=== PATIENT | male | born 1965 | race Caucasian/White ===

== ENCOUNTER 2022-08-02 17:26 | Emergency (ER) | payer OTHER ==
--- OUTSIDE RECORDS SUMMARY | 2022-08-02 17:29 | XMS REPORT | Continuity of Care Document ---
:1965 Author Organization [facility] t Address [address] [place] [address] Care Team Providers Name Role Phone Provider, [facility] Attending Clinician Unavailable Med Aguiar MD Attending Clinician MED AGUIAR Attending Clinician Unavailable Doctor Unassigned, [place] Attending Clinician Unavailable Problems Condition Condition Condition Status Onset Resolution Last Treating Co mments Source Name Details Category Date Date Treatment Clinician Date No known No known Disease Unive rs active active ity of problems problems [facility] Allergies, Adverse Reactions, Alerts Allergy Allergy Status Severity Reaction(s) Onset Inactive Treating Comm ents Source Name Type Date Date Clinician NO KNOWN Drug Active Univers ALLERGIE Class ity of S [facility] Social History Social Habit Start Date Stop Date Quantity Comments Source History of tobacco Cigarette Smoker University of use [facility] Exposure to Not sure [facility] SARS-CoV-2 (event) [facility] Cigarettes smoked 2020-12-04 2020-12-04 Univers ity of current (pack per 00:00:00 00:00:00 ) - Reported Branch Tobacco use and 2020-12-04 2020-12-04 Never used Universit y of exposure 00:00:00 00:00:00 [facility] Alcohol intake 2020-12-04 2020-12-04 Lifetime University of 00:00:00 00:00:00 non-drinker [facility] (finding) [place] Sex Ass[birth year] Universit y of 00:00:00 00:00:00 [facility] Smoking Status Start Date Stop Date Source Unknown if ever smoked [facility] Current every day smoker 2020-12-04 00:00:00 Uni versity of [facility] Medications Ordered Filled Start Stop Current Ordering Indication Dosage Frequency Signature Comments Components Source Medication Medication Date Date Medication? Clinician (SIG) Name Name sulfamethox 2020- No [id number] 1{tbl} Take 1 [facility] azole-trime 12-04 tablet by it y 00:00: 04:59 mouth 2 [place] (BACTRIM 00 :00 (two) Medical DS) 800-160 times Branch mg per daily for tablet 7 days. Vital Signs Vital Name Observation Time Observation Value Comments Source Systolic blood 2020-12-04 22:21:00 168 mm[Hg] Univer sity [facility] Diastolic blood 2020-12-04 22:21:00 107 [facility]Hg[facility] Heart rate 2020-12-04 22:14:00 87 /min [facility] Body temperature 2020-12-04 22:14:00 36.72 [facility] Res[facility] rate 2020-12-04 22:14:00 22 /min [facility] Body height 2020-12-04 22:14:00 182.9 cm [facility] Body weight 2020-12-04 22:14:00 145.746 kg [facility] BMI 2020-12-04 22:14:00 43.58 kg/m2 [facility] Oxygen saturation in 2020-12-04 22:14:00 99 /min [facility] Arterial blood by [facility] Pulse oximetry [place] Procedures Procedure Date / Time Performed Performing Clinician Sour e ASSIGNMENT OF BENEFITS 2020-12-04 22:07:06 Doctor Unassigned, No [facility] Branch Encounters Start End Encounter Admission Attending Care Care Encounter Source Date/Time Date/Time Type Type Clinicians Facility Department ID 2020-12-04 2020-12-04 Urgent Provider, [facility] [id number] Univers 17:09:14 18:03:41 Med [facility] [id number] madeleine gupta [place] [id number] [place] as Sofiya [phone] [place] [address] Branch [address] 2020-12-04 2020-12-04 Outpatient R STEFANIA [facility] [id number] Univers 16:40:00 16:40:00 MED ity of [facility] 2020-12-04 2020-12-04 Orders Doctor MARK [id number] [facility] 00:00:00 00:00:00 Only Unassigned, NISSA [id number] ity of [place] [facility] [id number] [place] [phone] [place] [address] Branch Results This patient has no known results.
[2022-08-02] MEDS ORDERED: TDAP (DIPHTH,PERTUSS(ACELL),TET VAC) 0.5 ML VIAL IMVAC ONE (19:07)
--- NOTE | 2022-08-02 19:19 | ER ---
Nurse's Notes [facility] [place] Name: Jorge Estrada Age: 56 yrs Sex: Male : 1965 Arrival Date: 08/02/2022 Time: 17:30 Bed DIS1 Private MD: Diagnosis: Laceration without foreign body, right lower leg Presentation: 08/02 17:34 Ebola Screen: Patient denies travel to an Ebola-affected area in the 21 days before 1 illness onset. Complicating Factors: There are no complicating factors for this patient. Initial Sepsis Screen: Does the patient meet any 2 criteria? No. Patient's initial sepsis screen is negative. Does the patient have a suspected source of infection? Yes: Skin breakdown/wound. Risk Assessment: Do you want to hurt yourself or someone else? Patient reports no desire to harm self or others. Onset of symptoms was August 02, 2022. 17:34 Method Of Arrival: Ambulatory ll1 17:34 Acuity: TALISHA 3 ll1 17:37 Chief complaint: Patient states: Accidentally cut R inner ankle when he dropped a knife ll1 on it 3 days ago. Started bleeding again today after showering. States BP is always that high. Coronavirus screen: Vaccine status: Patient reports being unvaccinated. Client denies travel out of the [place] in the last 14 days. At this time, the client does not indicate any symptoms associated with coronavirus-19. Triage Assessment: 17:40 General: Appears in no apparent distress. Behavior is calm, cooperative, appropriate ll1 for age. Pain: Complains of pain in R ankle Quality of pain is described as aching. Derm: Wound noted R inner ankle Reports laceration R inner ankle. Musculoskeletal: Circulation, motion, and sensation intact. Capillary refill < 3 seconds. Injury Description: Laceration. Historical: - Allergies: 17:33 No Known Drug Allergies; ll1 - Immunization history:: Client reports having NOT received the Covid vaccine. Last tetanus immunization: < 5 years ago. - Social history:: Smoking status: Patient reports the use of cigarette tobacco products, smokes one-half pack cigarettes per day. Screenin:25 [facility] ED Fall Risk Assessment (Adult) History of falling in the last 3 months, jb4 including since admission No falls in past 3 months (0 pts) Confusion or Disorientation No (0 pts) Intoxicated or Sedated No (0 pts) Impaired Gait No (0 pts) Mobility Assist Device Used No (0 pt) Altered Elimination No (0 pt) Score/Fall Risk Level 0 - 2 = Low Risk. Abuse screen: Denies threats or abuse. Nutritional screening: No deficits noted. Tuberculosis screening: No symptoms or risk factors identified. Assessment: 19:25 Reassessment: Patient appears in no apparent distress at this time. Patient and/or jb4 family updated on plan of care and expected duration. Pain level reassessed. Patient is alert, oriented x 3, equal unlabored respirations, skin warm/dry/pink. wound cleaned and bandaged. Vital Signs: 17:37 BP 206 / 133; Pulse 96; Resp 18; Temp 98.2; Pulse Ox 100% ; Weight 130.63 kg; Height 6 ll1 ft. 0 in. (182.88 cm); Pain 0/10; 17:37 Body Mass Index 39.06 (130.63 kg, 182.88 cm) ll1 ED Course: 17:30 Patient arrived in ED. rg4 17:34 Triage completed. ll1 17:34 Arm band placed on. ll1 18:38 Hardy Moreno NP is PHCP. pm1 18:38 Garland Reyna MD is Attending Physician. pm1 19:25 Patient has correct armband on for positive identification. Placed in gown. Bed in low jb4 position. Call light in reach. Side rails up X 1. 19:25 No provider procedures requiring assistance completed. Patient did not have IV access jb4 during this emergency room visit. Administered Medications: 19:20 Drug: Tetanus-Diphtheria Toxoid Adult 0.5 ml {Buyer Liaison: [employer] ([employer]). Exp: jb4 01/13/2023. Lot #: [id number]. } Route: IM; Site: left deltoid; Medication: 19:25 Vaccine Information Statement (VIS) provided today. Questions and/or concerns jb4 addressed. VIS edition date: February 04, 2021. Outcome: 19:18 Discharge ordered by . pm1 19:25 Discharged to home ambulatory. jb4 19:25 Condition: stable 19:25 Discharge instructions given to patient, Instructed on discharge instructions, follow up and referral plans. medication usage, wound care, Demonstrated understanding of instructions, follow-up care, medications, wound care, Prescriptions given X 1. 19:26 Patient left the ED. jb4 Signatures: Hardy Moreno NP ENROBING MACHINE FEEDER pm1 Jessi Ortiz rg4 Geovany Sky RN RN jb4 Meredith Roberts RN RN ll1 Corrections: (The following items were deleted from the chart) 17:40 17:37 Pulse 96bpm; Resp 18bpm; Pulse Ox 100%; Temp 98.2F; 130.63 kg; Height 6 ft. 0 ll1 in.; BMI: 39.0; Pain 0/10; ll1 17:42 17:37 Chief complaint: Patient states: Accidentally cut R inner ankle when he dropped a ll1 knife on it 3 days ago. Started bleeding again today after showering. ll1 17:43 17:34 Acuity: TALISHA 4 ll1 ll1
--- NOTE | 2022-08-02 19:19 | EDPHYS ---
Physician Documentation [facility] Name: Jorge Estrada Age: 56 yrs Sex: Male : 1965 Arrival Date: 08/02/2022 Time: 17:30 Bed DIS1 Private MD: ED Physician Garland Reyna HPI: 08/02 19:00 This 56 yrs old Male presents to ER via Ambulatory with complaints of Laceration To Leg.pm1 19:00 The patient has a laceration occurred at home, and there are no complicating factors. pm1 The laceration(s) is(are) located on the right heel medial aspect. Onset: The symptoms/episode began/occurred 3 day(s) ago. Associated signs and symptoms: The patient has no apparent associated signs or symptoms, Pertinent negatives: suspected foreign body, fever, swelling. The patient has not experienced similar symptoms in the past. The patient has not recently seen a physician. Historical: - Allergies: 17:33 No Known Drug Allergies; ll1 - Immunization history:: Client reports having NOT received the Covid vaccine. Last tetanus immunization: < 5 years ago. - Social history:: Smoking status: Patient reports the use of cigarette tobacco products, smokes one-half pack cigarettes per day. ROS: 19:00 Constitutional: Negative for fever, chills, and weight loss, Cardiovascular: Negative pm1 for chest pain, palpitations, and edema, Respiratory: Negative for shortness of breath, cough, wheezing, and pleuritic chest pain, MS/Extremity: Negative for injury and deformity. 19:00 Neuro: Negative for headache, weakness, numbness, tingling, and seizure. 19:00 Skin: Positive for laceration(s), of the right heel, Negative for cellulitis, discoloration, swelling, discharge. 19:00 All other systems are negative. Exam: 19:00 Constitutional: This is a well developed, well nourished patient who is awake, alert, pm1 and in no acute distress. Head/Face: Normocephalic, atraumatic. 19:00 MS/ Extremity: Pulses equal, no cyanosis. Neurovascular intact. Full, normal range of motion. 19:00 Cardiovascular: Exam negative for acute changes, Rate: normal, Rhythm: regular, Pulses: no pulse deficits are appreciated. 19:00 Respiratory: Exam negative for acute changes, respiratory distress, shortness of breath. 19:00 Skin: Appearance: normal except for affected area, injury, laceration(s), the wound is approximately 1.5 cm(s), of the right heel, that can be described as clean, no foreign body, irregular, without bleeding. Vital Signs: 17:37 BP 206 / 133; Pulse 96; Resp 18; Temp 98.2; Pulse Ox 100% ; Weight 130.63 kg; Height 6 ll1 ft. 0 in. (182.88 cm); Pain 0/10; 17:37 Body Mass Index 39.06 (130.63 kg, 182.88 cm) ll1 MDM: 19:00 Patient medically screened. pm1 19:17 Data reviewed: vital signs. pm1 19:17 Care significantly affected by the following chronic conditions: Diabetes. pm1 19:17 Counseling: I had a detailed discussion with the patient and/or guardian regarding: the pm1 historical points, exam findings, and any diagnostic results supporting the discharge/admit diagnosis, the need for outpatient follow up, to return to the emergency department if symptoms worsen or persist or if there are any questions or concerns that arise at home. 19:17 Differential diagnosis: superficial laceration, abrasion, cellulitis. pm1 08/02 19:00 Order name: Wound Care; Complete Time: 19:20 pm1 Administered Medications: 19:20 Drug: Tetanus-Diphtheria Toxoid Adult 0.5 ml {Industry Analyst: [employer] ([email or web address]). Exp: jb4 01/13/2023. Lot #: [id number]. } Route: IM; Site: left deltoid; Disposition Summary: 08/02/22 19:18 Discharge Ordered Location: Home pm1 Problem: new pm1 Symptoms: have improved pm1 Condition: Stable pm1 Diagnosis - Laceration without foreign body, right lower leg pm1 Followup: pm1 - With: Emergency Department - When: As needed - Reason: Worsening of condition Followup: pm1 - With: Private Physician - When: 2 - 3 days - Reason: Recheck today's complaints, Continuance of care, Re-evaluation by your physician Discharge Instructions: - Discharge Summary Sheet pm1 - Laceration Care, Adult pm1 Forms: - Medication Reconciliation Form pm1 - Thank You Letter pm1 - Antibiotic Education pm1 - Prescription Opioid Use pm1 Prescriptions: - Cephalexin 500 mg Oral Capsule - take 1 capsule by ORAL route every 8 hours for 10 days; 30 capsule; Refills: 0, pm1 Product Selection Permitted Signatures: Hardy Moreno NP FIBERGLASS FINISHER pm1 Geovany Sky, RN RN jb4 Meredith Roberts RN RN ll1
[2022-08-02 19:47] VITALS: BP 206/133; TEMP 98.2; O2SAT 100
== END 2022-08-02 19:26 | disposition home or self-care (01) ==
LOC: ER 17:26
DX: S81.811A Laceration without foreign body, right lower leg, initial encounter (principal); Z23 Encounter for immunization; F17.210 Nicotine dependence, cigarettes, uncomplicated

== ENCOUNTER 2024-06-06 08:11 | Day surgery (SDC) | payer OTHER ==
[2024-06-04 16:00] LABS: Absolute Eosinophils 0.4 K/uL (0-0.5); Absolute Lymphocytes (CBC) 1.8 K/uL (0.7-4.9); Absolute Monocytes 1.1 K/uL (0.1-1.3); Absolute Neutrophil 11.2 K/uL (1.8-8.0); Basophils % 0.3 % (0-1.3); Eosinophils % 2.7 % (0-4.4); Hematocrit 39.5 % (39.6-49.0); Hemoglobin 13.2 g/dL (13.6-17.9); Lymphocytes % 12.3 % (15.3-44.8); MCH 29.4 pg (27.0-35.0); MCHC 33.4 g/dL (32.0-36.0); MCV 88.1 fL (80-100); MPV 8.4 fL (7.6-11.3); Monocytes % 7.4 % (3.3-12.3); Neutrophils % 77.3 % (41.7-73.7); Nucleated Red Blood Cells % 0.1 % (0-0); Platelets 296 thou/uL (152-406); RBC Red Blood Cell Count 4.49 M/uL (4.33-5.43); Red Cell Distribution Width 14.8 % (12.1-15.2)
[2024-06-04 16:14] LABS: Anion Gap 8.9 mEq/L (5.0-15.0); Potassium 3.9 mEq/L (3.5-5.1)
[2024-06-06] MEDS: NA CHLORIDE 0.9% 1,000 ML ONE (08:30)
[2024-06-06] MEDS ORDERED: ONDANSETRON 4 MG/2 ML VIAL ONE (08:56)
[2024-06-06] MEDS ORDERED: FENTANYL CITR 100 MCG/2 ML ONE (08:56)
[2024-06-06] MEDS ORDERED: propofoL 200 MG/20 ML VIAL IV ONE (08:56)
[2024-06-06] MEDS ORDERED: ROCURONIUM 50 MG/5 ML VIAL IV ONE (08:56)
[2024-06-06] MEDS ORDERED: LIDOCAINE 2% MPF 5 ML VIAL ONE (08:56)
[2024-06-06] MEDS ORDERED: MIDAZOLAM HCL 2 MG/2 ML INJ ONE (08:56)
[2024-06-06] MEDS ORDERED: COLLAGENASE 30 GM OINTMENT TOP ONE (09:00)
[2024-06-06] MEDS ORDERED: HYDROMORPHONE HCL 1 MG/ML INJ ONE (09:05)
[2024-06-06] MEDS: CEFAZOLIN SODIUM 2 GM/VIAL ONE (10:25)
[2024-06-06] MEDS ORDERED: dexAMETHasone 4 MG/ML VIAL ONE (10:25)
[2024-06-06] MEDS ORDERED: GLYCOPYRROLATE 0.2 MG/ML SYR ONE (10:26)
[2024-06-06] MEDS ORDERED: KETAMINE HCL IN 0.9 % NACL 50 MG/5 ML SYRINGE IV ONE (10:26)
[2024-06-06] MEDS ORDERED: EPHEDRINE SULF 50 MG/ML VIAL ONE (10:31)
[2024-06-06] MEDS ORDERED: NEOSTIGMINE 1 MG/ML -10 ML VIAL ONE (10:46)
--- NOTE | 2024-06-06 11:01 | P.OP ---
Preoperative diagnosis: Bilateral Calf Chronic Non-Healing Wounds Postoperative diagnosis: Bilateral Calf Chronic Non-Healing Wounds Primary procedure: Debridement of Bilateral Calf Chronic Non-Healing Wounds Anesthesia: GETA Estimated blood loss: <1cc Specimen: Cultures, Debridement Tissue Findings: Venous Stasis Ulcers of Bilateral Lower Legs Complications: None Transferred to: Recovery Room Condition: Good
[2024-06-06] MEDS: HYDROCODONE/APAP 10/325 TAB ONE (12:45)
[2024-06-06 15:07] VITALS: BP 150/90; O2SAT 95
[2024-06-06 15:09] VITALS: TEMP 98
--- NOTE | 2024-06-06 22:03 | OP ---
Date of Procedure: 06/06/2024 Surgeon: Jai Tapia MD, Preoperative Diagnosis: Bilateral calf chronic nonhealing wounds. Postoperative Diagnosis: Bilateral calf chronic nonhealing wounds. Procedure Performed: Debridement of bilateral calf chronic nonhealing wounds. Anesthesia: General endotracheal. Estimated Blood Loss: 1 cc. Specimens: Culture sent for both aerobic and anaerobic speciation, debridement tissue. Findings: Venous stasis ulcers, bilateral lower wounds on the posterior aspect of bilateral calves, approximately 12 cm x 7 cm on the right calf. Additional satellite of 3 cm x 2 cm on the right later al calf. Two lesions of the left lower calf; one 4 cm x 4 cm and inferior posterior calf, which was 4 cm x 4.5 cm. Complications: None. Disposition: The patient was transferred to recovery room in good condition. Procedure In Detail: After informed consent was obtained, the patient was brought to the operating r oom, prepped in the usual sterile fashion. After adequate anesthesia was achieved, I used a curette to take down all nonviable tissue in these posterior calf wounds as described on bilateral calf areas . After the curette was completed, I used a combination of sharp dissection with pickups, and sharp dissection using Metzenbaum scissors circumferentially around to remove all nonviable tissue. After this was performed, some of the tissue was sent for both aerobic and anaerobic speciation. The area was copiously irrigated and pulse lavaged at this point thoroughly to all wounds as described above. Then, hemostasis was easily achieved with minimal electrocautery. The wound was then packed with Va she-soaked gauze and both lower extremities were wrapped with both Kerlix and Roman bandage to just bel ow the knee beginning at the feet. The patient tolerated the procedure without incident or complicat ion and transferred to PACU in good condition. All counts were correct at the end of the case. TK/MODL Voice ID: [id number] Report ID: [id number]
== END 2024-06-06 13:15 | disposition home or self-care (01) ==
LOC: OR 08:11
PROVIDERS: ATTEND Surgery
PROC: 0JDN3ZZ Extraction of Right Lower Leg Subcutaneous Tissue and Fascia, Percutaneous Approach (ICD-10-PCS; 2024-06-06)
PROC: 0JDP3ZZ Extraction of Left Lower Leg Subcutaneous Tissue and Fascia, Percutaneous Approach (ICD-10-PCS; principal; 2024-06-06 09:30)
DX: L97.222 Non-pressure chronic ulcer of left calf with fat layer exposed (principal); L97.212 Non-pressure chronic ulcer of right calf with fat layer exposed; I96 Gangrene, not elsewhere classified
CPT/HCPCS: 11042; 11045 ×5; 87070; 85025; 80048; 36415; 87205; 82947 ×2; 88304; 87075; J2704; J1100; J2710; J2003; J2250; J3010; J1171; J2405; J7030; 87077; 87186; J3590

== ENCOUNTER 2024-06-06 18:59 | Emergency (ER) | payer OTHER ==
[2024-06-06 20:24] LABS: Specific Gravity 1.019 (1.005-1.030); Sqamous Epithelial None Seen /HPF (None Seen); Transitional Epithelial <5 /HPF (None Seen); Urine Bacteria None Seen /HPF (<20); Urine Bilirubin NEGATIVE (Negative); Urine Blood Trace (Negative); Urine Clarity Clear (Clear); Urine Color Light-Yellow (Yellow); Urine Culture Reflex Order NOT NEEDED; Urine Glucose 1+ (Negative); Urine Ketones NEGATIVE (Negative); Urine Micro Reflex YN NO BILL MICROSCOPIC; Urine Mucus Slight /HPF (None Seen); Urine Nitrite NEGATIVE (Negative); Urine Protein 1+ (Negative); Urine RBC <5 /HPF (None Seen); Urine Urobilinogen Normal (Normal); Urine WBC <5 /HPF (<5)
[2024-06-06] MEDS ORDERED: ONDANSETRON 4 MG (ODT) TAB ONE (20:24)
[2024-06-06] MEDS ORDERED: HYDROCODONE/APAP 10/325 TAB ONE (20:25)
--- NOTE | 2024-06-06 20:46 | ER ---
Nurse's Notes [facility] Name: Jorge Estrada Age: 58 yrs Sex: Male : 1965 Arrival Date: 06/06/2024 Time: 18:59 Bed 19 Private MD: Madan Cano Diagnosis: Acute urinary retention, acute bladder outlet obstruction secondary to anesthesia Presentation: 06/06 19:17 Chief complaint: Patient states: he had surgery today here on diabetic ulcers to BLE me1 but hasnt been able to void since. Pain is 8/10 to suprapubic abdomen. Coronavirus screen: Vaccine status: Patient reports being unvaccinated. Ebola Screen: No symptoms or risks identified at this time. Initial Sepsis Screen: Does the patient meet any 2 criteria? No. Patient's initial sepsis screen is negative. Does the patient have a suspected source of infection? No. Patient's initial sepsis screen is negative. Risk Assessment: Do you want to hurt yourself or someone else? Patient reports no desire to harm self or others. Onset of symptoms was June 06, 2024 at 17:00. 19:17 Method Of Arrival: Wheelchair me1 19:17 Acuity: TALISHA 4 me1 Historical: - Allergies: 19:18 No Known Allergies; me1 - PMHx: 19:18 Diabetes mellitus; Hypertensive disorder; anxiety; me1 - PSHx: 19:18 hernia repair; me1 - Immunization history:: Adult Immunizations up to date. - Infectious Disease History:: Denies. - Social history:: Smoking status: Patient reports the use of cigarette tobacco products, smokes one-half pack cigarettes per day. - Family history:: not pertinent. Screenin:08 [facility] ED Fall Risk Assessment (Adult) History of falling in the last 3 months, bp including since admission No falls in past 3 months (0 pts) Confusion or Disorientation No (0 pts) Intoxicated or Sedated No (0 pts) Impaired Gait No (0 pts) Mobility Assist Device Used Yes (1 pt) Altered Elimination Yes (1 pt) Score/Fall Risk Level 0 - 2 = Low Risk Oriented to surroundings, Maintained a safe environment, Hourly rounding (assess needs \T\ fall precautionary measures) done. Abuse screen: Denies threats or abuse. Nutritional screening: No deficits noted. Tuberculosis screening: No symptoms or risk factors identified. Assessment: 20:08 General: Appears in no apparent distress. Behavior is calm, cooperative, appropriate bp for age. Pain: Denies pain. Neuro: No deficits noted. Neuro: Level of Consciousness is awake, alert, obeys commands, Oriented to person, place, time. Cardiovascular: Patient's skin is warm and dry. Respiratory: Airway is patent Trachea midline Respiratory effort is even, Breath sounds are clear. GI: Abdomen is round obese, Bowel sounds present X 4 quads. Abd is soft and non tender. : Reports inability to void. EENT: No signs and/or symptoms were reported regarding the EENT system. Derm: No signs and/or symptoms reported regarding the dermatologic system. Musculoskeletal: Circulation, motion, and sensation intact. Range of motion: intact in all extremities. 20:55 Reassessment: Patient and/or family updated on plan of care and expected duration. Pain bp level reassessed. Patient is alert, oriented x 3, equal unlabored respirations, skin warm/dry/pink. Patient states feeling better. Patient states symptoms have improved. Vital Signs: 19:17 Pulse 98; Resp 20; Temp 98.2; Pulse Ox 99% ; Weight 134.72 kg; Height 6 ft. 0 in. ; me1 Pain 8/10; 19:41 BP 184 / 103; Pulse 99; Resp 18; Temp 98.2; Pulse Ox 99% on R/A; bp 20:21 BP 181 / 92; Pulse 97; Resp 18; Pulse Ox 99% on R/A; bp 21:00 BP 165 / 89; Pulse 93; Resp 17; Temp 99(O); Pain 3/10; bp 19:17 Body Mass Index 40.28 (134.72 kg, 182.88 cm) me1 19:17 Pain Scale: Adult me1 21:00 Pain Scale: Adult bp ED Course: 19:01 Patient arrived in ED. gm2 19:02 Madan Cano MD is Private Physician. gm2 19:07 Yissel Dougherty MD is Attending Physician. sp3 19:17 Noe Calzada, RN is Primary Nurse. bp 19:18 Triage completed. me1 19:18 Arm band placed on Patient placed in an exam room. me1 20:07 Attending Physician role handed off by Yissel Dougherty MD sp4 20:07 Scott Whitman MD is Attending Physician. sp4 20:08 Patient has correct armband on for positive identification. Placed in gown. Bed in low bp position. Side rails up X 1. Door closed. Noise minimized. Warm blanket given. Pillow given. Verbal reassurance given. 20:08 No provider procedures requiring assistance completed. bp 20:43 Kishan Vasquez MD is Referral Physician. sp4 21:10 Patient did not have IV access during this emergency room visit. bp 21:11 Provided Education on: POST ER CARE. bp Administered Medications: 20:15 Drug: [place] PO 10 mg-325 mg 1 tabs PO once Route: PO; bp 20:34 Follow up: Response: No adverse reaction; Pain is decreased bp 20:15 Drug: Ondansetron PO 4 mg PO once Route: PO; bp 20:34 Follow up: Response: No adverse reaction; Pain is decreased bp Medication: 20:08 VIS not applicable for this client. bp Outcome: 20:46 Discharge ordered by MD. sp4 21:11 Discharged to home via wheelchair, bp 21:11 Condition: stable 21:11 Instructed on discharge instructions, follow up and referral plans. Demonstrated understanding of instructions, follow-up care, 21:12 Patient left the ED. bp Signatures: Noe Calzada, RN RN bp Yissel Dougherty MD MD sp3 Scott Whitman MD MD sp4 Rebecca Funez RN RN me1 Antonia Dominique 2
--- NOTE | 2024-06-06 20:47 | EDPHYS ---
Physician Documentation [facility] Name: Jorge Estrada Age: 58 yrs Sex: Male : 1965 Arrival Date: 06/06/2024 Time: 18:59 Bed 19 Private MD: Madan Cano ED Physician Scott Whitman HPI: 06/06 20:07 This 58 yrs old Male presents to ER via Wheelchair with complaints of Urinary sp4 Retention. 06/07 19:12 Patient presents with acute urinary retention starting this morning after his bilateral sp4 lower extremity debridement in operating room . . Historical: - Allergies: 06/06 19:18 No Known Allergies; me1 - PMHx: 19:18 Diabetes mellitus; Hypertensive disorder; anxiety; me1 - PSHx: 19:18 hernia repair; me1 - Immunization history:: Adult Immunizations up to date. - Infectious Disease History:: Denies. - Social history:: Smoking status: Patient reports the use of cigarette tobacco products, smokes one-half pack cigarettes per day. - Family history:: not pertinent. ROS: 06/07 19:12 Constitutional: Negative for fever, chills, and weight loss, positive for bladder pain sp4 and acute urinary retention All other systems are negative, Exam: 19:12 Constitutional: This is a well developed, well nourished patient who is awake, alert, sp4 and in no acute distress. Head/Face: Normocephalic, atraumatic. Eyes: Pupils equal round and reactive to light, extra-ocular motions intact. Lids and lashes normal. Conjunctiva and sclera are not injected. Cornea within normal limits. Periorbital areas with no swelling, redness, or edema. ENT: Nares patent. No nasal discharge, no septal abnormalities noted. Tympanic membranes are normal and external auditory canals are clear. Oropharynx with no redness, swelling, or masses, exudates, or evidence of obstruction, uvula midline. Mucous membranes moist. Neck: Trachea midline, no thyromegaly or masses palpated, and no cervical lymphadenopathy. Supple, full range of motion without nuchal rigidity, or vertebral point tenderness. Chest/axilla: Normal chest wall appearance and motion. Nontender with no deformity. No lesions are appreciated. Cardiovascular: Regular rate and rhythm with a normal S1 and S2. No gallops, murmurs, or rubs. Normal PMI, no JVD. No pulse deficits. Respiratory: Lungs have equal breath sounds bilaterally, clear to auscultation and percussion. No rales, rhonchi or wheezes noted. No increased work of breathing, no retractions or nasal flaring. Abdomen/GI: Soft, with normal bowel sounds. No distension or tympany. No guarding or rebound. No evidence of tenderness throughout. distended urinary bladder Back: No spinal tenderness. No costovertebral tenderness. Male : Normal genitalia with no discharge or lesions. Tender and distended urinary bladder Skin: Warm, dry with normal turgor. Normal color with no rashes, no lesions, and no evidence of cellulitis. MS/ Extremity: Pulses equal, no cyanosis. Neurovascular intact. Full, normal range of motion. Neuro: Awake and alert, GCS 15, oriented to person, place, time, and situation. Cranial nerves II-XII grossly intact. Motor strength 5/5 in all extremities. Sensory grossly intact. Psych: Awake, alert, with orientation to person, place and time. Behavior, mood, and affect are within normal limits Vital Signs: 06/06 19:17 Pulse 98; Resp 20; Temp 98.2; Pulse Ox 99% ; Weight 134.72 kg; Height 6 ft. 0 in. ; me1 Pain 8/10; 19:41 BP 184 / 103; Pulse 99; Resp 18; Temp 98.2; Pulse Ox 99% on R/A; bp 20:21 BP 181 / 92; Pulse 97; Resp 18; Pulse Ox 99% on R/A; bp 21:00 BP 165 / 89; Pulse 93; Resp 17; Temp 99(O); Pain 3/10; bp 19:17 Body Mass Index 40.28 (134.72 kg, 182.88 cm) me1 19:17 Pain Scale: Adult me1 21:00 Pain Scale: Adult bp Procedures: 06/07 19:12 Performed Gregory Cath by RN. sp4 MDM: 06/06 19:28 Medical Screening Exam initiated sp3 06/07 19:12 Differential diagnosis: nonspecific abdominal pain, urinary retention, Gregory catheter sp4 problem, prostatitis, urethritis. Data reviewed: vital signs, nurses notes. ED course: Gregory catheter alleviated over 1 L of urine patient feels much better. Stable for discharge home. Will advise follow-up with urology in 1 to 2 weeks for voiding trial. . 06/06 19:28 Order name: UAM; Complete Time: 20:38 sp3 06/06 19:28 Order name: Gregory; Complete Time: 19:40 sp3 06/06 19:28 Order name: Gregory Leg Bag; Complete Time: 19:40 sp3 Administered Medications: 06/06 20:15 Drug: Charlotte PO 10 mg-325 mg 1 tabs PO once Route: PO; bp 20:34 Follow up: Response: No adverse reaction; Pain is decreased bp 20:15 Drug: Ondansetron PO 4 mg PO once Route: PO; bp 20:34 Follow up: Response: No adverse reaction; Pain is decreased bp Disposition Summary: 06/06/24 20:46 Discharge Ordered Notes: Location: Home sp4 Problem: new sp4 Symptoms: have improved sp4 Condition: Stable sp4 Diagnosis - Acute urinary retention, acute bladder outlet obstruction secondary to anesthesia sp4 Followup: sp4 - With: Kishan Vasquez MD - When: 7 - 10 days - Reason: Recheck today's complaints Discharge Instructions: - Discharge Summary Sheet sp4 - Indwelling Urinary Catheter Care, Adult, [id number] sp4 Forms: - Patient Portal Instructions sp4 Signatures: Dispatcher [employer] Noe Laureano, RN RN bp Yissel Dougherty MD MD sp3 Scott Whitman MD MD sp4 Rebecca Funez RN RN me1
[2024-06-06 23:11] VITALS: O2SAT 99
[2024-06-06 23:15] VITALS: BP 165/89; TEMP 99
--- OUTSIDE RECORDS SUMMARY | 2024-06-09 08:32 | XMS REPORT | Continuity of Care Document ---
Author Name Unknown Address [address] [facility] [address] [place] [address] [facility] thconnect Address [address] [facility] [address] [place] [address] Care Team Providers Care Sales And Marketing Intern Name Role Phone JORDAN SULLIVAN Attending Clinician Unavailable REIROCHELLE GONZÁLES Attending Clinician Unavailable PL, TECH 1 Attending Clinician Unavailable MD NIKOLAY Attending Clinician Unavailab CHACHO Darden Attending Clinician Unavailab CHILO Powell Attending Clinician Unavailable DAVID SNEED Attending Clinician UnavailFRANCI Egan Attending Clinician Unavailable LAB90 Attending Clinician Unavailable ROE ROJO Attending Clinician Unavailable TEE BLAKE Attending Clinician Unavailab JAKOB Humphrey Attending Clinician Unavailable MACIEJ MORENO Attending Clinician Unavailable JONO ELDER Attending Clinician Unavailable Provider, [facility] Attending Clinician Un available Med Aguiar MD Attending Clinician MED AGUIAR Attending Clinician Unavailable Doctor Unassigned, [place] Attending Clinician U navailable Payers Payer Name Policy Type Policy Number Effective Date Expirati on Date Source AETELIA STALLINGS [employer] [employer]: H[employer] LEAD 94 ON STAND 9 [id number] 2022 00:00:00 AETNA [id number] 2022 00:00:00 Problems Condition Name Condition Details Condition Category Status Onset Date Resolution Date Last Treatment Date Treating Clinician Comments Source ASHA (obstructi ve sleep apnea) ASHA (obstructi ve sleep apnea) Disease Active 2022-07 0-18 00:00: 00 Lupe Rosado - Jacob medrano Low testostero ne in male Low testostero ne in male Disease Active 2022-07 00:00: 00 Lupe Priceold - Externa l Class 2 severe obesity due to excess calories with serious comorbidit y and body mass index (BMI) of 36.0 to 36.9 in adult Class 2 severe obesity due to excess calories with serious comorbidit y and body mass index (BMI) of 36.0 to 36.9 in adult Disease Active 2022-0718 00:00: 00 Lupe Priceold - Externa l Asymptomat ic varicose veins of both lower extremitie s Asymptomat ic varicose veins of both lower extremitie s Disease Active 10-13 00:00: 00 Lupe Seradhaold - Externa l Skin ulcer with fat layer exposed (multi HCC) Skin ulcer with fat layer exposed (multi HCC) Disease Active 10-13 00:00: 00 Lupe Priceold - Externa l Mild major depression Mild major depression Disease Active 09-21 00:00: 00 Lupe Priceold - Externa l Drug abuse Drug abuse Disease Active 09-05 00:00: 00 Lupe Priceold - Externa l Current every day smoker Current every day smoker Disease Active 09-05 00:00: 00 Lupe Priceold - Externa l Primary hypertensi on Primary hypertensi on Disease Active 09-05 00:00: 00 Lupe Priceold - Externa l 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, 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, without long-term current use of insulin Disease Active 09-05 00:00: 00 Lupe Priceold - Externa l NICO (generaliz ed anxiety disorder) NICO (generaliz ed anxiety disorder) Disease Active 09-05 00:00: 00 Lupe Priceold - Externa l PVD (periphera l vascular disease) PVD (periphera l vascular disease) Disease Active 09-05 00:00: 00 Lupe Priceold - Externa l Prediabete s Prediabete s Disease Active 09-05 00:00: 00 Lupe Rosado - Externa l No known active problems No known active problems Disease [facility] Allergies, Adverse Reactions, Alerts Allergy Name Allergy Type Status Severity Reaction(s) Onset Date Inactive Date Treating Clinician Comments Source Lisinopr il Propensi ty to adverse reaction s to drug Active Other 10-31 00:00: 00 Cough Lupe Rosado - Externa l NO KNOWN ALLERGIE S Drug Class Active [facility] Social History Social Habit Start Date Stop Date Quantity Comments Source Gender identity Juana Rosado - External Sexual orientation K wiliam Ashlee - External History of tobacco use Cigarette Smoker Lupe valdez - External Exposure to SARS-CoV-2 (event) Not sure [facility] Alcohol intake 2023-05-07 00:00:00 2023-05-07 00:00:00 Lifetime non-drinker (finding) Lupe Rosado - External Cigarettes smoked current (pack per day) - Reported 2023-04-18 00:00:00 2023-04-18 00:00:00 Lupe Rosado - External Cigarette pack-years 2023-04-18 00:00:00 2023-04-18 00:00:00 Lupe Rosado - External Education - What is the highest level of school you have completed or the highest degree you have received? 2023-04-18 00:00:00 2023-04-18 00:00:00 High school graduate Lupe Rosado - External History of Social function 2023-04-18 00:00:00 2023-04-18 00:00:00 Lupe Rosado - External Tobacco use and exposure 2020-12-04 00:00:00 2020-12-04 00:00:00 Never used [facility] Sex Assigned At 1965 00:00:00 1965 00:00:00 Lupe Rosado - External Smoking Status Start Date Stop Date Source Unknown if ever smoked [facility] Smokes tobacco daily 2023-04-18 00:00:00 Lupe Rosado - External Medications Ordered Medication Name Filled Medication Name Start Date Stop Date Current Medication? Ordering Clinician Indication Dosage Frequency Signature (SIG) Comments Components Source Losartan Potassium (COZAAR) 100 MG oral Tablet 2022-07 00:00: 00 Yes [id number] 100mg Take 1 tablet (100 mg total) by mouth daily. Lupe medrano [place] [facility] Syringes does not apply Misc 2022-07 00:00: 00 Yes [id number] 1 inch 18G needle with 5 cc luer lock syringe for drawing up testostero ne. Lupe medrano BD Plastipak Syringe 21G X 1" 3 ML does not apply Misc 2022-07 00:00: 00 Yes See Admin Instructio ns. Lupe medrano BD Hypodermic Needle 18G X 1" does not apply Misc 2022-07 00:00: 00 Yes USE DIRECTED TO DRAW UP WITH FOR TESTOSTERO NE Lupe Donohueosteron e Cypionate (DEPO-TESTO STERONE) 200 MG/ML intramuscul ar Solution 2022-07 00:00: 00 08-18 05:59 :00 No [id number] 200mg Inject 200 mg into the muscle every 14 days. Lupe medrano Alprazolam 1 MG oral Tablet 2022-07 00:00: 00 Yes [id number] 1mg QD Take 1 tablet (1 mg total) by mouth nightly as needed for anxiety. Lupe medrano Carvedilol (Coreg) 12.5 MG oral Tablet 2022-07 00:00: 00 Yes [id number] 12.5mg Take 1 tablet (12.5 mg total) by mouth in the morning and 1 tablet (12.5 mg total) in the evening. Take with meals. Lupe medrano Testosteron e Cypionate (DEPO-TESTO STERONE) 200 mg/mL - Every 14 Days 2022-07 0-11 16:15: 00 08-29 17:14 :00 No [id number] 200mg Lupe medrano Tadalafil (Cialis) 5 MG oral Tablet 2022-07 0-09 00:00: 00 10-06 04:59 :00 No [id number] 5mg QD Take 1 tablet (5 mg total) by mouth daily as needed for erectile dysfunctio n. Lupe medrano Santyl 250 UNIT/GM apply externally Ointment 927 00:00: 00 Yes Lupe medrano [employer] ([facility]) apply externally Solution 823 00:00: 00 Yes USE DIRECTED ONCE DAILY FOR 14 DAYS Lupe medrano Alprazolam 1 MG oral Tablet 808 00:00: 00 04-18 00:00 :00 No [id number] 1mg QD Take 1 tablet (1 mg total) by mouth nightly as needed for anxiety Lupe medrano Alprazolam 1 MG oral Tablet 01-16 00:00: 00 Yes [id number] 1mg QD Take 1 tablet (1 mg total) by mouth nightly as needed for anxiety Lupe medrano Amlodipine Besylate (Norvasc) 5 MG oral Tablet 01-16 00:00: 00 Yes [id number] 5mg Take 1 tablet (5 mg total) by mouth daily Lupe medrano Losartan Potassium (COZAAR) 100 MG oral Tablet 01-16 00:00: 00 Yes [id number] 100mg Take 1 tablet (100 mg total) by mouth daily Lupe medrano Metformin HCl 500 MG oral Tablet 01-16 00:00: 00 Yes [id number] 500mg Take 1 tablet (500 mg total) by mouth in the morning and 1 tablet (500 mg total) in the evening. Take with meals. Lupe medrano Carvedilol (Coreg) 6.25 MG oral Tablet 01-16 00:00: 00 04-18 00:00 :00 No [id number] 6.25mg Take 1 tablet (6.25 mg total) by mouth in the morning and 1 tablet (6.25 mg total) in the evening. Take with meals. Lupe medrano Doxycycline Hyclate 100 MG oral Capsule 6 00:00: 00 01-16 00:00 :00 No [id number] 100mg Take 1 capsule (100 mg total) by mouth 2 times daily for 7 days Lupe medrano Amlodipine Besylate (Norvasc) 5 MG oral Tablet 11-28 00:00: 00 Yes [id number] 5mg Take 1 tablet (5 mg total) by mouth daily Lupe medrano Carvedilol (Coreg) 6.25 MG oral Tablet 11-28 00:00: 00 Yes [id number] 6.25mg Take 1 tablet (6.25 mg total) by mouth in the morning and 1 tablet (6.25 mg total) in the evening. Take with meals. Lupe medrano Metformin HCl 500 MG oral Tablet 11-28 00:00: 00 Yes [id number] 500mg Take 1 tablet (500 mg total) by mouth in the morning and 1 tablet (500 mg total) in the evening. Take with meals. Lupe medrano Alprazolam 1 MG oral Tablet 11-28 00:00: 00 Yes [id number] 1mg QD Take 1 tablet (1 mg total) by mouth nightly as needed for anxiety Lupe medrano Losartan Potassium (COZAAR) 100 MG oral Tablet 11-28 00:00: 00 01-16 00:00 :00 No [id number] 100mg Take 1 tablet (100 mg total) by mouth daily Lupe medrano Doxycycline Hyclate 100 MG oral Capsule 11-14 00:00: 00 11-28 00:00 :00 No [id number] 100mg Take 1 capsule (100 mg total) by mouth 2 times daily for 7 days Lupe medrano Mupirocin (BACTROBAN) 2 % apply externally Ointment 10-19 00:00: 00 Yes [id number] Apply 1 applicatio n. topically 3 times daily Lupe medrano Metformin HCl 500 MG oral Tablet 10-19 00:00: 00 11-28 00:00 :00 No [id number] 1000mg Take 2 tablets (1,000 mg total) by mouth in the morning and 2 tablets (1,000 mg total) in the evening. Take with meals. Lupe medrano Alprazolam 2 MG oral Tablet 10-13 12:05: 07 10-13 00:00 :00 No 2mg QD Take 1 tablet (2 mg total) by mouth nightly as needed Lupe medrano Carvedilol (Coreg) 6.25 MG oral Tablet 10-13 00:00: 00 11-28 00:00 :00 No [id number] 6.25mg Take 1 tablet (6.25 mg total) by mouth in the morning and 1 tablet (6.25 mg total) in the evening. Take with meals. Lupe medrano Alprazolam 1 MG oral Tablet 10-13 00:00: 00 11-28 00:00 :00 No [id number] 1mg QD Take 1 tablet (1 mg total) by mouth nightly as needed for anxiety Lupe medrano Lisinopril 40 MG oral Tablet 09-14 00:00: 00 Yes [id number] 40mg Take 1 tablet (40 mg total) by mouth daily Lupe medrano Amlodipine Besylate (Norvasc) 5 MG oral Tablet 09-14 00:00: 00 11-28 00:00 :00 No [id number] 5mg Take 1 tablet (5 mg total) by mouth daily Lupe medrano Mupirocin (BACTROBAN) 2 % apply externally Ointment 09-12 00:00: 00 Yes [id number] Apply 1 applicatio n. topically 3 times daily Lupe medrano Alprazolam 2 MG oral Tablet 09-05 08:14: 52 Yes 2mg QD Take 2 mg by mouth nightly as needed Lupe medrano Lisinopril 20 MG oral Tablet 09-05 00:00: 00 Yes [id number] 20mg Take 1 tablet (20 mg total) by mouth daily Lupe medrano Metformin HCl 500 MG oral Tablet 09-05 00:00: 00 Yes [id number] 500mg Take 1 tablet (500 mg total) by mouth in the morning and 1 tablet (500 mg total) in the evening. Take with meals. Lupe medrano Propranolol HCl 10 MG oral Tablet 09-05 00:00: 00 Yes [id number] 20mg Take 2 tablets (20 mg total) by mouth 3 times daily Lupe medrano Doxycycline Hyclate 100 MG oral Tablet 09-05 00:00: 00 Yes [id number] 100mg Take 1 tablet (100 mg total) by mouth 2 times daily Lupe medrano Mupirocin (BACTROBAN) 2 % apply externally Ointment 09-05 00:00: 00 Yes [id number] Apply 1 applicatio n. topically 3 times daily Lupe medrano Escitalopra m Oxalate (Lexapro) 10 MG oral Tablet 09-05 00:00: 00 09-05 00:00 :00 No [id number] 10mg Take 1 tablet (10 mg total) by mouth daily Lupe medrano sulfamethox azole-trime thoprim (BACTRIM DS) 800-160 mg per tablet 12-04 00:00: 00 12-12 04:59 :00 No [id number] 1{tbl} Take 1 tablet by mouth 2 (two) times daily for 7 days. [facility] Vital Signs Vital Name Observation Time Observation Value Comments S ource Systolic blood pressure 2023-04-18 16:12:00 150 mm[Hg] Lupe Perez ld - External Diastolic blood pressure 2023-04-18 16:12:00 95 mm[Hg] Lupe guallpa - External Heart rate 2023-04-18 15:54:00 91 /min Annelise Rosado - External Body temperature 2023-04-18 15:54:00 37.5 Daly Lupe Rosado - External Respiratory rate 2023-04-18 15:54:00 15 /min Lupe Rosado - External Body height 2023-04-18 15:54:00 182.9 cm Juana Rosado - External Body weight 2023-04-18 15:54:00 121.564 kg Juana ey Seybold - External BMI 2023-04-18 15:54:00 36.35 kg/m2 Juana ey Seybold - External Systolic blood pressure 2023-04-09 18:39:00 160 mm[Hg] Lupe Seybo ld - External Diastolic blood pressure 2023-04-09 18:39:00 110 mm[Hg] Lupe Seybo ld - External Heart rate 2023-04-09 18:39:00 62 /min Kelse y Seybold - External Body temperature 2023-04-09 18:39:00 36.5 Daly Lupe Seybold - External Respiratory rate 2023-04-09 18:39:00 20 /min Lupe Seybold - External Body height 2023-04-09 18:39:00 182.9 cm Juana ey Seybold - External Body weight 2023-04-09 18:39:00 119.296 kg Juana ey Seybold - External BMI 2023-04-09 18:39:00 35.67 kg/m2 Juana ey Seybold - External Oxygen saturation in Arterial blood by Pulse oximetry 2023-04-09 18:39:00 100 /min Lupe Seybo ld - External Systolic blood pressure 2023-03-23 15:04:00 162 mm[Hg] Lupe Seybo ld - External Diastolic blood pressure 2023-03-23 15:04:00 100 mm[Hg] Lupe Seybo ld - External Heart rate 2023-03-23 15:04:00 80 /min Yonisse y Seybold - External Body temperature 2023-03-23 15:04:00 37 Daly Lupe Seybold - External Respiratory rate 2023-03-23 15:04:00 18 /min Lupe Seybold - External Body height 2023-03-23 15:04:00 182.9 cm Juana ey Seybold - External Body weight 2023-03-23 15:04:00 119.75 kg Juana ey Seybold - External BMI 2023-03-23 15:04:00 35.80 kg/m2 Juana ey Seybold - External Systolic blood pressure 2023-01-16 18:38:00 122 mm[Hg] Lupe Seybo ld - External Diastolic blood pressure 2023-01-16 18:38:00 80 mm[Hg] Lupe Seybo ld - External Heart rate 2023-01-16 18:38:00 82 /min Kelse y Seybold - External Body temperature 2023-01-16 18:38:00 36.39 Daly Lupe Seybold - External Respiratory rate 2023-01-16 18:38:00 20 /min Lupe Seybold - External Body height 2023-01-16 18:38:00 182.9 cm Juana ey Seybold - External Body weight 2023-01-16 18:38:00 119.205 kg Juana ey Seybold - External BMI 2023-01-16 18:38:00 35.64 kg/m2 Juana ey Seybold - External Oxygen saturation in Arterial blood by Pulse oximetry 2023-01-16 18:38:00 99 /min Lupe Seybo ld - External Systolic blood pressure 2022-11-28 20:40:00 174 mm[Hg] Lupe Seybo ld - External Diastolic blood pressure 2022-11-28 20:40:00 100 mm[Hg] Lupe Seybo ld - External Heart rate 2022-11-28 20:36:00 98 /min Yonisse y Seybold - External Body temperature 2022-11-28 20:36:00 37.56 Daly Lupe Seybold - External Respiratory rate 2022-11-28 20:36:00 20 /min Lupe Seybold - External Body height 2022-11-28 20:36:00 182.9 cm Juana ey Seybold - External Body weight 2022-11-28 20:36:00 118.207 kg Juana ey Seybold - External BMI 2022-11-28 20:36:00 35.34 kg/m2 Juana ey Seybold - External Oxygen saturation in Arterial blood by Pulse oximetry 2022-11-28 20:36:00 99 /min Lupe Seybo ld - External Systolic blood pressure 2022-10-13 18:11:00 182 mm[Hg] Lupe Seybo ld - External Diastolic blood pressure 2022-10-13 18:11:00 121 mm[Hg] Lupe Seybo ld - External Heart rate 2022-10-13 16:44:00 85 /min Kelse y Seybold - External Body temperature 2022-10-13 16:44:00 36.67 Daly Lupe Seybold - External Respiratory rate 2022-10-13 16:44:00 15 /min Lupe Seybold - External Body height 2022-10-13 16:44:00 182.9 cm Juana ey Seybold - External Body weight 2022-10-13 16:44:00 119.296 kg Juana ey Seybold - External BMI 2022-10-13 16:44:00 35.67 kg/m2 Juana ey Seybold - External Systolic blood pressure 2022-09-05 14:11:00 180 mm[Hg] Lupe Seybo ld - External Diastolic blood pressure 2022-09-05 14:11:00 124 mm[Hg] Lupe Seybo ld - External Heart rate 2022-09-05 14:11:00 97 /min Annelise y Seybold - External Body temperature 2022-09-05 14:11:00 36.39 Daly Lupe Seybold - External Respiratory rate 2022-09-05 14:11:00 16 /min Lupe Seybold - External Body height 2022-09-05 14:11:00 182.9 cm Juana ey Seybold - External Body weight 2022-09-05 14:11:00 122.925 kg Juana ey Seybold - External BMI 2022-09-05 14:11:00 36.75 kg/m2 Juana ey Seybold - External Systolic blood pressure 2020-12-04 22:21:00 168 mm[Hg] [facility] Diastolic blood pressure 2020-12-04 22:21:00 107 mm[Hg] [facility] Heart rate 2020-12-04 22:14:00 87 /min [facility] Body temperature 2020-12-04 22:14:00 36.72 Daly [facility] Respiratory rate 2020-12-04 22:14:00 22 /min [facility] Body height 2020-12-04 22:14:00 182.9 cm [facility] Body weight 2020-12-04 22:14:00 145.746 kg [facility] BMI 2020-12-04 22:14:00 43.58 kg/m2 [facility] Oxygen saturation in Arterial blood by Pulse oximetry 2020-12-04 22:14:00 99 /min [facility] Procedures Procedure Date / Time Performed Performing Clinicia n Source LUMBAR SPINE 2 VIEWS [facility] - [facility] 2023-03-23 16:02:05 Franci Dan - External CERVICAL SPINE - 2 VIEW 2023-03-23 16:01:26 Franci Dan - External ASSIGNMENT OF BENEFITS 2020-12-04 22:07:06 Docto r Unassigned, [place] [facility] Encounters Start Date/Time End Date/Time Encounter Type Admission Type Attending Clinicians Care Facility Care Department Encounter ID Source 2024-02-28 00:00:00 2024-02-28 00:00:00 Outpatient JORDAN SULLIVAN [id number] Lupe tran 2023-09-21 00:00:00 2023-09-21 00:00:00 Outpatient JORDAN SULLIVAN [id number] Lupe [facility] 2023-07-19 09:00:00 2023-07-19 09:00:00 Outpatient JORDAN SULLIVAN [id number] Lupe Rosado 2023-07-09 08:45:00 2023-07-09 08:45:00 Outpatient ROCHELLE MINAYA [id number] Lupe Rosado 2023-06-15 00:00:00 2023-06-15 00:00:00 Outpatient ROCHELLE MINAYA [id number] Lupe Setran 2023-06-15 00:00:00 2023-06-15 00:00:00 Outpatient ROCHELLE MINAYA [id number] Lupe Rosado 2023-06-15 00:00:00 2023-06-15 00:00:00 Outpatient ROCHELLE MINAYA [id number] Lupe Rosado 2023-06-15 00:00:00 2023-06-15 00:00:00 Outpatient ROCHELLE MINAYA [id number] [facility] 2023-05-31 10:00:00 2023-05-31 10:00:[address], TECH LUPE HOUSER [id number] Lu[facility] 2023-05-31 00:00:00 2023-05-31 00:00:00 Outpatient MD LUPE VELEZ [id number] Lu[facility] 2023-05-29 00:00:00 2023-05-29 00:00:00 Outpatient JORDAN SULLIVAN [id number] Lu[facility] 2023-05-28 19:42:46 2023-05-28 19:42:46 Outpatient CRIS CHACHO [facility] [id number] [facility] 2023-05-28 00:00:00 2023-05-28 00:00:00 Outpatient ANNABELLA, CHILO HOUSER [id number] Lupe [facility] 2023-05-15 00:00:00 2023-05-15 00:00:00 Outpatient MD LUPE VELEZ [id number] Lu[facility] 2023-05-08 00:00:00 2023-05-08 00:00:00 Outpatient LUPE HOUSER [id number] Lupe [facility] 2023-05-07 16:40:00 2023-05-07 16:40:00 Outpatient ANNABELLA, CHILOYOVANI HOUSER [id number] Lupe [facility] 2023-05-05 00:00:00 2023-05-05 00:00:00 Outpatient JORDAN SULLIVAN [id number] Lu[facility] 2023-05-03 00:00:00 2023-05-03 00:00:00 Out[facility] MD [id number] [facility] 00:00:00 2023-04-27 00:00:00 Outpatient JORDAN SULLIVAN [id number] Lupe tran 2023-04-25 11:30:00 2023-04-25 11:30:00 Outpatient DAVID SNEED [id number] Lu[facility] 2023-04-19 00:00:00 2023-04-19 00:00:00 Outpatient REI, ROCHELLE LUPE HOUSER [id number] [facility] 2023-04-18 10:30:00 2023-04-18 10:30:00 Outpatient PREZAS, JORDAN LUPE HOUSER [id number] [facility] 2023-04-18 00:00:00 2023-04-18 00:00:00 Outpatient REI, ROCHELLE LUPE HOUSER [id number] [facility] 2023-04-12 00:00:00 2023-04-12 00:00:00 Outpatient PREZAS, JORDAN LUPE HOUSER [id number] [facility] 2023-04-12 00:00:00 2023-04-12 00:00:00 Outpatient PREZAS, JORDAN LUPE HOUSER [id number] [facility] 2023-04-11 13:15:00 2023-04-11 13:15:00 Outpatient NARENDAVID LUPE HOUSER [id number] [facility] 2023-04-11 00:00:00 2023-04-11 00:00:00 Outpatient REI, ROCHELLERita HOUSER [id number] [facility] 2023-04-10 13:15:00 2023-04-10 13:15:00 Outpatient ATKINS, FRANCI HOUSER [id number] [facility] 2023-04-10 08:35:00 2023-04-10 08:35:00 Outpatient LAB90 LUPE HOUSER [id number] [facility] 2023-04-09 13:30:00 2023-04-09 13:30:00 Outpatient REI, ROCHELLERita HOUSER [id number] Lupe Seybold 2023-03-30 15:15:00 2023-03-30 15:15:00 Outpatient ATPRASHANT, FRANCI HOUSER [id number] [facility] 2023-03-23 10:45:00 2023-03-23 10:45:00 Outpatient LUPE HOUSER [id number] [facility] 2023-03-23 10:40:00 2023-03-23 10:40:00 Outpatient LUPE LUPE [id number] [facility] 2023-03-23 10:00:00 2023-03-23 10:00:00 Outpatient FRANCI DAN LUPE HOUSER [id number] [facility] 2023-03-20 00:00:00 2023-03-20 00:00:00 Outpatient PREZAS, JORDAN LUPE HOUSER [id number] [facility] 2023-03-20 00:00:00 2023-03-20 00:00:00 Outpatient PREZAS, JORDAN LUPE LUPE [id number] [facility] 2023-03-20 00:00:00 2023-03-20 00:00:00 Outpatient PREZAS, JORDAN LUPE LUPE [id number] [facility] 2023-03-13 00:00:00 2023-03-13 00:00:00 Outpatient PREZAS, JORDAN LUPE HOUSER [id number] [facility] 2023-03-12 08:40:00 2023-03-12 08:40:00 Outpatient LAB90 LUPE HOUSER [id number] [facility] 2023-03-12 00:00:00 2023-03-12 00:00:00 Outpatient PREZAS, JORDAN LUPE HOUSER [id number] [facility] 2023-03-09 09:55:00 2023-03-09 09:55:00 Outpatient LAB90 LUPE HOUSER [id number] [facility] 2023-03-07 10:30:00 2023-03-07 10:30:00 Outpatient LAB90 LUPE HOUSER [id number] [facility] 2023-02-12 00:00:00 2023-02-12 00:00:00 Outpatient PREZAS, JORDAN LUPE HOUSER [id number] Lupe Seybold 2023-02-08 08:45:00 2023-02-08 08:45:00 Outpatient LUPE HOUSER [id number] Lupe Seybold 2023-02-06 00:00:00 2023-02-06 00:00:00 Outpatient PREZAS, JORDAN LUPE HOUSER [id number] Lupe Seybold 2023-02-06 00:00:00 2023-02-06 00:00:00 Outpatient PREZAS, JORDAN HOUSER LUPE [id number] [facility] 2023-02-06 00:00:00 2023-02-06 00:00:00 Outpatient PREZAS, JORDAN HOUSER LUPE [id number] [facility] 2023-01-31 09:50:00 2023-01-31 09:50:00 Outpatient LAB90 LUPE LUPE [id number] [facility] 2023-01-31 00:00:00 2023-01-31 00:00:00 Outpatient PREZAS, JORDAN LUPE LUPE [id number] [facility] 2023-01-31 00:00:00 2023-01-31 00:00:00 Outpatient PREZAS, JORDAN LUPE HOUSER [id number] [facility] 2023-01-25 00:00:00 2023-01-25 00:00:00 Outpatient PREZAS, JORDAN HOUSER LUPE [id number] Lu[facility] 2023-01-18 00:00:00 2023-01-18 00:00:00 Outpatient PREZAS, JORDAN LUPE [facility] [id number] [facility] 2023-01-16 14:25:00 2023-01-16 14:25:00 Outpatient LAB90 LUPE LUPE [id number] [facility] 2023-01-16 10:00:00 2023-01-16 10:00:00 Outpatient PREZAS, JORDAN LUPE HOUSER [id number] [facility] 2023-01-16 00:00:00 2023-01-16 00:00:00 Outpatient PREZAS, JORDAN LUPE HOUSER [id number] [facility] 2023-01-08 00:00:00 2023-01-08 00:00:00 Outpatient PREZAS, JORDAN LUPE HOUSER [id number] [facility] 2022-12-28 11:30:00 2022-12-28 11:30:00 Outpatient DARRELROE Davis [id number] Lu[facility] 2022-12-28 00:00:00 2022-12-28 00:00:00 Outpatient PREZAS, JORDAN HOUSER LUPE [id number] Lu[facility] 2022-12-28 00:00:00 2022-12-28 00:00:00 Outpatient PREZAS, OJRDAN HOUSER LUPE [id number] [facility] 2022-12-28 00:00:00 2022-12-28 00:00:00 Outpatient PREZAS, JORDAN HOUSER LUPE [id number] Lu[facility] 2022-12-28 00:00:00 2022-12-28 00:00:00 Outpatient PREZAS, JORDAN HOUSER LUPE [id number] [facility] 2022-12-28 00:00:00 2022-12-28 00:00:00 Outpatient PREZAS, JORDAN LUPE HOUSER [id number] [facility] 2022-12-26 15:30:00 2022-12-26 15:30:00 Outpatient PREZAS, JORDAN GARDNERBELGICA HOUSER [id number] [facility] 2022-11-29 14:15:00 2022-11-29 14:15:00 Outpatient ALIOTA, TEE LUPE HOUSER [id number] [facility] 2022-11-28 15:30:00 2022-11-28 15:30:00 Outpatient PREZAS, JORDAN [facility] [id number] [facility]:00 2022-11-28 00:00:00 Outpatient LUPE HOUSER [id number] [facility] 2022-11-28 00:00:00 2022-11-28 00:00:00 Outpatient PREZAS, JORDAN LUPE HOUSER [id number] [facility] 2022-11-15 14:30:00 2022-11-15 14:30:00 Outpatient PREZAS, JORDAN LUPE HOUSER [id number] [facility] 2022-11-14 00:00:00 2022-11-14 00:00:00 Outpatient PREZAS, JORDAN LUPE HOUSER [id number] [facility] 2022-11-14 00:00:00 2022-11-14 00:00:00 Outpatient PREZAS, JORDAN LUPE HOUSER [id number] [facility] 2022-10-31 00:00:00 2022-10-31 00:00:00 Outpatient PREZAS, JORDAN LUPE HOUSER [id number] [facility] 2022-10-31 00:00:00 2022-10-31 00:00:00 Outpatient PREZAS, JORDAN LUPE HOUSER [id number] [facility] 2022-10-30 00:00:00 2022-10-30 00:00:00 Outpatient TING, JAKOB LUPE HOUSER [id number] [facility] 2022-10-25 08:00:00 2022-10-25 08:00:00 Outpatient HUNDL, MACIEJ HOUSER [id number] [facility] 2022-10-19 00:00:00 2022-10-19 00:00:00 Outpatient PREZAS, JORDAN LUPE HOUSER [id number] [facility] 2022-10-19 00:00:00 2022-10-19 00:00:00 Outpatient HUNDL, MACIEJ HOUSER [id number] [facility] 2022-10-18 00:00:00 2022-10-18 00:00:00 Outpatient HUNDL, MACIEJ HOUSER [id number] [facility] 2022-10-18 00:00:00 2022-10-18 00:00:00 Outpatient HUNDL, MACIEJ HOUSER [id number] Lupe [facility] 2022-10-13 12:20:00 2022-10-13 12:20:00 Outpatient LABDilip HOUSER [id number] Lupe [facility] 2022-10-13 11:45:00 2022-10-13 11:45:00 Outpatient PREZAS, JORDAN LUPE HOUSER [id number] Lupe Sey[facility] 2022-10-12 08:00:00 2022-10-12 08:00:00 Outpatient PREZAS, JORDAN HOUSER [id number] Lupe Sey[facility] 2022-10-05 00:00:00 2022-10-05 00:00:00 Outpatient MACIEJ MORENO LUPE [id number] Lupe Rosado 2022-09-21 09:00:00 2022-09-21 09:00:00 Outpatient AMCIEJ MORENO LUPE [id number] [facility] Rosado 2022-09-14 09:00:00 2022-09-14 09:00:00 Outpatient DAVID SNEED LUPE HOUSER [id number] [facility] 2022-09-14 00:00:00 2022-09-14 00:00:00 Outpatient JORDAN SULLIVAN LUPE HOUSER [id number] [facility] 2022-09-12 09:00:00 2022-09-12 09:00:00 Outpatient DAVID SNEED LUPE HOUSER [id number] Lupe Rosado 2022-09-12 00:00:00 2022-09-12 00:00:00 Outpatient MACIEJ MORENO LUPE HOUSER [id number] Lupe Rosado 2022-09-05 09:00:00 2022-09-05 09:00:00 Outpatient LAB90 LUPEBELGICA HOUSER [id number] Lupe Rosado 2022-09-05 08:00:00 2022-09-05 08:00:00 Outpatient MACIEJ MORENO LUPE HOUSER [id number] Lupe Rosado 2022-08-28 00:00:00 2022-08-28 00:00:00 Outpatient JORDAN SULLIVAN LUPE HOUSER [id number] [facility]pe Rosado 2022 11:15:00 2022 11:15:00 Outpatient JONO ELDER LUPE HOUSER [id number] [facility] 2020-12-04 17:09:14 2020-12-04 18:03:41 Urgent Care Provider, [facility] Care Med Aguiar [facility] [id number] [facility] 2020-12-04 16:40:00 2020-12-04 16:40:00 Outpatient MED VILLALPANDO [facility] [id number] [facility] 2020-12-04 00:00:00 2020-12-04 00:00:00 Orders Only Doctor Unassigned, [place] [facility] [id number] [facility]
== END 2024-06-06 21:12 | disposition home or self-care (01) ==
LOC: ER 18:59
DX: N32.0 Bladder-neck obstruction (principal); Z98.890 Other specified postprocedural states; F17.210 Nicotine dependence, cigarettes, uncomplicated
CPT/HCPCS: 81001; 99283; Q0162

== ENCOUNTER 2024-06-12 18:17 | Emergency (ER) | payer OTHER ==
--- OUTSIDE RECORDS SUMMARY | 2024-06-12 18:21 | XMS REPORT | Continuity of Care Document ---
Author Name Unknown Address [address] [facility] [address] [place] [address] [facility] thconnect Address [address] [facility] 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, without long-term current use of insulin 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, without long-term current use of [...] active problems No known active problems Disease [facility] Allergies, Adverse Reactions, Alerts Allergy Name Allergy Type Status Severity Reaction(s) Onset Date Inactive Date Treating Clinician Comments Source Lisinopr il Propensi ty to adverse reaction s to drug Active Other 10-31 00:00: 00 Cough Lupe Rosado - Externa l NO KNOWN ALLERGIE S Drug Class Active [facility] Social History Social Habit Start Date Stop Date Quantity Comments Source Gender identity Juana Rosado - External Sexual orientation K wiliam Ashlee - External History of tobacco use Cigarette Smoker Lupe valdez - External Exposure to SARS-CoV-2 (event) Not sure [facility] Alcohol intake 2023-05-07 00:00:00 2023-05-07 00:00:00 [...] exposure 2020-12-04 00:00:00 2020-12-04 00:00:00 Never used [facility] Sex Assigned At 1965 00:00:00 1965 00:00:00 Lupe Rosado - External Smoking Status Start Date Stop Date Source Unknown if ever smoked [facility] Smokes tobacco daily 2023-04-18 00:00:00 Lupe Rosado - External Medications Ordered Medication Name Filled Medication Name Start Date Stop Date Current Medication? Ordering Clinician Indication Dosage Frequency Signature (SIG) Comments Components Source Losartan Potassium (COZAAR) 100 MG oral Tablet 2022-07 00:00: 00 Yes [id number] 100mg Take 1 tablet (100 mg total) by mouth daily. Lupe medrano [place] [facility] does not apply Misc 2022-07 00:00: 00 Yes [id number] 1 inch 18G needle with 5 cc [...] 2022-07 00:00: 00 08-18 05:59 :00 No [id number] 200mg Inject 200 mg into the muscle every 14 days. Lupe medrano Alprazolam 1 MG oral Tablet 2022-07 00:00: 00 Yes [id number] 1mg QD Take 1 tablet (1 mg total) by mouth nightly as needed for anxiety. Lupe medrano Carvedilol (Coreg) 12.5 MG oral Tablet 2022-07 00:00: 00 Yes [id number] 12.5mg Take 1 tablet (12.5 mg total) by mouth in the morning and 1 tablet (12.5 mg total) in the evening. Take with meals. Lupe medrano Testosteron e Cypionate (DEPO-TESTO STERONE) 200 mg/mL - Every 14 Days 2022-07 0-11 16:15: 00 08-29 17:14 :00 No [id number] 200mg Lupe medarno Tadalafil (Cialis) 5 MG oral Tablet 2022-07 0-09 00:00: 00 10-06 04:59 :00 No [id number] 5mg QD Take 1 tablet (5 mg [...] 808 00:00: 00 04-18 00:00 :00 No [id number] 1mg QD Take 1 tablet (1 mg total) by mouth nightly as needed for anxiety Lupe medrano Alprazolam 1 MG oral Tablet 01-16 00:00: 00 Yes [id number] 1mg QD Take 1 tablet (1 mg total) by mouth nightly as needed for anxiety Lupe medrano Amlodipine Besylate (Norvasc) 5 MG oral Tablet 01-16 00:00: 00 Yes [id number] 5mg Take 1 tablet (5 mg total) by mouth daily Lupe medrano Losartan Potassium (COZAAR) 100 MG oral Tablet 01-16 00:00: 00 Yes [id number] 100mg Take 1 tablet (100 mg total) by mouth daily Lupe medrano Metformin HCl 500 MG oral Tablet 01-16 00:00: 00 Yes [id number] 500mg Take 1 tablet (500 mg total) by mouth in the morning and 1 tablet (500 mg total) in the evening. Take with meals. Lupe medrano Carvedilol (Coreg) 6.25 MG oral Tablet 01-16 00:00: 00 04-18 00:00 :00 No [id number] 6.25mg Take 1 tablet (6.25 mg total) by mouth in the morning and 1 tablet (6.25 mg total) in the evening. Take with meals. Lupe medrano Doxycycline Hyclate 100 MG oral Capsule 6 00:00: 00 01-16 00:00 :00 No [id number] 100mg Take 1 capsule (100 mg total) by mouth 2 times daily for 7 days Lupe medrano Amlodipine Besylate (Norvasc) 5 MG oral Tablet 11-28 00:00: 00 Yes [id number] 5mg Take 1 tablet (5 mg total) by mouth daily Lupe medrano Carvedilol (Coreg) 6.25 MG oral Tablet 11-28 00:00: 00 Yes [id number] 6.25mg Take 1 tablet (6.25 mg total) by mouth in the morning and 1 tablet (6.25 mg total) in the evening. Take with meals. Lupe medrano Metformin HCl 500 MG oral Tablet 11-28 00:00: 00 Yes [id number] 500mg Take 1 tablet (500 mg total) by mouth in the morning and 1 tablet (500 mg total) in the evening. Take with meals. Lupe medrano Alprazolam 1 MG oral Tablet 11-28 00:00: 00 Yes [id number] 1mg QD Take 1 tablet (1 mg total) by mouth nightly as needed for anxiety Lupe medrano Losartan Potassium (COZAAR) 100 MG oral Tablet 11-28 00:00: 00 01-16 00:00 :00 No [id number] 100mg Take 1 tablet (100 mg total) by mouth daily Lupe medrano Doxycycline Hyclate 100 MG oral Capsule 11-14 00:00: 00 11-28 00:00 :00 No [id number] 100mg Take 1 capsule (100 mg total) by mouth 2 times daily for 7 days Lupe medrano Mupirocin (BACTROBAN) 2 % apply externally Ointment 10-19 00:00: 00 Yes [id number] Apply 1 applicatio n. topically 3 times daily Lupe medrano Metformin HCl 500 MG oral Tablet 10-19 00:00: 00 11-28 00:00 :00 No [id number] 1000mg Take 2 tablets (1,000 mg total) [...] 10-13 00:00: 00 11-28 00:00 :00 No [id number] 6.25mg Take 1 tablet (6.25 mg total) by mouth in the morning and 1 tablet (6.25 mg total) in the evening. Take with meals. Lupe medrano Alprazolam 1 MG oral Tablet 10-13 00:00: 00 11-28 00:00 :00 No [id number] 1mg QD Take 1 tablet (1 mg total) by mouth nightly as needed for anxiety Lupe medrano Lisinopril 40 MG oral Tablet 09-14 00:00: 00 Yes [id number] 40mg Take 1 tablet (40 mg total) by mouth daily Lupe medrano Amlodipine Besylate (Norvasc) 5 MG oral Tablet 09-14 00:00: 00 11-28 00:00 :00 No [id number] 5mg Take 1 tablet (5 mg total) by mouth daily Lupe medrano Mupirocin (BACTROBAN) 2 % apply externally Ointment 09-12 00:00: 00 Yes [id number] Apply 1 applicatio n. topically 3 times daily Lupe medrano Alprazolam 2 MG oral Tablet 09-05 08:14: 52 Yes 2mg QD Take 2 mg by mouth nightly as needed Lupe medrano Lisinopril 20 MG oral Tablet 09-05 00:00: 00 Yes [id number] 20mg Take 1 tablet (20 mg total) by mouth daily Lupe medrano Metformin HCl 500 MG oral Tablet 09-05 00:00: 00 Yes [id number] 500mg Take 1 tablet (500 mg total) by mouth in the morning and 1 tablet (500 mg total) in the evening. Take with meals. Lupe medrano Propranolol HCl 10 MG oral Tablet 09-05 00:00: 00 Yes [id number] 20mg Take 2 tablets (20 mg total) by mouth 3 times daily Lupe medrano Doxycycline Hyclate 100 MG oral Tablet 09-05 00:00: 00 Yes [id number] 100mg Take 1 tablet (100 mg total) by mouth 2 times daily Lupe medrano Mupirocin (BACTROBAN) 2 % apply externally Ointment 09-05 00:00: 00 Yes [id number] Apply 1 applicatio n. topically 3 times daily Lupe medrano Escitalopra m Oxalate (Lexapro) 10 MG oral Tablet 09-05 00:00: 00 09-05 00:00 :00 No [id number] 10mg Take 1 tablet (10 mg total) by mouth daily Lupe medrano sulfamethox azole-trime thoprim (BACTRIM DS) 800-160 mg per tablet 12-04 00:00: 00 12-12 04:59 :00 No [id number] 1{tbl} Take 1 tablet by mouth 2 (two) times daily for 7 days. [facility] Vital Signs Vital Name Observation Time Observation [...] Systolic blood pressure 2020-12-04 22:21:00 168 mm[Hg] [facility] Diastolic blood pressure 2020-12-04 22:21:00 107 mm[Hg] [facility] Heart rate 2020-12-04 22:14:00 87 /min [facility] Body temperature 2020-12-04 22:14:00 36.72 Daly [facility] Respiratory rate 2020-12-04 22:14:00 22 /min [facility] Body height 2020-12-04 22:14:00 182.9 cm [facility] Body weight 2020-12-04 22:14:00 145.746 kg [facility] BMI 2020-12-04 22:14:00 43.58 kg/m2 [facility] Oxygen saturation in Arterial blood by Pulse oximetry 2020-12-04 22:14:00 99 /min [facility] Procedures Procedure Date / Time Performed Performing Clinicia n Source LUMBAR SPINE 2 VIEWS [facility] - [facility]O 2023-03-23 16:02:05 Franci Dan - External CERVICAL SPINE - 2 VIEW 2023-03-23 16:01:26 Franci Dan - External ASSIGNMENT OF BENEFITS 2020-12-04 22:07:06 Docto r Unassigned, [employer] [facility] Encounters Start Date/Time End Date/Time Encounter Type Admission Type Attending Clinicians Care Facility Care Department Encounter ID Source 2024-02-28 00:00:00 2024-02-28 00:00:00 Outpatient JORDAN SULLIVAN [id number] [facility] 2023-09-21 00:00:00 2023-09-21 00:00:00 Outpatient JORDAN SULLIVAN [id number] [facility]pe [facility] 2023-07-19 09:00:00 2023-07-19 09:00:00 Outpatient JORDAN SULLIVAN [id number] Lupe Rosado 2023-07-09 08:45:00 2023-07-09 08:45:00 Outpatient ROCHELLE MINAYA [id number] Lupe Rosado 2023-06-15 00:00:00 2023-06-15 00:00:00 Outpatient ROCHELLE MINAYA [id number] Lupe Setran 2023-06-15 00:00:00 2023-06-15 00:00:00 Outpatient ROCHELLE MINAYA [id number] Lupe Rosado 2023-06-15 00:00:00 2023-06-15 00:00:00 Outpatient ROCHELLE MINAYA [id number] Lupe Rosado 2023-06-15 00:00:00 2023-06-15 00:00:00 Outpatient ROCHELLE MINAYA [id number] [facility] 2023-05-31 10:00:00 2023-05-31 10:00:[address], TECH LUPE HOUSER [id number] [facility] 2023-05-31 00:00:00 2023-05-31 00:00:00 Outpatient MD LUPE VELEZ [id number] [facility] 2023-05-29 00:00:00 2023-05-29 00:00:00 Outpatient JORDAN SULLIVAN [id number] [facility] 2023-05-28 19:42:46 2023-05-28 19:42:46 Outpatient CRIS [facility] [id number] [facility] 2023-05-28 00:00:00 2023-05-28 00:00:00 Outpatient ANNABELLA, CHILO HOUSER [id number] [facility] 2023-05-15 00:00:00 2023-05-15 00:00:00 Outpatient MD LUPE VELEZ [id number] [facility] 2023-05-08 00:00:00 2023-05-08 00:00:00 Outpatient LUPE HOUSER [id number] [facility] 2023-05-07 16:40:00 2023-05-07 16:40:00 Outpatient ANNABELLA, CHILOYOVANI HOUSER [id number] [facility] 2023-05-05 00:00:00 2023-05-05 00:00:00 Outpatient JORDAN SULLIVAN [id number] [facility] 2023-05-03 00:00:00 2023-05-03 00:00:00 Outpatient MD [facility]LEZ [id number] [facility]23-04-27 00:00:00 2023-04-27 00:00:00 Outpatient JORDAN SULLIVAN [id number] [facility] 2023-04-25 11:30:00 2023-04-25 11:30:00 Outpatient DAVID SNEED [id number] [facility] 2023-04-19 00:00:00 2023-04-19 00:00:00 Outpatient REI, ROCHELLE LUPE HOUSER [id number] [facility] 2023-04-18 10:30:00 2023-04-18 10:30:00 Outpatient PREZAS, JORDAN LUPE HOUSER [id number] [facility] 2023-04-18 00:00:00 2023-04-18 00:00:00 Outpatient REI, ROCHELLE LUPE HOUSER [id number] [facility] 2023-04-12 00:00:00 2023-04-12 00:00:00 Outpatient PREZAS, JORDAN LUPE HOUSER [id number] [facility] 2023-04-12 00:00:00 2023-04-12 00:00:00 Outpatient PREZAS, JORDAN LUPE HOUSER [id number] [facility] 2023-04-11 13:15:00 2023-04-11 13:15:00 Outpatient NARENDAVID LUPE HOUSER [id number] [facility] 2023-04-11 00:00:00 2023-04-11 00:00:00 Outpatient REI, ROCHELLERita HOUSER [id number] [facility] 2023-04-10 13:15:00 2023-04-10 13:15:00 Outpatient ATKINS, FRANCI HOUSER [id number] [facility] 2023-04-10 08:35:00 2023-04-10 08:35:00 Outpatient LAB90 LUPE HOUSER [id number] [facility] 2023-04-09 13:30:00 2023-04-09 13:30:00 Outpatient REI, ROCHELLERita HOUSER [id number] Lupe Seybold 2023-03-30 15:15:00 2023-03-30 15:15:00 Outpatient ATPRASHANT, FRANCI HOUSER [id number] [facility] 2023-03-23 10:45:00 2023-03-23 10:45:00 Outpatient LUPE HOUSER [id number] [facility] 2023-03-23 10:40:00 2023-03-23 10:40:00 Outpatient LUPE LUPE [id number] [facility] 2023-03-23 10:00:00 2023-03-23 10:00:00 Outpatient FRANCI DAN LUPE HOUSER [id number] [facility] 2023-03-20 00:00:00 2023-03-20 00:00:00 Outpatient PREZAS, JORDAN LUPE HOUSER [id number] [facility] 2023-03-20 00:00:00 2023-03-20 00:00:00 Outpatient PREZAS, JORDAN LUPE LUPE [id number] [facility] 2023-03-20 00:00:00 2023-03-20 00:00:00 Outpatient PREZAS, JORDAN LUPE LUPE [id number] [facility] 2023-03-13 00:00:00 2023-03-13 00:00:00 Outpatient PREZAS, JORDAN LUPE HOUSER [id number] [facility] 2023-03-12 08:40:00 2023-03-12 08:40:00 Outpatient LAB90 LUPE HOUSER [id number] [facility] 2023-03-12 00:00:00 2023-03-12 00:00:00 Outpatient PREZAS, JORDAN LUPE HOUSER [id number] [facility] 2023-03-09 09:55:00 2023-03-09 09:55:00 Outpatient LAB90 LUPE HOUSER [id number] [facility] 2023-03-07 10:30:00 2023-03-07 10:30:00 Outpatient LAB90 LUPE HOUSER [id number] [facility] 2023-02-12 00:00:00 2023-02-12 00:00:00 Outpatient PREZAS, JORDAN LUPE HOUSER [id number] Lupe Seybold 2023-02-08 08:45:00 2023-02-08 08:45:00 Outpatient LUPE HOUSER [id number] Lupe Seybold 2023-02-06 00:00:00 2023-02-06 00:00:00 Outpatient PREZAS, JORDAN LUPE HOUSER [id number] Lupe Seybold 2023-02-06 00:00:00 2023-02-06 00:00:00 Outpatient PREZAS, JORDAN HOUSER LUPE [id number] [facility] 2023-02-06 00:00:00 2023-02-06 00:00:00 Outpatient PREZAS, JORDAN HOUSER LUPE [id number] [facility] 2023-01-31 09:50:00 2023-01-31 09:50:00 Outpatient LAB90 LUPE LUPE [id number] [facility] 2023-01-31 00:00:00 2023-01-31 00:00:00 Outpatient PREZAS, JORDAN LUPE LUPE [id number] [facility] 2023-01-31 00:00:00 2023-01-31 00:00:00 Outpatient PREZAS, JORDAN LUPE HOUSER [id number] [facility] 2023-01-25 00:00:00 2023-01-25 00:00:00 Outpatient PREZAS, JORDAN HOUSER LUPE [id number] [facility] 2023-01-18 00:00:00 2023-01-18 00:00:00 Outpatient PREZAS, JORDAN LUPE LUPE [id number] [facility] 2023-01-16 14:25:00 2023-01-16 14:25:00 Outpatient LAB90 LUPE LUPE [id number] [facility] 2023-01-16 10:00:00 2023-01-16 10:00:00 Outpatient PREZAS, JORDAN LUPE HOUSER [id number] [facility] 2023-01-16 00:00:00 2023-01-16 00:00:00 Outpatient PREZAS, JORDAN LUPE HOUSER [id number] [facility] 2023-01-08 00:00:00 2023-01-08 00:00:00 Outpatient PREZAS, JORDAN LUPE HOUSER [id number] [facility] 2022-12-28 11:30:00 2022-12-28 11:30:00 Outpatient DARRELROE Davis [id number] [facility] 2022-12-28 00:00:00 2022-12-28 00:00:00 Outpatient PREZAS, JORDAN HOUSER LUPE [id number] [facility] 2022-12-28 00:00:00 2022-12-28 00:00:00 Outpatient PREZAS, JORDAN HOUSER LUPE [id number] [facility] 2022-12-28 00:00:00 2022-12-28 00:00:00 Outpatient PREZAS, JORDAN HOUSER LUPE [id number] [facility] 2022-12-28 00:00:00 2022-12-28 00:00:00 Outpatient PREZAS, JORDAN HOUSER LUPE [id number] [facility] 2022-12-28 00:00:00 2022-12-28 00:00:00 Outpatient PREZAS, JORDAN LUPE HOUSER [id number] [facility] 2022-12-26 15:30:00 2022-12-26 15:30:00 Outpatient PREZAS, JORDAN GARDNERBELGICA HOUSER [id number] [facility] 2022-11-29 14:15:00 2022-11-29 14:15:00 Outpatient ALIOTA, TEE LUPE HOUSER [id number] [facility] 2022-11-28 15:30:00 2022-11-28 15:30:00 Outpatient PREZAS, JORDAN [facility]OUS[facility] [id number] [facility] 00:00:00 2022-11-28 00:00:00 Outpatient LUPE HOUSER [id number] [facility] 2022-11-28 00:00:00 2022-11-28 00:00:00 Outpatient PREZAS, JORDAN LUPE HOUSER [id number] [facility] 2022-11-15 14:30:00 2022-11-15 14:30:00 Outpatient PREZAS, JORDAN LUPE HOUSER [id number] [facility] 2022-11-14 00:00:00 2022-11-14 00:00:00 Outpatient PREZAS, JORDAN LUPE HOUSER [id number] [facility] 2022-11-14 00:00:00 2022-11-14 00:00:00 Outpatient PREZAS, JORDAN LUPE HOUSER [id number] [facility] 2022-10-31 00:00:00 2022-10-31 00:00:00 Outpatient PREZAS, JORDAN LUPE HOUSER [id number] Lupe [facility] 2022-10-31 00:00:00 2022-10-31 00:00:00 Outpatient PREZAS, JORDAN LUPE HOUSER [id number] [facility] 2022-10-30 00:00:00 2022-10-30 00:00:00 Outpatient TING, JAKOB LUPE HOUSER [id number] [facility] 2022-10-25 08:00:00 2022-10-25 08:00:00 Outpatient HUNDL, MACIEJ HOUSER [id number] [facility] 2022-10-19 00:00:00 2022-10-19 00:00:00 Outpatient PREZAS, JORDAN LUPE HOUSER [id number] [facility] 2022-10-19 00:00:00 2022-10-19 00:00:00 Outpatient HUNDL, MACIEJ HOUSER [id number] [facility] 2022-10-18 00:00:00 2022-10-18 00:00:00 Outpatient HUNDL, MACIEJ HOUSER [id number] [facility] 2022-10-18 00:00:00 2022-10-18 00:00:00 Outpatient HUNDL, MACIEJ HOUSER [id number] Lupe Seybold 2022-10-13 12:20:00 2022-10-13 12:20:00 Outpatient LABDilip HOUSER [id number] Lupe [facility] 2022-10-13 11:45:00 2022-10-13 11:45:00 Outpatient PREZAS, JORDAN LUPE HOUSER [id number] Lupe Seybold 2022-10-12 08:00:00 2022-10-12 08:00:00 Outpatient PREZAS, JORDAN HOUSER [id number] [facility] Sey[facility] 2022-10-05 00:00:00 2022-10-05 00:00:00 Outpatient MACIEJ MORENO LUPE [id number] [facility] Rosado 2022-09-21 09:00:00 2022-09-21 09:00:00 Outpatient MACEIJ MORENO LUPE [id number] [facility] 2022-09-14 09:00:00 2022-09-14 09:00:00 Outpatient DAVID SNEED LUPE HOUSER [id number] [facility] 2022-09-14 00:00:00 2022-09-14 00:00:00 Outpatient JORDAN SULLIVAN LUPE HOUSER [id number] [facility] 2022-09-12 09:00:00 2022-09-12 09:00:00 Outpatient DAVID SNEED LUPE HOUSER [id number] [facility] 2022-09-12 00:00:00 2022-09-12 00:00:00 Outpatient MACIEJ MORENO [facility] [id number] [facility] 2022-09-05 09:00:00 2022-09-05 09:00:00 Outpatient LAB90 [facility] [id number] Lupe Rosado 2022-09-05 08:00:00 2022-09-05 08:00:00 Outpatient MACIEJ MORENO [facility] [id number] [facility] Rosado 2022-08-28 00:00:00 2022-08-28 00:00:00 Outpatient JORDAN SULLIVAN [facility] [id number] [facility] Rosado 2022 11:15:00 2022 11:15:00 Outpatient JONO ELDER [facility] [id number] [facility] 2020-12-04 17:09:14 2020-12-04 18:03:41 Urgent Care Provider, [facility] Med Aguiar [facility] [id number] [facility] 2020-12-04 16:40:00 2020-12-04 16:40:00 Outpatient MED VILLALPANDO [facility] [id number] [facility] 2020-12-04 00:00:00 2020-12-04 00:00:00 Orders Only Doctor Unassigned, [place] [facility] [id number] [facility]
--- NOTE | 2024-06-12 18:40 | EDPHYS ---
Physician Documentation [facility] Name: Jorge Estrada Age: 58 yrs Sex: Male : 1965 Arrival Date: 06/12/2024 Time: 18:17 Bed 13 Private MD: ED Physician Casey Kennedy HPI: 06/12 18:40 This 58 yrs old Male presents to ER via Unassigned with complaints of ec2 CATHETER REMOVAL. 18:40 Patient arrives today for evaluation of his Gregory catheter. States that his Gregory ec2 catheter has been bothering him and he would like this removed. Patient recently had a place recently and was told it was anesthesia related. Patient reports he is otherwise not having any other issues.. Historical: - Allergies: 18:52 No Known Drug Allergies; ph - PMHx: 18:52 Anxiety; diabetes mellitus; Hypertensive disorder; ph - PSHx: 18:52 hernia repair; ph - Immunization history:: Adult Immunizations unknown. - Infectious Disease History:: Denies. - Social history:: Smoking status: unknown. ROS: 18:40 Constitutional: as per hpi ec2 Exam: 18:40 Constitutional: GEN: NAD Head: atraumatic Eyes: EOMI Ears: External ears are ec2 normal. CV: regular rate LUNGS: no respiratory distress ABD: non-distended SKIN: no evidence of rashes MSK: no evidence of trauma Vital Signs: 18:51 BP 138 / 78; Pulse 72; Resp 18; Temp 97.9; Pulse Ox 99% ; ph MDM: 18:21 Medical Screening Exam initiated ec2 18:40 Data reviewed: vital signs, nurses notes. ED course: Patient arrives today with ec2 indwelling Gregory catheter. Examination is unrevealing. I discussed possibly removing the Gregory catheter, I discussed that this possible that we may need to replace it tonight or in the morning with recurrent urinary retention and after further deliberation, patient indicated that he would not want undergo or replacement and would rather leave it in. I will discharge him and have follow-up with Dr. Vasquez, urology. Patient agreeable. Administered Medications: No medications were administered Disposition Summary: 06/12/24 18:39 Discharge Ordered Notes: Location: Home ec2 Condition: Stable ec2 Diagnosis - Urinary Retention ec2 Followup: ec2 - With: Kishan Vasquez MD - When: - Reason: Recheck today's complaints Discharge Instructions: - Discharge Summary Sheet ec2 - Acute Urinary Retention, Male, [id number] ec2 Forms: - Medication Reconciliation Form ec2 - Antibiotic Education ec2 - Prescription Opioid Use ec2 - Patient Portal Instructions ec2 - Leadership Thank You Letter ec2 Signatures: Bria Stroud RN RN Casey Kennedy MD MD ec2
--- NOTE | 2024-06-12 19:05 | ER ---
Nurse's Notes [facility] Name: Jorge Estrada Age: 58 yrs Sex: Male : 1965 Arrival Date: 06/12/2024 Time: 18:17 Bed 13 Private MD: Diagnosis: Urinary Retention Presentation: 06/12 18:51 Chief complaint: Patient states: Gregory is uncomfortable and wants it removed. ph Coronavirus screen: Vaccine status: Patient reports receiving the 2nd dose of the covid vaccine. Ebola Screen: No symptoms or risks identified at this time. Initial Sepsis Screen: Does the patient meet any 2 criteria? No. Patient's initial sepsis screen is negative. Does the patient have a suspected source of infection? No. Patient's initial sepsis screen is negative. Risk Assessment: Do you want to hurt yourself or someone else? Patient reports no desire to harm self or others. Onset of symptoms was June 12, 2024. 18:51 Method Of Arrival: Ambulatory ph 18:51 Acuity: TALISHA 4 ph Triage Assessment: 18:52 General: Appears in no apparent distress. Behavior is calm, cooperative. Pain: ph Complains of pain in pelvis. : Gregory in place to gravity drainage no stat lock. Historical: - Allergies: 18:52 No Known Drug Allergies; ph - PMHx: 18:52 Anxiety; diabetes mellitus; Hypertensive disorder; ph - PSHx: 18:52 hernia repair; ph - Immunization history:: Adult Immunizations unknown. - Infectious Disease History:: Denies. - Social history:: Smoking status: unknown. Screenin:52 [facility] ED Fall Risk Assessment (Adult) History of falling in the last 3 months, ph including since admission No falls in past 3 months (0 pts) Confusion or Disorientation No (0 pts) Intoxicated or Sedated No (0 pts) Impaired Gait No (0 pts) Mobility Assist Device Used No (0 pt) Altered Elimination No (0 pt) Score/Fall Risk Level 0 - 2 = Low Risk Oriented to surroundings, Maintained a safe environment. Abuse screen: Denies threats or abuse. Denies injuries from another. Nutritional screening: No deficits noted. Tuberculosis screening: No symptoms or risk factors identified. Assessment: 18:53 General: SEE TRIAGE ASSESSMENT. ph Vital Signs: 18:51 BP 138 / 78; Pulse 72; Resp 18; Temp 97.9; Pulse Ox 99% ; ph ED Course: 18:21 Patient arrived in ED. sj2 18:21 Casey Kennedy MD is Attending Physician. ec2 18:39 Kishan Vasquez MD is Referral Physician. ec2 18:52 Triage completed. ph 18:52 Arm band placed on Patient placed in an exam room. ph 18:53 Patient has correct armband on for positive identification. Call light in reach. Side ph rails up X 1. Door closed. Noise minimized. 18:53 No provider procedures requiring assistance completed. Patient did not have IV access ph during this emergency room visit. Administered Medications: No medications were administered Medication: 18:53 VIS not applicable for this client. ph Outcome: 18:39 Discharge ordered by . ec2 19:04 Discharged to home ambulatory, ph 19:04 Condition: good 19:04 Discharge instructions given to patient, Instructed on discharge instructions, follow up and referral plans. Demonstrated understanding of instructions, follow-up care, 19:05 Patient left the ED. ph Signatures: Bria Stroud RN RN ph Casey Kennedy MD MD ec2 [facility] 2
[2024-06-12 19:09] VITALS: BP 138/78; TEMP 97.9; O2SAT 99
== END 2024-06-12 19:05 | disposition home or self-care (01) ==
LOC: ER 18:17
DX: R33.9 Retention of urine, unspecified (principal); F41.9 Anxiety disorder, unspecified; E11.9 Type 2 diabetes mellitus without complications; I10 Essential (primary) hypertension; Z46.6 Encounter for fitting and adjustment of urinary device
CPT/HCPCS: 99282

== ENCOUNTER 2024-06-14 18:26 | Emergency (ER) | payer OTHER ==
--- OUTSIDE RECORDS SUMMARY | 2024-06-14 18:31 | XMS REPORT | Continuity of Care Document ---
Author Name Unknown Address [address] [facility] [address] [place] [address] [facility] thconnect Address [address] [facility] 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 ON STAND 9 [id number] 2022 00:00:00 [employer] [id number] 2022 00:00:00 Problems Condition Name Condition Details [...] in adult Disease Active 2022-0718 00:00: 00 Lpue Priceold - Externa l Asymptomat ic varicose [...] Externa l Type 2 diabetes mellitus with breaker up y disorder, without long-term current use of insulin Type 2 diabetes mellitus with breaker up y disorder, without long-term current use of [...] active problems No known active problems Disease [facility] Allergies, Adverse Reactions, Alerts Allergy Name Allergy Type Status Severity Reaction(s) Onset Date Inactive Date Treating Clinician Comments Source Lisinopr il Propensi ty to adverse reaction s to drug Active Other 10-31 00:00: 00 Cough Lupe Rosado - Externa l NO KNOWN ALLERGIE S Drug Class Active [facility] Social History Social Habit Start Date Stop Date Quantity Comments Source Gender identity Juana Rosado - External Sexual orientation K wiliam Ashlee - External History of tobacco use Cigarette Smoker Lupe valdez - External Exposure to SARS-CoV-2 (event) Not sure [facility] Alcohol intake 2023-05-07 00:00:00 2023-05-07 00:00:00 [...] exposure 2020-12-04 00:00:00 2020-12-04 00:00:[address] [facility] Sex Assigned At 1965 00:00:00 1965 00:00:00 Lupe Rosado - External Smoking Status Start Date Stop Date Source Unknown if ever smoked [facility] Smokes tobacco daily 2023-04-18 00:00:00 Lupe Rosado - External Medications Ordered Medication Name Filled Medication Name Start Date Stop Date Current Medication? Ordering Clinician Indication Dosage Frequency Signature (SIG) Comments Components Source Losartan Potassium (COZAAR) 100 MG oral Tablet 2022-07 00:00: 00 Yes [id number] 100mg Take 1 tablet (100 mg total) by mouth daily. Lupe medrano [place] [facility] Syringes does not apply Misc 2022-07 00:00: 00 Yes [id number] 1 inch 18G needle with 5 cc [...] 2022-07 00:00: 00 08-18 05:59 :00 No [id number] 200mg Inject 200 mg into the muscle every 14 days. Lupe medrano Alprazolam 1 MG oral Tablet 2022-07 00:00: 00 Yes [id number] 1mg QD Take 1 tablet (1 mg total) by mouth nightly as needed for anxiety. Lupe medrano Carvedilol (Coreg) 12.5 MG oral Tablet 2022-07 00:00: 00 Yes [id number] 12.5mg Take 1 tablet (12.5 mg total) by mouth in the morning and 1 tablet (12.5 mg total) in the evening. Take with meals. Lupe medrano Testosteron e Cypionate (DEPO-TESTO STERONE) 200 mg/mL - Every 14 Days 2022-07 0-11 16:15: 00 08-29 17:14 :00 No [id number] 200mg Lupe medrano Tadalafil (Cialis) 5 MG oral Tablet 2022-07 0-09 00:00: 00 10-06 04:59 :00 No [id number] 5mg QD Take 1 tablet (5 mg [...] 808 00:00: 00 04-18 00:00 :00 No [id number] 1mg QD Take 1 tablet (1 mg total) by mouth nightly as needed for anxiety Lupe medrano Alprazolam 1 MG oral Tablet 01-16 00:00: 00 Yes [id number] 1mg QD Take 1 tablet (1 mg total) by mouth nightly as needed for anxiety Lupe medrano Amlodipine Besylate (Norvasc) 5 MG oral Tablet 01-16 00:00: 00 Yes [id number] 5mg Take 1 tablet (5 mg total) by mouth daily Lupe medrano Losartan Potassium (COZAAR) 100 MG oral Tablet 01-16 00:00: 00 Yes [id number] 100mg Take 1 tablet (100 mg total) by mouth daily Lupe medrano Metformin HCl 500 MG oral Tablet 01-16 00:00: 00 Yes [id number] 500mg Take 1 tablet (500 mg total) by mouth in the morning and 1 tablet (500 mg total) in the evening. Take with meals. Lupe medrano Carvedilol (Coreg) 6.25 MG oral Tablet 01-16 00:00: 00 04-18 00:00 :00 No [id number] 6.25mg Take 1 tablet (6.25 mg total) by mouth in the morning and 1 tablet (6.25 mg total) in the evening. Take with meals. Lupe medrano Doxycycline Hyclate 100 MG oral Capsule 6 00:00: 00 01-16 00:00 :00 No [id number] 100mg Take 1 capsule (100 mg total) by mouth 2 times daily for 7 days Lupe medrano Amlodipine Besylate (Norvasc) 5 MG oral Tablet 11-28 00:00: 00 Yes [id number] 5mg Take 1 tablet (5 mg total) by mouth daily Lupe medrano Carvedilol (Coreg) 6.25 MG oral Tablet 11-28 00:00: 00 Yes [id number] 6.25mg Take 1 tablet (6.25 mg total) by mouth in the morning and 1 tablet (6.25 mg total) in the evening. Take with meals. Lupe medrano Metformin HCl 500 MG oral Tablet 11-28 00:00: 00 Yes [id number] 500mg Take 1 tablet (500 mg total) by mouth in the morning and 1 tablet (500 mg total) in the evening. Take with meals. Lupe medrano Alprazolam 1 MG oral Tablet 11-28 00:00: 00 Yes [id number] 1mg QD Take 1 tablet (1 mg total) by mouth nightly as needed for anxiety Lupe medrano Losartan Potassium (COZAAR) 100 MG oral Tablet 11-28 00:00: 00 01-16 00:00 :00 No [id number] 100mg Take 1 tablet (100 mg total) by mouth daily Lupe medrano Doxycycline Hyclate 100 MG oral Capsule 11-14 00:00: 00 11-28 00:00 :00 No [id number] 100mg Take 1 capsule (100 mg total) by mouth 2 times daily for 7 days Lupe medrano Mupirocin (BACTROBAN) 2 % apply externally Ointment 10-19 00:00: 00 Yes [id number] Apply 1 applicatio n. topically 3 times daily Lupe medrano Metformin HCl 500 MG oral Tablet 10-19 00:00: 00 11-28 00:00 :00 No [id number] 1000mg Take 2 tablets (1,000 mg total) [...] 10-13 00:00: 00 11-28 00:00 :00 No [id number] 6.25mg Take 1 tablet (6.25 mg total) by mouth in the morning and 1 tablet (6.25 mg total) in the evening. Take with meals. Lupe medrano Alprazolam 1 MG oral Tablet 10-13 00:00: 00 11-28 00:00 :00 No [id number] 1mg QD Take 1 tablet (1 mg total) by mouth nightly as needed for anxiety Lupe medrano Lisinopril 40 MG oral Tablet 09-14 00:00: 00 Yes [id number] 40mg Take 1 tablet (40 mg total) by mouth daily Lupe medrano Amlodipine Besylate (Norvasc) 5 MG oral Tablet 09-14 00:00: 00 11-28 00:00 :00 No [id number] 5mg Take 1 tablet (5 mg total) by mouth daily Lupe medrano Mupirocin (BACTROBAN) 2 % apply externally Ointment 09-12 00:00: 00 Yes [id number] Apply 1 applicatio n. topically 3 times daily Lupe medrano Alprazolam 2 MG oral Tablet 09-05 08:14: 52 Yes 2mg QD Take 2 mg by mouth nightly as needed Lupe medrano Lisinopril 20 MG oral Tablet 09-05 00:00: 00 Yes [id number] 20mg Take 1 tablet (20 mg total) by mouth daily Lupe medrano Metformin HCl 500 MG oral Tablet 09-05 00:00: 00 Yes [id number] 500mg Take 1 tablet (500 mg total) by mouth in the morning and 1 tablet (500 mg total) in the evening. Take with meals. Lupe medrano Propranolol HCl 10 MG oral Tablet 09-05 00:00: 00 Yes [id number] 20mg Take 2 tablets (20 mg total) by mouth 3 times daily Lupe medrano Doxycycline Hyclate 100 MG oral Tablet 09-05 00:00: 00 Yes [id number] 100mg Take 1 tablet (100 mg total) by mouth 2 times daily Lupe medrano Mupirocin (BACTROBAN) 2 % apply externally Ointment 09-05 00:00: 00 Yes [id number] Apply 1 applicatio n. topically 3 times daily Lupe medrano Escitalopra m Oxalate (Lexapro) 10 MG oral Tablet 09-05 00:00: 00 09-05 00:00 :00 No [id number] 10mg Take 1 tablet (10 mg total) by mouth daily Lupe medrano sulfamethox azole-trime thoprim (BACTRIM DS) 800-160 mg per tablet 12-04 00:00: 00 12-12 04:59 :00 No [id number] 1{tbl} Take 1 tablet by mouth 2 (two) times daily for 7 days. [facility] Vital Signs Vital Name Observation Time Observation [...] - External Body temperature 2023-03-23 15:04:00 37 Adly Lupe Seybold - External Respiratory rate 2023-03-23 [...] External Body temperature 2022-11-28 20:36:00 37.56 Daly Ulpe Seybold - External Respiratory rate 2022-11-28 20:36:00 [...] External Respiratory rate 2022-10-13 16:44:00 15 /min Luep Seybold - External Body height 2022-10-13 16:44:00 [...] Systolic blood pressure 2020-12-04 22:21:00 168 mm[Hg] [facility] Diastolic blood pressure 2020-12-04 22:21:00 107 mm[Hg] [facility] Heart rate 2020-12-04 22:14:00 87 /min [facility] Body temperature 2020-12-04 22:14:[address] [facility] Respiratory rate 2020-12-04 22:14:00 22 /min [facility] Body height 2020-12-04 22:14:00 182.9 cm [facility] Body weight 2020-12-04 22:14:00 145.746 kg [facility] BMI 2020-12-04 22:14:00 43.58 kg/m2 [facility] Oxygen saturation in Arterial blood by Pulse oximetry 2020-12-04 22:14:00 99 /min [facility] Procedures Procedure Date / Time Performed Performing Clinicia n Source LUMBAR SPINE 2 VIEWS UPRIGHT - CHIRO 2023-03-23 16:02:05 Franci Dan - External CERVICAL SPINE - 2 VIEW 2023-03-23 16:01:26 Franci Dan - External ASSIGNMENT OF BENEFITS 2020-12-04 22:07:06 Docto r Unassigned, [place] [facility] Encounters Start Date/Time End Date/Time Encounter Type Admission Type Attending Clinicians Care Facility Care Department Encounter ID Source 2024-02-28 00:00:00 2024-02-28 00:00:00 Outpatient JORDAN SULLIVAN [id number] Lupe tran 2023-09-21 00:00:00 2023-09-21 00:00:00 Outpatient JORDAN SULLIVAN [id number] Lupe [facility] 2023-07-19 09:00:00 2023-07-19 09:00:00 Outpatient JORDAN SULLIVAN [id number] Lupe Rosado 2023-07-09 08:45:00 2023-07-09 08:45:00 Outpatient ROCHELLE MINAYA [id number] Lupe Rosado 2023-06-15 00:00:00 2023-06-15 00:00:00 Outpatient ROCHELLE MINAYA [id number] Lupe Setran 2023-06-15 00:00:00 2023-06-15 00:00:00 Outpatient ROCHELLE MINAYA [id number] Lupe Rosado 2023-06-15 00:00:00 2023-06-15 00:00:00 Outpatient ROCHELLE MINAYA [id number] Lupe Rosado 2023-06-15 00:00:00 2023-06-15 00:00:00 Outpatient ROCHELLE MINAYA [id number] [facility] 2023-05-31 10:00:00 2023-05-31 10:00:[address], TECH LUPE HOUSER [id number] [facility] 2023-05-31 00:00:00 2023-05-31 00:00:00 Outpatient MD LUPE VELEZ [id number] [facility] 2023-05-29 00:00:00 2023-05-29 00:00:00 Outpatient JORDAN SULLIVAN [id number] [facility] 2023-05-28 19:42:46 2023-05-28 19:42:46 Outpatient CRIS CHACHO [facility] [id number] [facility] 2023-05-28 00:00:00 2023-05-28 00:00:00 Outpatient ANNABELLA, CHILO HOUSER [id number] [facility] 2023-05-15 00:00:00 2023-05-15 00:00:00 Outpatient MD LUPE VELEZ [id number] [facility] 2023-05-08 00:00:00 2023-05-08 00:00:00 Outpatient LUPE HOUSER [id number] [facility] 2023-05-07 16:40:00 2023-05-07 16:40:00 Outpatient ANNABELLA, CHILOYOVANI HOUSER [id number] [facility] 2023-05-05 00:00:00 2023-05-05 00:00:00 Outpatient JORDAN SULLIVAN [id number] [facility] 2023-05-03 00:00:00 2023-05-03 00:00:00 Outpatient MD [facility] [id number] [facility] 00:00:00 2023-04-27 00:00:00 Outpatient JORDAN SULLIVAN [id number] Lupe tran 2023-04-25 11:30:00 2023-04-25 11:30:00 Outpatient DAVID SNEED [id number] [facility] 2023-04-19 00:00:00 2023-04-19 00:00:00 Outpatient REI, ROCHELLE LUPE HOUSER [id number] [facility] 2023-04-18 10:30:00 2023-04-18 10:30:00 Outpatient PREZAS, JORDAN LUPE HOUSER [id number] [facility] 2023-04-18 00:00:00 2023-04-18 00:00:00 Outpatient REI, ROCHELLE LUPE HOUSER [id number] [facility] 2023-04-12 00:00:00 2023-04-12 00:00:00 Outpatient PREZAS, JORDAN LUPE HOUSER [id number] [facility] 2023-04-12 00:00:00 2023-04-12 00:00:00 Outpatient PREZAS, JORDAN LUPE HOUSER [id number] [facility] 2023-04-11 13:15:00 2023-04-11 13:15:00 Outpatient NARENDAVID LUPE HOUSER [id number] [facility] 2023-04-11 00:00:00 2023-04-11 00:00:00 Outpatient REI, ROCHELLERita HOUSER [id number] [facility] 2023-04-10 13:15:00 2023-04-10 13:15:00 Outpatient ATKINS, FRANCI HOUSER [id number] [facility] 2023-04-10 08:35:00 2023-04-10 08:35:00 Outpatient LAB90 LUPE HOUSER [id number] [facility] 2023-04-09 13:30:00 2023-04-09 13:30:00 Outpatient REI, ROCHELLERita HOUSER [id number] Lupe Seybold 2023-03-30 15:15:00 2023-03-30 15:15:00 Outpatient ATPRASHANT, FRANCI HOUSER [id number] [facility] 2023-03-23 10:45:00 2023-03-23 10:45:00 Outpatient LUPE HOUSER [id number] [facility] 2023-03-23 10:40:00 2023-03-23 10:40:00 Outpatient LUPE LUPE [id number] [facility] 2023-03-23 10:00:00 2023-03-23 10:00:00 Outpatient FRANCI DAN LUPE HOUSER [id number] [facility] 2023-03-20 00:00:00 2023-03-20 00:00:00 Outpatient PREZAS, JORDAN LUPE HOUSER [id number] [facility] 2023-03-20 00:00:00 2023-03-20 00:00:00 Outpatient PREZAS, JORDAN LUPE LUPE [id number] [facility] 2023-03-20 00:00:00 2023-03-20 00:00:00 Outpatient PREZAS, JORDAN LUPE LUPE [id number] [facility] 2023-03-13 00:00:00 2023-03-13 00:00:00 Outpatient PREZAS, JORDAN LUPE HOUSER [id number] [facility] 2023-03-12 08:40:00 2023-03-12 08:40:00 Outpatient LAB90 LUPE HOUSER [id number] [facility] 2023-03-12 00:00:00 2023-03-12 00:00:00 Outpatient PREZAS, JORDAN LUPE HOUSER [id number] [facility] 2023-03-09 09:55:00 2023-03-09 09:55:00 Outpatient LAB90 LUPE HOUSER [id number] [facility] 2023-03-07 10:30:00 2023-03-07 10:30:00 Outpatient LAB90 LUPE HOUSER [id number] [facility] 2023-02-12 00:00:00 2023-02-12 00:00:00 Outpatient PREZAS, JORDAN LUPE HOUSER [id number] Lupe Seybold 2023-02-08 08:45:00 2023-02-08 08:45:00 Outpatient LUPE HOUSER [id number] Lupe Seybold 2023-02-06 00:00:00 2023-02-06 00:00:00 Outpatient PREZAS, JORDAN LUPE HOUSER [id number] Lupe Seybold 2023-02-06 00:00:00 2023-02-06 00:00:00 Outpatient PREZAS, JORDAN HOUSER LUPE [id number] [facility] 2023-02-06 00:00:00 2023-02-06 00:00:00 Outpatient PREZAS, JORDAN HOUSER LUPE [id number] [facility] 2023-01-31 09:50:00 2023-01-31 09:50:00 Outpatient LAB90 LUPE LUPE [id number] [facility] 2023-01-31 00:00:00 2023-01-31 00:00:00 Outpatient PREZAS, JORDAN LUPE LUPE [id number] [facility] 2023-01-31 00:00:00 2023-01-31 00:00:00 Outpatient PREZAS, JORDAN LUPE HOUSER [id number] [facility] 2023-01-25 00:00:00 2023-01-25 00:00:00 Outpatient PREZAS, JORDAN HOUSER LUPE [id number] [facility] 2023-01-18 00:00:00 2023-01-18 00:00:00 Outpatient PREZAS, JORDAN LUPE LUPE [id number] [facility] 2023-01-16 14:25:00 2023-01-16 14:25:00 Outpatient LAB90 LUPE LUPE [id number] [facility] 2023-01-16 10:00:00 2023-01-16 10:00:00 Outpatient PREZAS, JORDAN LUPE HOUSER [id number] [facility] 2023-01-16 00:00:00 2023-01-16 00:00:00 Outpatient PREZAS, JORDAN LUPE HOUSER [id number] [facility] 2023-01-08 00:00:00 2023-01-08 00:00:00 Outpatient PREZAS, JORDAN LUPE HOUSER [id number] [facility] 2022-12-28 11:30:00 2022-12-28 11:30:00 Outpatient DARRELROE Davis [id number] [facility] 2022-12-28 00:00:00 2022-12-28 00:00:00 Outpatient PREZAS, JORDAN HOUSER LUPE [id number] [facility] 2022-12-28 00:00:00 2022-12-28 00:00:00 Outpatient PREZAS, JORDAN HOUSER LUPE [id number] [facility] 2022-12-28 00:00:00 2022-12-28 00:00:00 Outpatient PREZAS, JORDAN HOUSER LUPE [id number] [facility] 2022-12-28 00:00:00 2022-12-28 00:00:00 Outpatient PREZAS, JORDAN HOUSER LUPE [id number] [facility] 2022-12-28 00:00:00 2022-12-28 00:00:00 Outpatient PREZAS, JORDAN LUPE HOUSER [id number] [facility] 2022-12-26 15:30:00 2022-12-26 15:30:00 Outpatient PREZAS, JORDAN GARDNERBELGICA HOUSER [id number] [facility] 2022-11-29 14:15:00 2022-11-29 14:15:00 Outpatient ALIOTA, TEE LUPE HOUSER [id number] [facility] 2022-11-28 15:30:00 2022-11-28 15:30:00 Outpatient PREZAS, JORDAN [id number] [facility]:00:00 2022-11-28 00:00:00 Outpatient LUPE HOUSER [id number] [facility] 2022-11-28 00:00:00 2022-11-28 00:00:00 Outpatient PREZAS, JORDAN LUPE HOUSER [id number] [facility] 2022-11-15 14:30:00 2022-11-15 14:30:00 Outpatient PREZAS, JORDAN LUPE HOUSER [id number] [facility] 2022-11-14 00:00:00 2022-11-14 00:00:00 Outpatient PREZAS, JORDAN LUPE HOUSER [id number] [facility] 2022-11-14 00:00:00 2022-11-14 00:00:00 Outpatient PREZAS, JORDAN LUPE HOUSER [id number] [facility] 2022-10-31 00:00:00 2022-10-31 00:00:00 Outpatient PREZAS, JORDAN LUPE HOUSER [id number] [facility] 2022-10-31 00:00:00 2022-10-31 00:00:00 Outpatient PREZAS, JORDAN LUPE HOUSER [id number] [facility] 2022-10-30 00:00:00 2022-10-30 00:00:00 Outpatient TING, JAKOB LUPE HOUSER [id number] [facility] 2022-10-25 08:00:00 2022-10-25 08:00:00 Outpatient HUNDL, MACIEJ HOUSER [id number] [facility] 2022-10-19 00:00:00 2022-10-19 00:00:00 Outpatient PREZAS, JORDAN LUPE HOUSER [id number] [facility] 2022-10-19 00:00:00 2022-10-19 00:00:00 Outpatient HUNDL, MACIEJ HOUSER [id number] [facility] 2022-10-18 00:00:00 2022-10-18 00:00:00 Outpatient HUNDL, MACIEJ HOUSER [id number] [facility] 2022-10-18 00:00:00 2022-10-18 00:00:00 Outpatient HUNDL, MACIEJ HOUSER [id number] Lupe Seybold 2022-10-13 12:20:00 2022-10-13 12:20:00 Outpatient LABDilip HOUSER [id number] Lupe Seybold 2022-10-13 11:45:00 2022-10-13 11:45:00 Outpatient PREZAS, JORDAN LUPE HOUSER [id number] Lupe Seybold 2022-10-12 08:00:00 2022-10-12 08:00:00 Outpatient PREZAS, JORDAN HOUSER [id number] Lupe Seybold 2022-10-05 00:00:00 2022-10-05 00:00:00 Outpatient MACIEJ MORENO LUPE [id number] Lupe Rosado 2022-09-21 09:00:00 2022-09-21 09:00:00 Outpatient MACIEJ MORENO LUPE [id number] Lupe Rosado 2022-09-14 09:00:00 2022-09-14 09:00:00 Outpatient DAVID SNEED LUPE HOUSER [id number] [facility] Rosado 2022-09-14 00:00:00 2022-09-14 00:00:00 Outpatient JORDAN SULLIVAN LUPE HOUSER [id number] Lupe Rosado 2022-09-12 09:00:00 2022-09-12 09:00:00 Outpatient DAVID SNEED LUPE HOUSER [id number] Lupe Rosado 2022-09-12 00:00:00 2022-09-12 00:00:00 Outpatient MACIEJ MORENO LUPE HOUSER [id number] Lupe Rosado 2022-09-05 09:00:00 2022-09-05 09:00:00 Outpatient LAB90 LUPEBELGICA HOUSER [id number] Lupe Rosado 2022-09-05 08:00:00 2022-09-05 08:00:00 Outpatient MACIEJ MORENO LUPE HOUSER [id number] Lupe Rosado 2022-08-28 00:00:00 2022-08-28 00:00:00 Outpatient JORDAN SULLIVAN LUPE HOUSER [id number] [facility]pe Rosado 2022 11:15:00 2022 11:15:00 Outpatient JONO ELDER LUPE HOUSER [id number] [facility] 2020-12-04 17:09:14 2020-12-04 18:03:41 Urgent Care Provider, [facility] Med Ag[facility] [id number] [facility] 2020-12-04 16:40:00 2020-12-04 16:40:00 Outpatient MED VILLALPANDO [facility] [id number] [facility] 2020-12-04 00:00:00 2020-12-04 00:00:00 Orders Only Doctor Unassigned, [place] [facility] [id number] [facility]
--- NOTE | 2024-06-14 19:31 | ER ---
Nurse's Notes [facility] Name: Jorge Estrada Age: 58 yrs Sex: Male : 1965 Arrival Date: 06/14/2024 Time: 18:26 Bed DIS1 Private MD: Diagnosis: Encounter for removal of lindsay Presentation: 06/14 18:30 Chief complaint: Patient states: Would like catheter removed. Placed last week during ll1 surgery. Coronavirus screen: Client denies travel out of the [place] in the last 14 days. At this time, the client does not indicate any symptoms associated with coronavirus-19. Ebola Screen: Patient denies travel to an Ebola-affected area in the 21 days before illness onset. Initial Sepsis Screen: Does the patient meet any 2 criteria? No. Patient's initial sepsis screen is negative. Does the patient have a suspected source of infection? No. Patient's initial sepsis screen is negative. Risk Assessment: Do you want to hurt yourself or someone else? Patient reports no desire to harm self or others. Onset of symptoms was June 12, 2024. 18:30 Method Of Arrival: Ambulatory ll1 18:30 Acuity: TALISHA 4 ll1 Triage Assessment: 18:31 General: Appears in no apparent distress. Behavior is calm, cooperative, appropriate ll1 for age, Reports wanting catheter removed. Pain: Denies pain. Neuro: No deficits noted. : Reports wanting catheter removed. Historical: - Allergies: 18:30 No Known Drug Allergies; ll1 - PMHx: 18:30 Anxiety; diabetes mellitus; Hypertensive disorder; ll1 - PSHx: 18:30 hernia repair; ll1 18:36 debridement of leg ulcers; ll1 - Immunization history:: Adult Immunizations up to date. - Social history:: Smoking status: Patient reports the use of cigarette tobacco products, denies chronic smoking, but will smoke occasionally, smokes .2 packs per day. Assessment: 18:44 Reassessment: No changes from previously documented assessment. lindsay removed, ll1 tolerated well. 19:20 General: called from lobby. no response. lg3 19:30 General: called from lobby. no response. provider notified. lg3 20:15 General: DC ordered by provider. PT not in ED for discharge instructions. lg3 Vital Signs: 18:34 BP 196 / 106; Pulse 89; Resp 17; Temp 97; Pulse Ox 99% ; Weight 134.26 kg; Height 6 ft. ll1 0 in. ; Pain 7/10; 18:34 Body Mass Index 40.14 (134.26 kg, 182.88 cm) ll1 18:34 Pain Scale: Adult ll1 ED Course: 18:29 Patient arrived in ED. im 18:30 Arm band placed on. ll1 18:31 Triage completed. ll1 18:36 [facility]cconnell [facility]-C [facility] kb 18:36 Daniel Howard MD is Attending Physician. kb Administered Medications: No medications were administered Medication: 20:15 VIS not applicable for this client. lg3 Outcome: 19:30 Discharge ordered by . kb 20:15 Discharged to Unknown pt departed ED prior to receiving DC paperwork lg3 20:15 Condition: stable lg3 21:12 Patient left the ED. lg3 Signatures: Karo Mcconnell FNP-C FNP-Nelly Armstrong RN RN lg3 Meredith Roberts RN RN ll1 Jazmyne Mccauley Hodan Parra, MEAGAN RN br2 Corrections: (The following items were deleted from the chart) 18:36 18:30 Chief complaint: Patient states: Would like catheter removed. ll1 ll1 18:37 18:34 Pulse 89bpm; Resp 17bpm; Pulse Ox 99%; Temp 97F; 134.26 kg; Height 6 ft. 0 in.; ll1 BMI: 40.1; Pain 7/10, Adult; ll1 19:32 19:15 Hodan Parra, MEAGAN is Primary Nurse. br2 lg3 21:10 21:05 General: DC ordered by provider. PT not in ED for discharge instructions. lg3 lg3
--- NOTE | 2024-06-14 19:31 | EDPHYS ---
Physician Documentation [facility] Name: Jorge Estrada Age: 58 yrs Sex: Male : 1965 Arrival Date: 06/14/2024 Time: 18:26 Bed DIS1 Private MD: ED Physician Daniel Howard HPI: 06/14 23:50 This 58 yrs old Male presents to ER via Ambulatory with complaints of Problem With kb Urinary Catheter - removal. 23:50 Patient is a 58-year-old male who presents to have Lindsay removed. States he had a kb surgery last week where they placed a Lindsay and he was told to come in on to have it removed. States he came on and they convinced him to leave it in place and follow-up with urology. States he called the urologist and was not able to make an appointment for anytime soon so he is here today to have the Lindsay removed. Reports he is having a lot of discomfort because of it being in place. Denies abdominal pain, fever, flank pain.. Historical: - Allergies: 18:30 No Known Drug Allergies; ll1 - PMHx: 18:30 Anxiety; diabetes mellitus; Hypertensive disorder; ll1 - PSHx: 18:30 hernia repair; ll1 18:36 debridement of leg ulcers; ll1 - Immunization history:: Adult Immunizations up to date. - Social history:: Smoking status: Patient reports the use of cigarette tobacco products, denies chronic smoking, but will smoke occasionally, smokes .2 packs per day. ROS: 23:49 Constitutional: As per HPI kb Exam: 23:49 Constitutional: This is a well developed, well nourished patient who is awake, alert, kb and in no acute distress. Head/Face: Normocephalic, atraumatic. ENT: Moist Mucous membranes Cardiovascular: Regular rate Respiratory: Respirations even and unlabored. No increased work of breathing. Talking in full sentences Abdomen/GI: Soft, non-tender. No distention Skin: Warm, dry with normal turgor. Normal color. MS/ Extremity: Pulses equal, no cyanosis. Neurovascular intact. Full, normal range of motion. Neuro: Awake and alert, GCS 15, oriented to person, place, time, and situation. Vital Signs: 18:34 BP 196 / 106; Pulse 89; Resp 17; Temp 97; Pulse Ox 99% ; Weight 134.26 kg; Height 6 ft. ll1 0 in. ; Pain 7/10; 18:34 Body Mass Index 40.14 (134.26 kg, 182.88 cm) ll1 18:34 Pain Scale: Adult ll1 MDM: 18:36 Medical Screening Exam initiated kb 18:50 ED course: Patient educated on risk of removing Lindsay in the ER. Educated that he may kb end up needing to have 1 replaced due to inability to urinate. Patient states he would like it removed anyway and he will wait to leave until he is able to urinate.. 23:49 Differential diagnosis: Lindsay malfunction, penile discomfort, UTI. Data reviewed: vital kb signs, nurses notes. ED course: Patient left from the lobby after catheter removed.. 06/14 18:37 Order name: Lenore. Order: please remove lindsay; Complete Time: 18:44 kb Administered Medications: No medications were administered Disposition Summary: 06/14/24 19:30 Discharge Ordered Notes: Location: Home kb Condition: Stable kb Diagnosis - Encounter for removal of lindsay kb Followup: kb - With: Emergency Department - When: As needed - Reason: Worsening of condition Followup: kb - With: Private Physician - When: 2 - 3 days - Reason: Recheck today's complaints, Continuance of care, Re-evaluation by your physician Discharge Instructions: - Discharge Summary Sheet kb - Indwelling Urinary Catheter Insertion, Care After kb Forms: - Medication Reconciliation Form kb - Antibiotic Education kb - Prescription Opioid Use kb - Patient Portal Instructions kb - Leadership Thank You Letter kb Signatures: Karo Mcconnell FNP-C FNP-Ckb Lewis, Lynsay, RN RN ll1
[2024-06-14 21:25] VITALS: BP 196/106; TEMP 97; O2SAT 99
== END 2024-06-14 21:12 | disposition home or self-care (01) ==
LOC: ER 18:26
DX: Z46.6 Encounter for fitting and adjustment of urinary device (principal)
CPT/HCPCS: 99281

== ENCOUNTER 2024-07-31 16:59 | Inpatient (IN) | payer OTHER ==
--- OUTSIDE RECORDS SUMMARY | 2024-07-31 17:02 | XMS REPORT | Continuity of Care Document ---
Author Name Unknown Address [address] [place] [address] [facility] thconnect Address 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, without long-term current use of [...] active problems No known active problems Disease [facility] Allergies, Adverse Reactions, Alerts Allergy Name Allergy Type Status Severity Reaction(s) Onset Date Inactive Date Treating Clinician Comments Source Lisinopr il Propensi ty to adverse reaction s to drug Active Other 10-31 00:00: 00 Cough Lupe Rosado - Externa l NO KNOWN ALLERGIE S Drug Class Active [facility] Social History Social Habit Start Date Stop Date Quantity Comments Source Gender identity Juana Rosado - External Sexual orientation K wiliam Ashlee - External History of tobacco use Cigarette Smoker Lupe valdez - External Exposure to SARS-CoV-2 (event) Not sure [facility] Alcohol intake 2023-05-07 00:00:00 2023-05-07 00:00:00 Lifetime [...] exposure 2020-12-04 00:00:00 2020-12-04 00:00:00 Never used [facility] Sex Assigned At 1965 00:00:00 1965 00:00:00 Lupe Rosado - External Smoking Status Start Date Stop Date Source Unknown if ever smoked Un[facility] Smokes tobacco daily 2023-04-18 00:00:00 Lupe Rosado - External Medications Ordered Medication Name Filled Medication Name Start Date Stop Date Current Medication? Ordering Clinician Indication Dosage Frequency Signature (SIG) Comments Components Source Losartan Potassium (COZAAR) 100 MG oral Tablet 2022-07 00:00: 00 Yes [id number] 100mg Take 1 tablet (100 mg total) by mouth daily. Lupe medrano [facility] does not apply Misc 2022-07 00:00: 00 Yes [id number] 1 inch 18G needle with 5 cc [...] 2022-07 00:00: 00 08-18 05:59 :00 No [id number] 200mg Inject 200 mg into the muscle every 14 days. Lupe medrano Alprazolam 1 MG oral Tablet 2022-07 00:00: 00 Yes [id number] 1mg QD Take 1 tablet (1 mg total) by mouth nightly as needed for anxiety. Lupe medrano Carvedilol (Coreg) 12.5 MG oral Tablet 2022-07 00:00: 00 Yes [id number] 12.5mg Take 1 tablet (12.5 mg total) by mouth in the morning and 1 tablet (12.5 mg total) in the evening. Take with meals. Lupe medrano Testosteron e Cypionate (DEPO-TESTO STERONE) 200 mg/mL - Every 14 Days 2022-07 0-11 16:15: 00 08-29 17:14 :00 No [id number] 200mg Lupe medrano Tadalafil (Cialis) 5 MG oral Tablet 2022-07 0-09 00:00: 00 10-06 04:59 :00 No [id number] 5mg QD Take 1 tablet (5 mg [...] 808 00:00: 00 04-18 00:00 :00 No [id number] 1mg QD Take 1 tablet (1 mg total) by mouth nightly as needed for anxiety Lupe medrano Alprazolam 1 MG oral Tablet 01-16 00:00: 00 Yes [id number] 1mg QD Take 1 tablet (1 mg total) by mouth nightly as needed for anxiety Lupe medrano Amlodipine Besylate (Norvasc) 5 MG oral Tablet 01-16 00:00: 00 Yes [id number] 5mg Take 1 tablet (5 mg total) by mouth daily Lupe medrano Losartan Potassium (COZAAR) 100 MG oral Tablet 01-16 00:00: 00 Yes [id number] 100mg Take 1 tablet (100 mg total) by mouth daily Lupe medrano Metformin HCl 500 MG oral Tablet 01-16 00:00: 00 Yes [id number] 500mg Take 1 tablet (500 mg total) by mouth in the morning and 1 tablet (500 mg total) in the evening. Take with meals. Lupe medrano Carvedilol (Coreg) 6.25 MG oral Tablet 01-16 00:00: 00 04-18 00:00 :00 No [id number] 6.25mg Take 1 tablet (6.25 mg total) by mouth in the morning and 1 tablet (6.25 mg total) in the evening. Take with meals. Lupe medrano Doxycycline Hyclate 100 MG oral Capsule 6 00:00: 00 01-16 00:00 :00 No [id number] 100mg Take 1 capsule (100 mg total) by mouth 2 times daily for 7 days Lupe medrano Amlodipine Besylate (Norvasc) 5 MG oral Tablet 11-28 00:00: 00 Yes [id number] 5mg Take 1 tablet (5 mg total) by mouth daily Lupe medrano Carvedilol (Coreg) 6.25 MG oral Tablet 11-28 00:00: 00 Yes [id number] 6.25mg Take 1 tablet (6.25 mg total) by mouth in the morning and 1 tablet (6.25 mg total) in the evening. Take with meals. Lupe medrano Metformin HCl 500 MG oral Tablet 11-28 00:00: 00 Yes [id number] 500mg Take 1 tablet (500 mg total) by mouth in the morning and 1 tablet (500 mg total) in the evening. Take with meals. Lupe medrano Alprazolam 1 MG oral Tablet 11-28 00:00: 00 Yes [id number] 1mg QD Take 1 tablet (1 mg total) by mouth nightly as needed for anxiety Lupe medrano Losartan Potassium (COZAAR) 100 MG oral Tablet 11-28 00:00: 00 01-16 00:00 :00 No [id number] 100mg Take 1 tablet (100 mg total) by mouth daily Lupe medrano Doxycycline Hyclate 100 MG oral Capsule 11-14 00:00: 00 11-28 00:00 :00 No [id number] 100mg Take 1 capsule (100 mg total) by mouth 2 times daily for 7 days Lupe medrano Mupirocin (BACTROBAN) 2 % apply externally Ointment 10-19 00:00: 00 Yes [id number] Apply 1 applicatio n. topically 3 times daily Lupe medrano Metformin HCl 500 MG oral Tablet 10-19 00:00: 00 11-28 00:00 :00 No [id number] 1000mg Take 2 tablets (1,000 mg total) [...] 10-13 00:00: 00 11-28 00:00 :00 No [id number] 6.25mg Take 1 tablet (6.25 mg total) by mouth in the morning and 1 tablet (6.25 mg total) in the evening. Take with meals. Lupe medrano Alprazolam 1 MG oral Tablet 10-13 00:00: 00 11-28 00:00 :00 No [id number] 1mg QD Take 1 tablet (1 mg total) by mouth nightly as needed for anxiety Lupe medrano Lisinopril 40 MG oral Tablet 09-14 00:00: 00 Yes [id number] 40mg Take 1 tablet (40 mg total) by mouth daily Lupe medrano Amlodipine Besylate (Norvasc) 5 MG oral Tablet 09-14 00:00: 00 11-28 00:00 :00 No [id number] 5mg Take 1 tablet (5 mg total) by mouth daily Lupe medrano Mupirocin (BACTROBAN) 2 % apply externally Ointment 09-12 00:00: 00 Yes [id number] Apply 1 applicatio n. topically 3 times daily Lupe medrano Alprazolam 2 MG oral Tablet 09-05 08:14: 52 Yes 2mg QD Take 2 mg by mouth nightly as needed Lupe medrano Lisinopril 20 MG oral Tablet 09-05 00:00: 00 Yes [id number] 20mg Take 1 tablet (20 mg total) by mouth daily Lupe medrano Metformin HCl 500 MG oral Tablet 09-05 00:00: 00 Yes [id number] 500mg Take 1 tablet (500 mg total) by mouth in the morning and 1 tablet (500 mg total) in the evening. Take with meals. Luep medrano Propranolol HCl 10 MG oral Tablet 09-05 00:00: 00 Yes [id number] 20mg Take 2 tablets (20 mg total) by mouth 3 times daily Lupe medrano Doxycycline Hyclate 100 MG oral Tablet 09-05 00:00: 00 Yes [id number] 100mg Take 1 tablet (100 mg total) by mouth 2 times daily Lupe medrano Mupirocin (BACTROBAN) 2 % apply externally Ointment 09-05 00:00: 00 Yes [id number] Apply 1 applicatio n. topically 3 times daily Lupe medrano Escitalopra m Oxalate (Lexapro) 10 MG oral Tablet 09-05 00:00: 00 09-05 00:00 :00 No [id number] 10mg Take 1 tablet (10 mg total) by mouth daily Lupe medrano sulfamethox azole-trime thoprim (BACTRIM DS) 800-160 mg per tablet 12-04 00:00: 00 12-12 04:59 :00 No [id number] 1{tbl} Take 1 tablet by mouth 2 (two) times daily for 7 days. [facility] Vital Signs Vital Name Observation [...] Systolic blood pressure 2020-12-04 22:21:00 168 mm[Hg] [facility] Diastolic blood pressure 2020-12-04 22:21:00 107 mm[Hg] [facility] Heart rate 2020-12-04 22:14:00 87 /min [facility] Body temperature 2020-12-04 22:14:00 36.72 Daly [facility] Respiratory rate 2020-12-04 22:14:00 22 /min [facility] Body height 2020-12-04 22:14:00 182.9 cm [facility] Body weight 2020-12-04 22:14:00 145.746 kg [facility] BMI 2020-12-04 22:14:00 43.58 kg/m2 [facility] Oxygen saturation in Arterial blood by Pulse oximetry 2020-12-04 22:14:00 99 /min [facility] Procedures Procedure Date / Time Performed Performing Clinicia n Source LUMBAR SPINE 2 VIEWS UPRIGHT - CHIRO 2023-03-23 16:02:05 Franci Dan - External CERVICAL SPINE - 2 VIEW 2023-03-23 16:01:26 Franci Dan - External ASSIGNMENT OF BENEFITS 2020-12-04 22:07:06 Docto r Unassigned, Fowler [facility] Encounters Start Date/Time End Date/Time Encounter Type Admission Type Attending Clinicians Care Facility Care Department Encounter ID Source 2024-02-28 00:00:00 2024-02-28 00:00:00 Outpatient JORDAN SULLIVAN [id number] Lupe tran 2023-09-21 00:00:00 2023-09-21 00:00:00 Outpatient JORDAN SULLIVAN [id number] Lupe Seybcourtney 2023-07-19 09:00:00 2023-07-19 09:00:00 Outpatient JORDAN SULLIVAN [id number] Lupe Rosado 2023-07-09 08:45:00 2023-07-09 08:45:00 Outpatient ROCHELLE MINAYA [id number] Lupe Rosado 2023-06-15 00:00:00 2023-06-15 00:00:00 Outpatient ROCHELLE MINAYA [id number] Lupe Setran 2023-06-15 00:00:00 2023-06-15 00:00:00 Outpatient ROCHELLE MINAYA [id number] Lupe Rosado 2023-06-15 00:00:00 2023-06-15 00:00:00 Outpatient ROCHELLE MINAYA [id number] Lupe Rosado 2023-06-15 00:00:00 2023-06-15 00:00:00 Outpatient ROCHELLE MINAYA [id number] [facility] 2023-05-31 10:00:00 2023-05-31 10:00:[address], TECH LUPE HOUSER [id number] [facility] 2023-05-31 00:00:00 2023-05-31 00:00:00 Outpatient MD LUPE VELEZ [id number] [facility] 2023-05-29 00:00:00 2023-05-29 00:00:00 Outpatient JORDAN SULLIVAN [id number] [facility] 2023-05-28 19:42:46 2023-05-28 19:42:46 Outpatient CRIS CHACHO [facility] [id number] [facility] 2023-05-28 00:00:00 2023-05-28 00:00:00 Outpatient ANNABELLA, CHILO HOUSER [id number] [facility] 2023-05-15 00:00:00 2023-05-15 00:00:00 Outpatient MD LUPE VELEZ [id number] [facility]pe [facility] 2023-05-08 00:00:00 2023-05-08 00:00:00 Outpatient LUPE HOUSER [id number] [facility]pe [facility] 2023-05-07 16:40:00 2023-05-07 16:40:00 Outpatient ANNABELLA, CHILOYOVANI HOUSER [id number] [facility] 2023-05-05 00:00:00 2023-05-05 00:00:00 Outpatient JORDAN SULLIVAN [id number] [facility] 2023-05-03 00:00:00 2023-05-03 00:00:00 Out[facility] MD [id number] [facility] 00:00:00 2023-04-27 00:00:00 Outpatient JORDAN SULLIVAN [id number] Lupe tran 2023-04-25 11:30:00 2023-04-25 11:30:00 Outpatient DAVID SNEED [id number] [facility] 2023-04-19 00:00:00 2023-04-19 00:00:00 Outpatient REI, ROCHELLE LUPE HOUSER [id number] [facility]pe [facility] 2023-04-18 10:30:00 2023-04-18 10:30:00 Outpatient PREZAS, JORDAN LUPE HOUSER [id number] [facility] 2023-04-18 00:00:00 2023-04-18 00:00:00 Outpatient REI, ROCHELLE LUPE HOUSER [id number] [facility] 2023-04-12 00:00:00 2023-04-12 00:00:00 Outpatient PREZAS, JORDAN LUPE HOUSER [id number] [facility] 2023-04-12 00:00:00 2023-04-12 00:00:00 Outpatient PREZAS, JORDAN LUPE HOUSER [id number] [facility] 2023-04-11 13:15:00 2023-04-11 13:15:00 Outpatient NARENDAVID LUPE HOUSER [id number] [facility] 2023-04-11 00:00:00 2023-04-11 00:00:00 Outpatient REI, ROCHELLERita HOUSER [id number] [facility] 2023-04-10 13:15:00 2023-04-10 13:15:00 Outpatient ATKINS, FRANCI HOUSER [id number] [facility] 2023-04-10 08:35:00 2023-04-10 08:35:00 Outpatient LAB90 LUPE HOUSER [id number] [facility] 2023-04-09 13:30:00 2023-04-09 13:30:00 Outpatient REI, ROCHELLERita HOUSER [id number] Lupe Seybold 2023-03-30 15:15:00 2023-03-30 15:15:00 Outpatient ATPRASHANT, FRANCI HOUSER [id number] [facility] 2023-03-23 10:45:00 2023-03-23 10:45:00 Outpatient LUPE HOUSER [id number] [facility] 2023-03-23 10:40:00 2023-03-23 10:40:00 Outpatient LUPE LUPE [id number] [facility] 2023-03-23 10:00:00 2023-03-23 10:00:00 Outpatient FRANCI DAN LUPE HOUSER [id number] [facility] 2023-03-20 00:00:00 2023-03-20 00:00:00 Outpatient PREZAS, JORDAN LUPE HOUSER [id number] [facility] 2023-03-20 00:00:00 2023-03-20 00:00:00 Outpatient PREZAS, JORDAN LUPE LUPE [id number] [facility] 2023-03-20 00:00:00 2023-03-20 00:00:00 Outpatient PREZAS, JORDAN LUPE LUPE [id number] [facility] 2023-03-13 00:00:00 2023-03-13 00:00:00 Outpatient PREZAS, JORDAN LUPE HOUSER [id number] [facility] 2023-03-12 08:40:00 2023-03-12 08:40:00 Outpatient LAB90 LUPE HOUSER [id number] [facility] 2023-03-12 00:00:00 2023-03-12 00:00:00 Outpatient PREZAS, JORDAN LUPE HOUSER [id number] [facility] 2023-03-09 09:55:00 2023-03-09 09:55:00 Outpatient LAB90 LUPE HOUSER [id number] [facility] 2023-03-07 10:30:00 2023-03-07 10:30:00 Outpatient LAB90 LUPE HOUSER [id number] [facility] 2023-02-12 00:00:00 2023-02-12 00:00:00 Outpatient PREZAS, JORDAN LUPE HOUSER [id number] Lupe Seybold 2023-02-08 08:45:00 2023-02-08 08:45:00 Outpatient LUPE HOUSER [id number] Lupe Seybold 2023-02-06 00:00:00 2023-02-06 00:00:00 Outpatient PREZAS, JORDAN LUPE HOUSER [id number] Lupe Seybold 2023-02-06 00:00:00 2023-02-06 00:00:00 Outpatient PREZAS, JORDAN HOUSER LUPE [id number] [facility] 2023-02-06 00:00:00 2023-02-06 00:00:00 Outpatient PREZAS, JORDAN HOUSER LUPE [id number] [facility] 2023-01-31 09:50:00 2023-01-31 09:50:00 Outpatient LAB90 LUPE LUPE [id number] [facility] 2023-01-31 00:00:00 2023-01-31 00:00:00 Outpatient PREZAS, JORDAN LUPE LUPE [id number] [facility] 2023-01-31 00:00:00 2023-01-31 00:00:00 Outpatient PREZAS, JORDAN LUPE HOUSER [id number] [facility] 2023-01-25 00:00:00 2023-01-25 00:00:00 Outpatient PREZAS, JORDAN HOUSER LUPE [id number] [facility]pe [facility] 2023-01-18 00:00:00 2023-01-18 00:00:00 Outpatient PREZAS, JORDAN LUPE LUPE [id number] [facility] 2023-01-16 14:25:00 2023-01-16 14:25:00 Outpatient LAB90 LUPE LUPE [id number] [facility] 2023-01-16 10:00:00 2023-01-16 10:00:00 Outpatient PREZAS, JORDAN LUPE HOUSER [id number] [facility] 2023-01-16 00:00:00 2023-01-16 00:00:00 Outpatient PREZAS, JORDAN LUPE HOUSER [id number] [facility] 2023-01-08 00:00:00 2023-01-08 00:00:00 Outpatient PREZAS, JORDAN LUPE HOUSER [id number] [facility] 2022-12-28 11:30:00 2022-12-28 11:30:00 Outpatient DARRELROE Davis [id number] [facility] 2022-12-28 00:00:00 2022-12-28 00:00:00 Outpatient PREZAS, JORDAN HOUSER LUPE [id number] [facility] 2022-12-28 00:00:00 2022-12-28 00:00:00 Outpatient PREZAS, JORDAN HOUSER LUPE [id number] [facility] 2022-12-28 00:00:00 2022-12-28 00:00:00 Outpatient PREZAS, JORDAN HOUSER LUPE [id number] [facility] 2022-12-28 00:00:00 2022-12-28 00:00:00 Outpatient PREZAS, JORDAN HOUSER LUPE [id number] [facility] 2022-12-28 00:00:00 2022-12-28 00:00:00 Outpatient PREZAS, JORDAN LUPE HOUSER [id number] [facility] 2022-12-26 15:30:00 2022-12-26 15:30:00 Outpatient PREZAS, JORDAN GARDNERBELGICA HOUSER [id number] [facility] 2022-11-29 14:15:00 2022-11-29 14:15:00 Outpatient ALIOTA, TEE LUPE HOUSER [id number] [facility] 2022-11-28 15:30:00 2022-11-28 15:30:00 Outpatient PREZAS, JORDAN LU[facility]OUSER [id number] [facility]22-[facility]-28 00:00:00 2022-11-28 00:00:00 Outpatient LUPE HOUSER [id number] [facility] 2022-11-28 00:00:00 2022-11-28 00:00:00 Outpatient PREZAS, JORDAN LUPE HOUSER [id number] [facility] 2022-11-15 14:30:00 2022-11-15 14:30:00 Outpatient PREZAS, JORDAN LUPE HOUSER [id number] [facility] 2022-11-14 00:00:00 2022-11-14 00:00:00 Outpatient PREZAS, JORDAN LUPE HOUSER [id number] [facility] 2022-11-14 00:00:00 2022-11-14 00:00:00 Outpatient PREZAS, JORDAN LUPE HOUSER [id number] [facility] 2022-10-31 00:00:00 2022-10-31 00:00:00 Outpatient PREZAS, JORDAN LUPE HOUSER [id number] Lupe [facility] 2022-10-31 00:00:00 2022-10-31 00:00:00 Outpatient PREZAS, JORDAN LUPE HOUSER [id number] [facility] 2022-10-30 00:00:00 2022-10-30 00:00:00 Outpatient TING, JAKOB LUPE HOUSER [id number] [facility] 2022-10-25 08:00:00 2022-10-25 08:00:00 Outpatient HUNDL, MACIEJ HOUSER [id number] [facility] 2022-10-19 00:00:00 2022-10-19 00:00:00 Outpatient PREZAS, JORDAN LUPE HOUSER [id number] [facility] 2022-10-19 00:00:00 2022-10-19 00:00:00 Outpatient HUNDL, MACIEJ HOUSER [id number] [facility] 2022-10-18 00:00:00 2022-10-18 00:00:00 Outpatient HUNDL, MACIEJ HOUSER [id number] [facility] 2022-10-18 00:00:00 2022-10-18 00:00:00 Outpatient HUNDL, MACIEJ HOUSER [id number] Lupe Seybold 2022-10-13 12:20:00 2022-10-13 12:20:00 Outpatient LABDilip HOUSER [id number] Lupe Seybold 2022-10-13 11:45:00 2022-10-13 11:45:00 Outpatient PREZAS, JORDAN LUPE HOUSER [id number] Lupe Seybold 2022-10-12 08:00:00 2022-10-12 08:00:00 Outpatient PREZAS, JORDAN HOUSER [id number] Lupe Seybold 2022-10-05 00:00:00 2022-10-05 00:00:00 Outpatient MACIEJ MORENO LUPE [id number] Lupe Rosado 2022-09-21 09:00:00 2022-09-21 09:00:00 Outpatient MACIEJ MOERNO LUPE [id number] Lupe Rosado 2022-09-14 09:00:00 2022-09-14 09:00:00 Outpatient DAVID SNEED LUPE HOUSER [id number] Lupe Rosado 2022-09-14 00:00:00 2022-09-14 00:00:00 Outpatient JORDAN SULLIVAN LUPE HOUSER [id number] Lupe Rosado 2022-09-12 09:00:00 2022-09-12 09:00:00 Outpatient DAVID SNEED LUPE HOUSER [id number] Lupe Rosado 2022-09-12 00:00:00 2022-09-12 00:00:00 Outpatient MACIEJ MORENO LPUE HOUSER [id number] Lupe Rosado 2022-09-05 09:00:00 2022-09-05 09:00:00 Outpatient LAB90 LUPEBELGICA HOUSER [id number] Lupe Rosado 2022-09-05 08:00:00 2022-09-05 08:00:00 Outpatient MACIEJ MORENO LUPE HOUSER [id number] Lupe Rosado 2022-08-28 00:00:00 2022-08-28 00:00:00 Outpatient JORDAN SULLIVAN LUPE HOUSER [id number] Lupe Rosado 2022 11:15:00 2022 11:15:00 Outpatient JONO ELDER LUPE HOUSER [id number] [facility] 2020-12-04 17:09:14 2020-12-04 18:03:41 Urgent Care Provider, [facility] Med [facility] [id number] [facility] 2020-12-04 16:40:00 2020-12-04 16:40:[address] [facility] [id number] [facility] 2020-12-04 00:00:00 2020-12-04 00:00:00 Orders Only Doctor Unassigned, Fowler [facility] [id number] [facility]
[2024-07-31 19:26] LABS: Absolute Basophils 0.1 K/uL (0-0.5); Absolute Eosinophils 0.3 K/uL (0-0.5); Absolute Lymphocytes (CBC) 1.7 K/uL (0.7-4.9); Absolute Neutrophil 10.4 K/uL (1.8-8.0); Basophils % 0.7 % (0-1.3); Eosinophils % 1.9 % (0-4.4); Hematocrit 34.6 % (39.6-49.0); Hemoglobin 11.3 g/dL (13.6-17.9); Lymphocytes % 12.5 % (15.3-44.8); MCH 28.2 pg (27.0-35.0); MCHC 32.6 g/dL (32.0-36.0); MCV 86.5 fL (80-100); MPV 8.4 fL (7.6-11.3); Monocytes % 7.2 % (3.3-12.3); Neutrophils % 77.7 % (41.7-73.7); Nucleated Red Blood Cells % 0.1 % (0-0); Platelets 350 thou/uL (152-406); Red Cell Distribution Width 14.9 % (12.1-15.2)
[2024-07-31 19:39] LABS: PT Prothrombin Time 13.6 SECONDS (9.4-12.5); PTT, Activated Partial Thromb 29.7 SECONDS (24.3-36.9); Protime INR 1.3
[2024-07-31 19:50] LABS: Albumin 2.5 g/dL (3.4-5.0); Albumin/Globulin Ratio 0.5 (1.1-1.8); Anion Gap 10.5 mEq/L (5.0-15.0); Bilirubin Total 0.3 mg/dL (0.2-1.0); Globulin 5.1 g/dL (2.3-3.5); Potassium 3.5 mEq/L (3.5-5.1); Protein, Total 7.6 g/dL (6.4-8.2)
[2024-07-31] MEDS ORDERED: ONDANSETRON 4 MG/2 ML VIAL ONE (19:52)
[2024-07-31] MEDS ORDERED: VANCOMYCIN 1 GM/VIAL ONE (19:52)
[2024-07-31] MEDS ORDERED: MORPHINE 4 MG/ML SYR ONE (19:52)
[2024-07-31] MEDS ORDERED: NA CHLORIDE 0.9% 250 ML ONE (19:53)
[2024-07-31] MEDS ORDERED: NA CHLORIDE 0.9% 100 ML ONE (19:53)
[2024-07-31] MEDS ORDERED: CEFAZOLIN SODIUM 2 GM/VIAL ONE (19:53)
--- NOTE | 2024-07-31 20:04 | ER ---
Nurse's Notes [facility] Name: Jorge Estrada Age: 58 yrs Sex: Male : 1965 Arrival Date: 07/31/2024 Time: 16:59 Bed 18 Private MD: Diagnosis: Bilateral lower extremity wounds Presentation: 07/31 18:07 Chief complaint: Patient states: I was sent by Dr. Tapia to have surgery on both my jb4 lower legs due to my diabetic ulcers. Coronavirus screen: At this time, the client does not indicate any symptoms associated with coronavirus-19. Ebola Screen: No symptoms or risks identified at this time. Initial Sepsis Screen: Does the patient meet any 2 criteria? No. Patient's initial sepsis screen is negative. Does the patient have a suspected source of infection? No. Patient's initial sepsis screen is negative. Risk Assessment: Do you want to hurt yourself or someone else? Patient reports no desire to harm self or others. Onset of symptoms was July 02, 2022. Transition of care: patient was not received from another setting of care. 18:07 Method Of Arrival: Ambulatory jb4 18:07 Acuity: TALISHA 3 jb4 Triage Assessment: 18:10 General: Appears in no apparent distress. comfortable, Behavior is calm, cooperative, jb4 appropriate for age. Pain: Complains of pain in right michael Pain does not radiate. Pain currently is 6 out of 10 on a pain scale. Neuro: Level of Consciousness is awake, alert, obeys commands, Oriented to person, place, time, situation. Cardiovascular: Patient's skin is warm and dry. Respiratory: Airway is patent Respiratory effort is even, unlabored, Respiratory pattern is regular, symmetrical. Derm: Wound noted right calf, right michael, left calf and left michael Wound is diabetic ulcer. Musculoskeletal: Circulation, motion, and sensation intact. Range of motion: intact in all extremities. Historical: - Allergies: 18:10 No Known Drug Allergies; jb4 - PMHx: 18:10 Anxiety; diabetes mellitus; Hypertensive disorder; jb4 - PSHx: 18:10 debridement of leg ulcers; hernia repair; jb4 - Immunization history:: Adult Immunizations up to date. - Infectious Disease History:: Denies. - Social history:: Smoking status: Patient reports the use of cigarette tobacco products, smokes one-half pack cigarettes per day. - Family history:: not pertinent. Screenin:50 [facility] ED Fall Risk Assessment (Adult) History of falling in the last 3 months, db including since admission No falls in past 3 months (0 pts) Confusion or Disorientation No (0 pts) Intoxicated or Sedated No (0 pts) Impaired Gait No (0 pts) Mobility Assist Device Used No (0 pt) Altered Elimination No (0 pt) Score/Fall Risk Level 0 - 2 = Low Risk Oriented to surroundings, Maintained a safe environment. Abuse screen: Denies threats or abuse. Denies injuries from another. Nutritional screening: No deficits noted. Nutritional screening: No deficits noted. Tuberculosis screening: No symptoms or risk factors identified. Assessment: 18:50 Derm: Wound noted right calf and left michael and left calf and right michael. db 18:55 Reassessment: Patient appears in no apparent distress at this time. Patient and/or db family updated on plan of care and expected duration. Pain level reassessed. Patient is alert, oriented x 3, equal unlabored respirations, skin warm/dry/pink. PATIENT WOUND REDRESSED WITH JESSICA WRAP AND WET TO DRY. General: Appears in no apparent distress. Behavior is calm, cooperative. Neuro: Level of Consciousness is awake, alert, obeys commands, Oriented to person, place, time, situation. Respiratory: Airway is patent Respiratory effort is even, unlabored, Respiratory pattern is regular, agonal. 19:25 General: Appears uncomfortable, Behavior is anxious. Pain: Complains of pain in right ha1 foot and left foot Pain currently is 10 out of 10 on a pain scale. Quality of pain is described as throbbing. Neuro: Level of Consciousness is awake, alert, obeys commands, Oriented to person, place, time, situation. Cardiovascular: Capillary refill < 3 seconds. Respiratory: Airway is patent Respiratory effort is even, unlabored, Respiratory pattern is regular, symmetrical. GI: No signs and/or symptoms were reported involving the gastrointestinal system. Abdomen is round obese, Bowel sounds present X 4 quads. : No signs and/or symptoms were reported regarding the genitourinary system. Derm: Wound noted right foot and left foot. 21:20 Reassessment: Patient and/or family updated on plan of care and expected duration. Pain ha1 level reassessed. Patient is alert, oriented x 3, equal unlabored respirations, skin warm/dry/pink. 22:40 Reassessment: Patient and/or family updated on plan of care and expected duration. Pain ha1 level reassessed. reports feeling anxious requesting. medication notified admission doctor. Vital Signs: 18:07 BP 197 / 113; Pulse 84; Resp 16; Temp 99.4(O); Pulse Ox 97% on R/A; Weight 136.08 kg jb4 (R); Height 6 ft. 0 in. (R); Pain 2/10; 20:11 BP 189 / 117; Pulse 83; Resp 19 S; Temp 97.9(O); Pulse Ox 96% on R/A; ha1 21:00 BP 190 / 114; Pulse 89; Resp 20 S; Pulse Ox 96% on R/A; ha1 22:00 BP 200 / 118; Pulse 87; Resp 18 S; Pulse Ox 97% on R/A; ha1 22:50 BP 171 / 98; Pulse 93; Resp 18 S; Pulse Ox 98% on R/A; ha1 18:07 Body Mass Index 40.69 (136.08 kg, 182.88 cm) jb4 18:07 Pain Scale: Adult jb4 ED Course: 17:01 Patient arrived in ED. al6 17:02 Benjamin Zaragoza MD is Attending Physician. rt 18:10 Triage completed. jb4 18:10 Arm band placed on right wrist. jb4 18:14 Xiao Evans, RN is Primary Nurse. db 19:00 Patient has correct armband on for positive identification. Allergy band placed. Bed in ha1 low position. Call light in reach. Side rails up X2. 19:00 Provided Education on: plan of care . ha1 19:00 First set of blood cultures drawn. db 19:15 Initial lab(s) drawn, by md, sent to lab. Second set of blood cultures drawn. Inserted db saline lock: 20 gauge in left wrist, using aseptic technique. Blood collected. Flushed with 10 mL NS. 19:16 EKG done, by ED staff, reviewed by Benjamin Zaragoza MD. sa1 19:47 Nelli Scott, RN is Primary Nurse. ha1 20:02 Prince Delgado MD is Hospitalizing Provider. rt 20:50 Assisted to bathroom. ha1 21:20 Assisted to bathroom. ha1 22:00 Assisted to bathroom. ha1 23:08 No provider procedures requiring assistance completed. ha1 23:08 Patient admitted, IV remains in place. ha1 Administered Medications: 20:00 Drug: NS 0.9% IV 1000 ml IV at 1000 ml once; to be given as a bolus over 60 minutes ha1 Route: IV; Rate: 1000 ml; Site: left wrist; 23:00 Follow up: Response: No adverse reaction; IV Status: Completed infusion; IV Intake: ha1 1000ml 20:02 Drug: Ondansetron IVP 4 mg IVP once; over 2 minutes Route: IVP; Site: left wrist; ha1 20:30 Follow up: Response: No adverse reaction; Marked relief of symptoms ha1 20:04 Drug: morphine IVP or IV 4 mg IVP once over 4 mins Route: IVP; Infused Over: 4 mins; ha1 Site: left wrist; 20:30 Follow up: Response: No adverse reaction; Pain is decreased; RASS: Alert and Calm (0) ha1 20:11 Drug: Cefepime IVPB 2 grams IVPB at 200 ml/hr once over 30 mins; (mix in NS 100 mL) ha1 Route: IVPB; Rate: 200 ml/hr; Infused Over: 30 mins; Site: left wrist; 20:40 Follow up: Response: No adverse reaction; IV Status: Completed infusion ha1 21:49 Drug: vancoMYCIN IVPB 1 grams IVPB once over 2 hrs Route: IVPB; Infused Over: 2 hrs; ha1 Site: left antecubital; 23:28 Follow up: Response: No adverse reaction; IV Status: Completed infusion; IV Intake: ha1 250ml Medication: 23:05 VIS not applicable for this client. ha1 Intake: 23:00 IV: 1000ml; Total: 1000ml. ha1 23:28 IV: 250ml; Total: 1250ml. ha1 Outcome: 20:03 Decision to Hospitalize by Provider. rt 23:08 Admitted to Med/surg accompanied by mari, via wheelchair, room 222, with chart, ha1 23:08 Condition: stable 23:08 Instructed on the need for admit, Demonstrated understanding of instructions, 23:29 Patient left the ED. ha1 Signatures: Geovany Sky RN RN jb4 Nelli Scott RN RN Xiao Vega RN RN db Benjamin Zaragoza MD MD rt Sultan najma Lorenzana Alissa al6
--- NOTE | 2024-07-31 20:04 | EDPHYS ---
Physician Documentation [facility] Name: Jorge Estrada Age: 58 yrs Sex: Male : 1965 Arrival Date: 07/31/2024 Time: 16:59 Bed 18 Private MD: ED Physician Benjamin Zaragoza HPI: 07/31 18:50 This 58 yrs old Male presents to ER via Ambulatory with complaints of leg infection. rt 18:50 Patient was sent to the ED by Dr. Tapia for bilateral lower extremity wounds with rt infections. Was reportedly diaphoretic, appeared to be septic in the office. Reports worsening pain to the area. Denies other acute complaints, symptoms are moderate in severity, no other aggravating or alleviating factors.. Historical: - Allergies: 18:10 No Known Drug Allergies; jb4 - PMHx: 18:10 Anxiety; diabetes mellitus; Hypertensive disorder; jb4 - PSHx: 18:10 debridement of leg ulcers; hernia repair; jb4 - Immunization history:: Adult Immunizations up to date. - Infectious Disease History:: Denies. - Social history:: Smoking status: Patient reports the use of cigarette tobacco products, smokes one-half pack cigarettes per day. - Family history:: not pertinent. ROS: 18:50 Cardiovascular: Negative for chest pain, palpitations, and edema, Respiratory: Negative rt for shortness of breath, cough, wheezing, and pleuritic chest pain, Abdomen/GI: Negative for abdominal pain, nausea, vomiting, diarrhea, and constipation, Neuro: Negative for headache, weakness, numbness, tingling, and seizure, 18:50 Constitutional: Positive for body aches, chills, 18:50 Skin: Positive for Wounds, cellulitis, Exam: 18:50 Constitutional: This is a well developed, well nourished patient who is awake, alert, rt and in no acute distress. Head/Face: Normocephalic, atraumatic. Chest/axilla: Normal chest wall appearance and motion. Nontender with no deformity. No lesions are appreciated. Cardiovascular: Regular rate and rhythm with a normal S1 and S2. No gallops, murmurs, or rubs. Normal PMI, no JVD. No pulse deficits. Respiratory: Lungs have equal breath sounds bilaterally, clear to auscultation and percussion. No rales, rhonchi or wheezes noted. No increased work of breathing, no retractions or nasal flaring. Abdomen/GI: Soft, non-tender, with normal bowel sounds. No distension or tympany. No guarding or rebound. No evidence of tenderness throughout. Neuro: Awake and alert, GCS 15, oriented to person, place, time, and situation. Cranial nerves II-XII grossly intact. Motor strength 5/5 in all extremities. Sensory grossly intact. Cerebellar exam normal. Normal gait. 18:50 Musculoskeletal/extremity: Wounds noted to the bilateral lower extremities with scant amount of purulence noted. 19:30 ECG was reviewed by the Attending Physician. rt Vital Signs: 18:07 BP 197 / 113; Pulse 84; Resp 16; Temp 99.4(O); Pulse Ox 97% on R/A; Weight 136.08 kg jb4 (R); Height 6 ft. 0 in. (R); Pain 2/10; 20:11 BP 189 / 117; Pulse 83; Resp 19 S; Temp 97.9(O); Pulse Ox 96% on R/A; ha1 21:00 BP 190 / 114; Pulse 89; Resp 20 S; Pulse Ox 96% on R/A; ha1 22:00 BP 200 / 118; Pulse 87; Resp 18 S; Pulse Ox 97% on R/A; ha1 22:50 BP 171 / 98; Pulse 93; Resp 18 S; Pulse Ox 98% on R/A; ha1 18:07 Body Mass Index 40.69 (136.08 kg, 182.88 cm) jb4 18:07 Pain Scale: Adult jb4 MDM: 17:54 Medical Screening Exam initiated rt 20:05 Differential Diagnosis Cellulitis, chronic wounds, sepsis. Data reviewed: vital signs, rt nurses notes, lab test result(s), EKG. Consideration of Admission/Observation Patient was admitted/placed on observation. Management of patient was discussed with the following: Membership Sales Advisor: Dr. Tapia will debride tomorrow. I considered the following discharge prescriptions or medication management in the emergency department Medications were administered in the Emergency Department. See MAR. Test considered but Not performed: CT: Do not suspect necrotizing fasciitis, CT scan is not indicated. Care significantly affected by the following chronic conditions: Diabetes, Hypertension. Counseling: I had a detailed discussion with the patient and/or guardian regarding the historical points, exam findings, and any diagnostic results supporting the discharge/admit diagnosis, lab results, the need for further work-up and treatment in the hospital. Response to treatment: There is no appreciated change of the patient's symptoms at this time. 07/31 18:27 Order name: Blood Culture Adult (2) rt 07/31 18:27 Order name: CBC with Diff; Complete Time: 19:37 rt 07/31 18:27 Order name: CMP; Complete Time: 19:55 rt 07/31 18:27 Order name: Lactate w/ 2H reflex if indic.; Complete Time: 19:55 rt 07/31 18:27 Order name: Protime (+inr); Complete Time: 19:49 rt 07/31 18:27 Order name: Ptt, Activated; Complete Time: 19:49 rt 07/31 20:51 Order name: Basic Metabolic Panel EDMS 07/31 20:51 Order name: Basic Metabolic Panel EDMS 07/31 20:51 Order name: CBC with Automated Diff EDMS 07/31 20:51 Order name: CBC with Automated Diff EDMS 07/31 20:51 Order name: Lipid Profile EDMS 07/31 20:51 Order name: Lipid Profile EDMS 07/31 18:27 Order name: Accucheck; Complete Time: 20:12 rt 07/31 18:27 Order name: Cardiac monitoring; Complete Time: 19:48 rt 07/31 18:27 Order name: EKG - Nurse/Tech; Complete Time: 19:48 rt 07/31 18:27 Order name: IV Saline Lock - Large Bore; Complete Time: 19:19 rt 07/31 18:27 Order name: Labs collected and sent; Complete Time: 19:19 rt 07/31 18:27 Order name: O2 Per Protocol; Complete Time: 19:48 rt 07/31 18:27 Order name: O2 Sat Monitoring; Complete Time: 19:48 rt 07/31 18:27 Order name: Vital Signs; Complete Time: 19:48 rt EC:30 Rate is 83 beats/min. Rhythm is regular, Normal Sinus Rhythm with No ectopy, Right rt bundle branch block. QRS [place] is Normal. MI interval is normal. QRS interval is normal. QT interval is normal. No Q waves. T waves are Normal. No ST changes noted. Interpreted by me. Administered Medications: 20:00 Drug: NS 0.9% IV 1000 ml IV at 1000 ml once; to be given as a bolus over 60 minutes ha1 Route: IV; Rate: 1000 ml; Site: left wrist; 23:00 Follow up: Response: No adverse reaction; IV Status: Completed infusion; IV Intake: ha1 1000ml 20:02 Drug: Ondansetron IVP 4 mg IVP once; over 2 minutes Route: IVP; Site: left wrist; ha1 20:30 Follow up: Response: No adverse reaction; Marked relief of symptoms ha1 20:04 Drug: morphine IVP or IV 4 mg IVP once over 4 mins Route: IVP; Infused Over: 4 mins; ha1 Site: left wrist; 20:30 Follow up: Response: No adverse reaction; Pain is decreased; RASS: Alert and Calm (0) ha1 20:11 Drug: Cefepime IVPB 2 grams IVPB at 200 ml/hr once over 30 mins; (mix in NS 100 mL) ha1 Route: IVPB; Rate: 200 ml/hr; Infused Over: 30 mins; Site: left wrist; 20:40 Follow up: Response: No adverse reaction; IV Status: Completed infusion ha1 21:49 Drug: vancoMYCIN IVPB 1 grams IVPB once over 2 hrs Route: IVPB; Infused Over: 2 hrs; ha1 Site: left antecubital; 23:28 Follow up: Response: No adverse reaction; IV Status: Completed infusion; IV Intake: ha1 250ml Disposition Summary: 07/31/24 20:03 Hospitalization Ordered Notes: Hospitalization Status: Inpatient Admission rt Provider: Prince Sandy rt Location: Telemetry/[facility] (Inpatient) rt Condition: Fair rt Problem: new rt Symptoms: are unchanged rt Bed/Room Type: Standard rt Room Assignment: 222(07/31/24 21:10) rv1 Diagnosis - Bilateral lower extremity wounds rt Forms: - Medication Reconciliation Form rt - SBAR form rt - Leadership Thank You Letter rt Signatures: Dispatcher [employer] Geovany Alvarez RN RN jb4 Nelli Scott RN RN ha1 Benjamin Zaragoza MD MD rt Alicia Nuñez rv1 Corrections: (The following items were deleted from the chart) 21:10 20:03 rt rv1
[2024-07-31] MEDS ORDERED: ONDANSETRON 4 MG/2 ML VIAL IV PRN (20:47)
--- NOTE | 2024-07-31 20:55 | P.HP ---
Certification for Inpatient Patient admitted to: Inpatient With expected LOS: >2 Midnights Practitioner: I am a practitioner with admitting privileges, knowledge of patient current condition, hospital course, and medical plan of care. Services: Services provided to patient in accordance with Admission requirements found in Title 42 Section 412.3 of the Code of Federal Regulations Patient History Date of Service: 07/31/24 Reason for admission: Bilateral wound cellulitis History of Present Illness: Patient is a 58-year-old male with morbid obesity, hypertension and type 2 diabetes mellitus.. He has chronic leg wounds that has been surgically addressed by Dr. Robles in the past. He underwent bilateral debridement of calf nonhealing wounds in June 2024. He now returns to the ER due to concern for leg infection. Patient was actually sent here by Dr. Robles from general surgery. He is having bilateral leg pain and diaphoresis. He appeared septic in the office. During my evaluation, patient was alert and awake. Was complaining of bilateral leg pain. Hypertensive with SBP of 186 mmHg. Allergies No Known Drug Allergies Allergy (Verified 06/04/24 15:11) Unknown Home Medications: ALPRAZolam [Xanax] 0.5 mg PO BID PRN 06/04/24 Atenolol [Tenormin] 100 mg PO DAILY 06/04/24 Hydralazine HCl 100 mg PO BID 06/04/24 Losartan Potassium [Cozaar] 100 mg PO DAILY 06/04/24 Metformin HCl [Glucophage] 500 mg PO BIDWM 06/04/24 Tamsulosin HCl [Flomax] 0.4 mg PO DAILY 06/04/24 hydroCHLOROthiazide [Hydrodiuril] 25 mg PO DAILYPRN PRN 06/04/24 Physical Examination - Physical Exam General: Alert, Acute distress, Obese HEENT: Atraumatic, Normocephalic Respiratory: Clear to auscultation bilaterally, Normal air movement Cardiovascular: No edema, Normal pulses, Regular rate/rhythm, Normal S1 S2 Integumentary: Other ( both legs are wrapped) Neurological: Normal speech - Studies Laboratory Data (last 24 hrs) 07/31/24 07/31/24 07/31/24 19:15 19:15 19:15 WBC 13.30 H Hgb 11.3 L Hct 34.6 L Plt Count 350 PT 13.6 H INR 1.30 APTT 29.7 Sodium 139 Potassium 3.5 BUN 24 H Creatinine 1.05 Glucose 118 H Total Bilirubin 0.3 AST 25 ALT 33 Alkaline Phosphatase 82 Assessment and Plan - Problems (Diagnosis) (1) Wound cellulitis after surgery Current Visit: Yes Status: Acute (2) Hypertension Current Visit: Yes Status: Acute (3) Diabetes mellitus Current Visit: Yes Status: Acute (4) Morbid obesity Current Visit: Yes Status: Acute - Plan Assessment Patient is a 58-year-old male with a past medical history of hypertension, diabetes mellitus, and nonhealing lower extremity wounds. He has required debridement in the past both lower extremity calfs. He now returns due to concern for leg infection. Patient is having increased pain. He is also diaphoretic. Bilateral leg with cellulitis Type 2 diabetes mellitus Hypertension Morbid obesity Plan: Will admit inpatient with telemetry Start patient on vancomycin and levofloxacin for wound cellulitis Multimodal pain regimen Consult general surgery Resume antihypertensive regimen Patient is full code - Advance Directives Does patient have a Living Will: No Does patient have a Durable POA for Healthcare: No
[2024-07-31] MEDS ORDERED: VANCOMYCIN 1 GM in NA CHLORIDE 0.9% 250 ML IVPB SCH (21:00)
[2024-07-31] MEDS ORDERED: HYDROMORPHONE HCL 1 MG/ML INJ ONE (21:55)
[2024-07-31] MEDS ORDERED: HYDRALAZINE HCL 20 MG/ML VIAL ONE (21:56)
[2024-07-31] MEDS: HYDROMORPHONE HCL 1 MG/ML INJ IV PRN (22:00)
[2024-07-31] MEDS: HYDRALAZINE HCL 20 MG/ML VIAL IV PRN (22:04)
[2024-07-31] MEDS ORDERED: LORazepam 2 MG/ML VIAL ONE (23:01)
[2024-07-31] MEDS: LORazepam 2 MG/ML VIAL IV PRN (23:03)
[2024-08-01] MEDS: NA CHLORIDE 0.9% 500 ML ONE
[2024-08-01] MEDS: VANCOMYCIN 1 GM/VIAL ONE
[2024-08-01] MEDS: LABETALOL 20 MG/4ML SYRINGE IV ONE (00:25)
[2024-08-01] MEDS: VANCOMYCIN 2 GM in NA CHLORIDE 0.9% 500 ML IVPB ONE (00:27)
[2024-08-01] MEDS: Levofloxacin500mg IV 500 MG/100 ML BAG IV SCH (00:31)
[2024-08-01] MEDS: atenoloL 50 MG TAB PO SCH (01:55)
[2024-08-01 01:57] VITALS: BMI 38.9
[2024-08-01] MEDS: HYDRALAZINE HCL 25 MG TABLET PO SCH (01:57)
[2024-08-01] MEDS: LOSARTAN POTASSIUM 50 MG TABLET PO SCH (01:57)
[2024-08-01] MEDS: MORPHINE 2 MG/ML SYR IV ONE (02:58)
[2024-08-01] MEDS: NA CHLORIDE 0.9% 1,000 ML IV SCH (02:59)
[2024-08-01] MEDS: HYDRALAZINE HCL 20 MG/ML VIAL IV PRN (04:54)
[2024-08-01] MEDS ORDERED: D10W 125 ML IV PRN (07:29)
[2024-08-01] MEDS ORDERED: GLUCAGON 1 MG/VIAL IM PRN (07:29)
[2024-08-01] MEDS: INSULIN REGULAR (HUMAN) 100 UNIT/ML SQ SCH (07:30)
[2024-08-01] MEDS: NIFEDIPINE XL 30 MG TABLET PO SCH (08:50)
[2024-08-01] MEDS: TAMSULOSIN 0.4 MG SR CAP PO SCH (08:50)
[2024-08-01] MEDS: CHLORTHALIDONE 25 MG TAB PO SCH (08:51)
[2024-08-01] MEDS: ALPRAZOLAM 1 MG TABLET PO ONE ×2 (08:59→17:31)
[2024-08-01] MEDS ORDERED: atenoloL 50 MG TAB PO SCH (09:00)
[2024-08-01 09:04] LABS: Absolute Basophils 0.1 K/uL (0-0.5); Absolute Eosinophils 0.1 K/uL (0-0.5); Absolute Lymphocytes (CBC) 1.4 K/uL (0.7-4.9); Absolute Monocytes 1.2 K/uL (0.1-1.3); Absolute Neutrophil 15.4 K/uL (1.8-8.0); Basophils % 0.6 % (0-1.3); Eosinophils % 0.3 % (0-4.4); Hematocrit 34.2 % (39.6-49.0); Hemoglobin 11.1 g/dL (13.6-17.9); Lymphocytes % 7.7 % (15.3-44.8); MCH 27.9 pg (27.0-35.0); MCHC 32.5 g/dL (32.0-36.0); MCV 85.9 fL (80-100); MPV 8.7 fL (7.6-11.3); Monocytes % 6.5 % (3.3-12.3); Neutrophils % 84.9 % (41.7-73.7); Platelets 332 thou/uL (152-406); RBC Red Blood Cell Count 3.99 M/uL (4.33-5.43)
[2024-08-01 09:23] LABS: Anion Gap 9.6 mEq/L (5.0-15.0); Potassium 3.6 mEq/L (3.5-5.1)
[2024-08-01] MEDS: VANCOMYCIN 2 GM in NA CHLORIDE 0.9% 500 ML IVPB SCH (11:53)
--- NOTE | 2024-08-01 13:09 | P.PN ---
Subjective Date of Service: 08/01/24 Chief Complaint: Bilateral wound cellulitis Subjective: No new changes Patient complaining of bilateral leg pain, scheduled for surgical debridement today, he stated he recently diagnosed with diabetes, taking 500 mg metformin daily, does not check blood sugar at home Review of Systems Other: Consitutional; fever(-), chills (-), rigor(-), night sweat(-), unintentional weight loss(-), malaise (+) HEENT; diplopia (-), rhinorrhea (-), epistaxis (-), otorrhea (-), otalgia (-) Respiratory; shortness of breath (-), wheezing (-), cough (-), sputum (-), pleuritic chest pain (-) Cardiovascular; chest pain (-), peripheral edema (-), paroxysmal nocturnal dyspnea (-), orthopnea (-) Gastrointestinal; nausea (-), vomiting (-), abdominal pain (-), diarrhea (-), constipation (-), melena (-), hematochezia (-) Genitourinary; urinary frequency (-), dysuria (-), urgency (-), flank pain (-), gross hematuria (-), incontinence (-) Skin; rash (+), pruritus (-), 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 General: Morbidly obese, not acutely ill looking, in no apparent distress,. HEENT: Normocephalic, atraumatic, nonicteric sclera, nonanemic conjunctive. Neck: Supple, without JVD or goiter or thyroid mass. Respiratory: Normal breathing effort, clear to auscultation bilaterally, no crackles no wheezing or rhonchi. Cardiovascular: Distant heart sound no murmur no gallop. Gastrointestinal: Normal bowel sounds,distended, nontender, No ascites, , No masses, no hepatosplenomegaly. Extremities : No clubbing, No peripheral edema, both lower extremity in dressing, tender to touch, warm, no purulent discharge or bleeding noted on the dressing. Integumentary: No rashes, petechia, suspected lesions. Lymphatics: No axilla or cervical lymphadenopathy. Neurology; alert awake oriented x3, no focal neurologic deficit, normal affection . mood and behavior. - Studies Laboratory Data (last 24 hrs) 07/31/24 07/31/24 07/31/24 19:15 19:15 19:15 WBC 13.30 H Hgb 11.3 L Hct 34.6 L Plt Count 350 PT 13.6 H INR 1.30 APTT 29.7 Sodium 139 Potassium 3.5 BUN 24 H Creatinine 1.05 Glucose 118 H Total Bilirubin 0.3 AST 25 ALT 33 Alkaline Phosphatase 82 Assessment And Plan - Plan Patient is a 58-year-old male with a past medical history of hypertension, diabetes mellitus, and nonhealing lower extremity wounds. He has required debridement in June 2024. He now returns due to concern for leg infection. Patient is having increased pain. #1 chronic nonhealing wound with cellulitis of both lower extremity No sepsis, scheduled for surgical debridement by general surgeon, case discussed with Dr. Lyons, continue empiric antibiotics with IV vancomycin and levofloxacin, will follow surgical culture, pain control with IV analgesics #2 Type 2 diabetes mellitus Random blood sugar 118, I will continue low-dose corrective insulin and diabetic diet #3 hypertension Nifedipine, losartan resumed, IV hydralazine added, titrate dose as needed DVT prophylaxis; contraindicated to anticoagulation for surgical intervention
[2024-08-01] MEDS ORDERED: LIDOCAINE HCL/EPINEPHRINE 20 ML MDV ONE (14:16)
[2024-08-01] MEDS ORDERED: MIDAZOLAM HCL 2 MG/2 ML INJ ONE (14:28)
[2024-08-01] MEDS ORDERED: propofoL 200 MG/20 ML VIAL IV ONE ×2 (14:28→15:29)
[2024-08-01] MEDS ORDERED: FENTANYL CITR 100 MCG/2 ML ONE (14:28)
[2024-08-01] MEDS ORDERED: LIDOCAINE 1% MPF 5 ML VIAL ONE (14:28)
[2024-08-01] MEDS ORDERED: LIDOCAINE 2% MPF 5 ML VIAL ONE (15:12)
[2024-08-01] MEDS: NA CHLORIDE 0.9% 1,000 ML ONE (15:35)
--- NOTE | 2024-08-01 15:50 | P.OP ---
Preoperative diagnosis: Bilateral lower extremity and feet open chronic wounds Postoperative diagnosis: Bilateral lower extremity and feet open chronic wounds Primary procedure: Debridement of Bilateral lower extremity and feet open chronic wounds Secondary procedure: Pulse Lavage of Bilateral lower extremity and feet open chronic wounds Anesthesia: GETA Estimated blood loss: <5cc Specimen: Cultures + Debridement Tissue Findings: Bilateral lower extremity and feet open chronic wounds ~ 30% of each LE Complications: None Transferred to: Recovery Room Condition: Good
--- NOTE | 2024-08-02 01:11 | OP ---
Date of Procedure: 08/01/2024 Surgeon: Jai Tapia MD, Preoperative Diagnosis: Bilateral lower extremity and bilateral feet open chronic wounds. Postoperative Diagnosis: Bilateral lower extremity and bilateral feet open chronic wounds. Procedures: 1. Debridement of bilateral lower extremity and bilateral feet open wounds. 2. Pulse lavage of bilateral lower extremity feet and chronic lower extremity wounds. Anesthesia: General endotracheal. Estimated Blood Loss: 5 cc. Specimen: Culture sent both aerobic and anaerobic speciation and debridement tissue. Findings: Bilateral lower extremity feet and open chronic wounds approximately 20% to 30% of each bi lateral lower extremity, predominantly in the calf area involving approximately 30% of the calf surfa ce area bilaterally. It was involved with irregular bilateral wounds extending to the subcutaneous f at and bilateral areas as well as several toes of bilateral feet. Complications: None. Disposition: The patient was transferred to recovery room in good condition. Procedure In Detail: After informed consent was obtained, the patient was brought to the operating r oom, prepped and draped in the usual sterile fashion after adequate anesthesia was achieved. I used a combination of sharp dissection as well as curette to remove all nonviable tissue from the bilatera l chronic lower extremity wounds as described above. After all nonviable tissue was removed down to granular healthy tissue, I irrigated, the area was pulse lavaged circumferentially around until all t he area was cleansed. We then circumferentially wrapped bilateral lower extremities with Vashe inclu ding the toes which were involved and debrided prior as described similarly with Vashe, Kerlix, and A ce bandage wrapped and elevated. The patient tolerated the procedure without incident or complicatio n, transferred to PACU in good condition. All counts were correct at the end of the case. TK/MODL Voice ID: [id number] Report ID: [id number]
--- NOTE | 2024-08-02 09:02 | P.PN ---
Subjective Date of Service: 08/02/24 Chief Complaint: Bilateral wound cellulitis This is a Tele-Medicine visit. Verbal consent was obtained prior to the visit. He was seen this morning on rounds. He was falling asleep during interview. When he was woken by nursing staff, he was alert and oriented x 3, responding to que stions appropriately. Per RT, he declined wearing his BiPAP overnight. He denies any concerns this morning. Review of Systems 10-point ROS is otherwise unremarkable General: Other (fatigue) Respiratory: Unremarkable Cardiovascular: Unremarkable Gastrointestinal: Unremarkable Neurological: Unremarkable Physical Examination - Vital Signs Temperature: 100.5 F Blood Pressure: 185/96 Pulse: 94 Respirations: 18 Pulse Ox (%): 96 - Physical Exam General: Alert, In no apparent distress, Oriented x3, Other (intermittently falling asleep) HEENT: Atraumatic Respiratory: Other (no respiratory distress) Neurological: Normal affect Other Physical/Emotional Findings: Exam limited as this is a Tele-Medicine visit Assessment And Plan - Plan # Chronic Bilateral Lower Extremity wounds with Superimposed Cellulitis - Appears non-toxic, but states that he is tired - Per RT, not wearing BiPAP at night (presumed to be needed for obstructive sleep apnea) - Requested ABG. - Lactate = 1.2 - General Surgery consulted and spoke with Dr. Tapia - recs appreciated - s/p wound debridement on 08/01/2024 - Continue vancomycin + levofloxacin - Wound care # Hypertensive Urgency - BP was as high as 220/118 - Goal to correct BP by ~ 20% per 24 hours to reduce risk of relative hypotension and stroke - Increased nifedipine from 30 mg to 60 mg - Continue atenolol, chlorthalidone, hydralazine, tamsulosin - As needed anti-hypertensives # Type II Diabetes Mellitus # Obesity - BMI 39.0 kg/m2 - Correction scale insulin Disposition: Continue IV antibiotics. Obtain ABG to evaluate PCO2 level. Continue with serial neurologic checks - if abnormal, plan to obtain CT head. Appreciate consultant rn recommendations. He will be re-assessed by on-site physician (Dr. Casarez) tomorrow. Rip Dorantes M.D.
[2024-08-02 11:20] LABS: Absolute Basophils 0.1 K/uL (0-0.5); Absolute Eosinophils 0.1 K/uL (0-0.5); Absolute Lymphocytes (CBC) 1.5 K/uL (0.7-4.9); Absolute Neutrophil 14.6 K/uL (1.8-8.0); Basophils % 0.4 % (0-1.3); Eosinophils % 0.6 % (0-4.4); Hematocrit 34.5 % (39.6-49.0); Hemoglobin 11.6 g/dL (13.6-17.9); Lymphocytes % 8.4 % (15.3-44.8); MCH 28.6 pg (27.0-35.0); MCHC 33.6 g/dL (32.0-36.0); MCV 85.1 fL (80-100); MPV 9.2 fL (7.6-11.3); Neutrophils % 84.6 % (41.7-73.7); Platelets 327 thou/uL (152-406); RBC Red Blood Cell Count 4.05 M/uL (4.33-5.43); Red Cell Distribution Width 15.2 % (12.1-15.2)
[2024-08-02 11:35] LABS: Anion Gap 10.2 mEq/L (5.0-15.0); Potassium 3.2 mEq/L (3.5-5.1)
[2024-08-02] MEDS: POTASSIUM CL SA 10 MEQ TAB PO ONE (12:03)
[2024-08-02] MEDS: NIFEDIPINE XL 30 MG TABLET PO ONE (12:03)
--- NOTE | 2024-08-02 12:31 | CON ---
Date of Consultation: 08/01/2024 Brief Hpi: The patient is a 58-year-old male recently seen in my clinic with a history of high blood pressure, diabetes, bilateral lower extremity lymphedema, bilateral lower extremity chronic nonheali ng wounds, noncompliance with treatment plan for wound care, BPH, who presented to my clinic on 07/31 with complaints of pain in bilateral lower extremities and increased drainage. I had used fluoresce nce imaging on his legs in the office and noted there was significant infection of these areas, and a s such, I recommend the patient come to the emergency room for evaluation, debridement and antibiotic s and medical management. The patient came to the emergency room per my recommendations as described . He also had evidence of diaphoresis and complaints of sweatiness, weakness as well. Past Medical History: Significant for diabetes, hypertension, BPH, chronic lymphedema bilateral lowe r extremities, chronic bilateral nonhealing wounds with noncompliance in wound care instructions, anx iety. Allergies: NO KNOWN DRUG ALLERGIES. Home Medications: Include Xanax, Tenormin, hydralazine, Cozaar, Glucophage, Flomax, hydrochlorothiaz diony. Social History: The patient denies smoking, alcohol, or recreational drug use. Review of Systems: A 10 point review of systems other than HPI denies. Physical Examination: General: He is awake, alert, diaphoretic, obese, in mild distress when I saw him. HEENT: Normocephalic. His sclerae are anicteric. His mucous membranes moist. Oropharynx clear. Neck: Supple without JVD. Chest: Normal expansion and excursion. Cardiovascular: Regular rate and rhythm. Pulmonary: Clear to auscultation bilaterally. Abdomen: Soft. Extremities: He has stable bilateral chronic lower extremity [id number] wounds extending to incl ude feet, toes bilaterally, as well as approximately 30% irregular circumferential wounds predominant ly on the posterior calf area taking up approximately 30% of calf surface area in the posterior aspec t with several satellite wounds circumferentially around the legs. They are weeping. There is necro tic tissue. There is fibrin buildup. There is slough and necrosis. Fluoroscopic imaging confirms i nfection in these as well. Laboratory Data: White blood cell count of 18.2, hemoglobin 11.1, hematocrit of 34.2, platelet count is 332, neutrophils 84%. PT 13.6, INR 1.3, PTT is 29.7. Sodium 138, potassium 3.6, chloride 108, c arbon dioxide is 24, BUN 17, creatinine 1.08, glucose 165. Assessment/plan: This is a 58-year-old male who comes in with significant wounds to bilateral lower extremities. 1. IV fluid hydration. 2. Antibiotic coverage. 3. Medical management. 4. I have explained the risks, benefits, and alternatives of debridement of bilateral lower extremiti es, including but not limited to bleeding, infection, damage to surrounding tissue, need for further operation procedures, possible need for amputation in the future, blood clots, heart attack, strokes, other unforeseen complications in the perioperative period. The patient displayed understanding of the above stated plan, agreed to proceed as indicated. JADE/SOFI Voice ID: [id number] Report ID: [id number]
[2024-08-02 12:41] LABS: Blood Gas Oxyhemoglobin 92.3 % (94-97); Blood O2 Saturation 95.2 % (92-98.5)
[2024-08-02 12:42] LABS: Arterial Blood Carboxyhemoglob 1.3 % (0-1.5); Blood Gas THB 12.2 g/dl (12-18)
[2024-08-03 06:15] LABS: Absolute Basophils 0.2 K/uL (0-0.5); Absolute Eosinophils 0.3 K/uL (0-0.5); Absolute Lymphocytes (CBC) 1.3 K/uL (0.7-4.9); Absolute Monocytes 1.1 K/uL (0.1-1.3); Absolute Neutrophil 12.5 K/uL (1.8-8.0); Basophils % 1.3 % (0-1.3); Eosinophils % 1.9 % (0-4.4); Hemoglobin 11.9 g/dL (13.6-17.9); Lymphocytes % 8.5 % (15.3-44.8); MCH 28.3 pg (27.0-35.0); MCHC 32.9 g/dL (32.0-36.0); MCV 85.9 fL (80-100); MPV 8.7 fL (7.6-11.3); Neutrophils % 81.3 % (41.7-73.7); Platelets 358 thou/uL (152-406); Red Cell Distribution Width 14.8 % (12.1-15.2)
[2024-08-03 06:39] LABS: Albumin 2.3 g/dL (3.4-5.0); Albumin/Globulin Ratio 0.5 (1.1-1.8); Anion Gap 8.2 mEq/L (5.0-15.0); Bilirubin Total 0.5 mg/dL (0.2-1.0); Globulin 5.1 g/dL (2.3-3.5); Magnesium 2.2 mg/dL (1.6-2.4); Potassium 3.2 mEq/L (3.5-5.1); Protein, Total 7.4 g/dL (6.4-8.2)
[2024-08-03] MEDS ORDERED: NIFEDIPINE XL 30 MG TABLET PO SCH (09:00)
[2024-08-03] MEDS: NIFEDIPINE XL 60 MG TABLET PO SCH (09:22)
--- NOTE | 2024-08-03 12:06 | P.PN ---
Subjective Date of Service: 08/03/24 Chief Complaint: Bilateral wound cellulitis Subjective: Improving (Patient is improving status post debridement of wounds on his left leg no new complaint) Review of Systems Unremarkable Physical Examination - Vital Signs Temperature: 98.9 F Blood Pressure: 167/85 Pulse: 90 Respirations: 22 Pulse Ox (%): 96 - Physical Exam General: Alert, Oriented x3 Neck: Supple Respiratory: Clear to auscultation bilaterally Cardiovascular: Other (Both feet are wrapped in bandages) Other Physical/Emotional Findings: Exam limited as this is a Tele-Medicine visit Assessment And Plan - Current Problems (Diagnosis) (1) Bilateral lower leg cellulitis Current Visit: Yes Status: Acute Plan: Is 58 years of age poorly controlled diabetic hypertensive admitted with bilateral lower extremity cellulitis s/p debridement continue with antibiotics white count is declining patient's blood pressure is elevated to be started on metformin A1c is pending spironolactone for high blood pressure Monus isolated from the left wound can change to p.o. patient is hypokalemic avoid chlorthalidone and started on spironolactone (2) Hypertension Current Visit: Yes Status: Acute Plan: Change to spironolactone DC chlorthalidone and is hypokalemic has resistant hypertension Qualifiers: Hypertension type: primary hypertension Qualified Code(s): I10 - Essential (primary) hypertension
[2024-08-03] MEDS: SPIRONOLACTONE 25 MG TABLET PO SCH (14:14)
[2024-08-03] MEDS: levoFLOXacin 750 MG TAB PO SCH (14:15)
[2024-08-03] MEDS: METFORMIN HCL 500 MG TAB PO SCH (18:33)
[2024-08-04 07:23] LABS: Absolute Basophils 0.1 K/uL (0-0.5); Absolute Eosinophils 0.5 K/uL (0-0.5); Absolute Lymphocytes (CBC) 1.5 K/uL (0.7-4.9); Absolute Monocytes 1.3 K/uL (0.1-1.3); Absolute Neutrophil 13.3 K/uL (1.8-8.0); Basophils % 0.7 % (0-1.3); Eosinophils % 3.1 % (0-4.4); Hematocrit 37.5 % (39.6-49.0); Hemoglobin 12.2 g/dL (13.6-17.9); Lymphocytes % 8.8 % (15.3-44.8); MCHC 32.5 g/dL (32.0-36.0); MCV 86.3 fL (80-100); MPV 8.5 fL (7.6-11.3); Monocytes % 7.8 % (3.3-12.3); Neutrophils % 79.6 % (41.7-73.7); Nucleated Red Blood Cells % 0.1 % (0-0); Platelets 423 thou/uL (152-406); RBC Red Blood Cell Count 4.35 M/uL (4.33-5.43); Red Cell Distribution Width 15.2 % (12.1-15.2)
[2024-08-04 07:50] LABS: Albumin 2.4 g/dL (3.4-5.0); Albumin/Globulin Ratio 0.5 (1.1-1.8); Anion Gap 10.6 mEq/L (5.0-15.0); Bilirubin Total 0.5 mg/dL (0.2-1.0); Globulin 5.3 g/dL (2.3-3.5); Potassium 3.6 mEq/L (3.5-5.1); Protein, Total 7.7 g/dL (6.4-8.2)
[2024-08-04] MEDS: Mupirocin NASAL 2 APPL/1 GM TUBE NAS SCH (09:44)
[2024-08-04] MEDS: VANCOMYCIN 1.5 GM in NA CHLORIDE 0.9% 500 ML IVPB SCH (09:58)
[2024-08-04 10:34] LABS: Blood Morphology Comment NOT SEEN (NOT SEEN); Differential Total Cells Count 100; Eosinophils 3 % (0-3); Lymphocytes 8 % (15-42); Monocytes 7 % (0-10); Myelocytes 1 % (0-0); Platelet Estimate INCR; Segmented Neutrophils 81 % (40-80)
[2024-08-04] MEDS: HYDROCODONE/APAP 7.5/325 MG TAB PO ONE (13:38)
--- NOTE | 2024-08-04 17:36 | P.PN ---
Date of Service: 08/04/24 Subjective bilateral leg pain, scheduled for surgical debridement he stated he recently diagnosed with diabetes, Review of Systems 10 point review of system negative unless listed in HPI Physical Examination - Vital Signs reviewed - Physical Exam General: Alert, In no apparent distress, Oriented x3, drowsy, responds to verbal, HEENT: Atraumatic, Normocephalic, PERRLA Neck: Supple, 2+ carotid pulse no bruit, JVD not distended Respiratory: Normal air movement, equal unlabored Cardiovascular: Normal pulses, Regular rate/rhythm, Normal S1 S2 Capillary refill: <2 Seconds Gastrointestinal: Normal bowel sounds, Musculoskeletal: Bilateral lower extremity weakness, Integumentary: Bilateral lower extremity edema, cellulitis, wrap with dressing, Neurological: Normal speech, Normal strength at 5/5 x4 extr, Cranial nerves 3-12 intact Assessment And Plan - Plan Patient is a 58-year-old male with a past medical history of hypertension, diabetes mellitus, and nonhealing lower extremity wounds. He has required debridement in June 2024. He now returns due to concern for leg infection. Patient is having increased pain. acute on chronic nonhealing wound with cellulitis of both lower extremity Tobacco use surgical debridement by general surgeon, continue empiric antibiotics with IV vancomycin and levofloxacin, will follow surgical culture, pain control with IV analgesics Educated on tobacco cessation Infectious disease consult Wound care, cleanse with Vashe, Silvadene, bilateral lower extremity daily, dry dressing Plan to discharge home with home health, with IV antibiotics, wound Rollator ordered for home DME Type 2 diabetes mellitus Random blood sugar 118, I will continue low-dose corrective insulin and diabetic diet hypertensive urgency Nifedipine, losartan resumed, IV hydralazine added, titrate dose as needed DVT prophylaxis; Brilinta Disposition plan to discharge home with home health with IV antibiotics
[2024-08-04] MEDS: VANCOMYCIN 500 MG/VIAL ONE (21:13)
[2024-08-04] MEDS: VANCOMYCIN 1 GM/VIAL ONE (21:21)
[2024-08-04] MEDS: WATER FOR INJ,STERILE 30 ML ONE (21:22)
[2024-08-04] MEDS: NA CHLORIDE 0.9% 500 ML ONE (21:22)
[2024-08-05 05:18] LABS: Absolute Basophils 0.3 K/uL (0-0.5); Absolute Eosinophils 0.7 K/uL (0-0.5); Absolute Monocytes 1.3 K/uL (0.1-1.3); Absolute Neutrophil 13.8 K/uL (1.8-8.0); Basophils % 1.4 % (0-1.3); Hemoglobin 12.4 g/dL (13.6-17.9); Lymphocytes % 11.1 % (15.3-44.8); MCH 28.1 pg (27.0-35.0); MCHC 32.6 g/dL (32.0-36.0); MCV 86.3 fL (80-100); MPV 8.4 fL (7.6-11.3); Neutrophils % 76.5 % (41.7-73.7); Platelets 422 thou/uL (152-406); Red Cell Distribution Width 15.2 % (12.1-15.2)
[2024-08-05 05:51] LABS: Albumin 2.5 g/dL (3.4-5.0); Albumin/Globulin Ratio 0.5 (1.1-1.8); Bilirubin Total 0.4 mg/dL (0.2-1.0); Globulin 5.3 g/dL (2.3-3.5); Protein, Total 7.8 g/dL (6.4-8.2)
[2024-08-05] MEDS: CEFEPIME 2 GM in NA CHLORIDE 0.9% 100 ML IV SCH (09:00)
[2024-08-05] MEDS: SILVER SULFADIAZINE 1% 25 GM TOP SCH (09:00)
--- NOTE | 2024-08-05 12:31 | EKG ---
Test Date: 2024-07-31 Test Time: 19:17:42 Dietary Services Manager: MEASUREMENT RESULTS: Intervals: Rate: 83 TX: 156 QRSD: 142 QT: 412 QTc: 484 Greig: P: 38 TX: 156 QRS: 27 T: 30 INTERPRETIVE STATEMENTS: Normal sinus rhythm Right bundle branch block Abnormal ECG Compared to ECG 06/04/2024 16:36:04 Left ventricular hypertrophy no longer present Electronically Signed On 08-05-24 12:21:28 PHARMACY DISTRICT MANAGER by Marcus Grant
--- NOTE | 2024-08-05 13:35 | P.PN ---
Subjective Date of Service: 08/05/24 Chief Complaint: Bilateral wound cellulitis Subjective: Improving (Patient feels significantly better.) Physical Examination - Vital Signs Temperature: 98.1 F Blood Pressure: 143/94 Pulse: 71 Respirations: 22 Pulse Ox (%): 97 - Physical Exam General: Alert, In no apparent distress, Oriented x3, Cooperative Integumentary: Other (Patient continues to have bilateral lower extremity edema, wounds appear clean at this point. No obvious infection evident in the surgical sites at this time.) Other Physical/Emotional Findings: Exam limited as this is a Tele-Medicine visit Assessment And Plan - Plan Patient is a 58-year-old male with complex history of bilateral lower extremity wounds, diabetes smoking. -Continue local wound care with wraps with Vashe damp to dry elevation and compression. Elevate legs is much as possible -Continue IV antibiotics per recommendation of infectious disease specialist. -Continue medical management per his other medical comorbid conditions -Smoking cessation reviewed. Compliance with medical treatment as well as management of his diabetes as described smoking cessation and compliance with dressing changes elevation of bilateral lower extremities.
--- NOTE | 2024-08-05 14:19 | CON ---
History Of Present Illness: This is a 58-year-old male. I was consulted for evaluation of lower ext remity cellulitis. The patient has significant past medical history of morbid obesity, hypertension, type 2 diabetes mellitus, coming in with chronic leg wounds. Seen by surgical team in June 2024 . Patient's left lower extremity cultures are growing Pseudomonas aeruginosa and Proteus mirabilis. Denies any headache, nausea, vomiting, chest pain, abdominal pain, constipation, diarrhea. Past Medical History: As per HPI. Social History: Tobacco positive. Alcohol negative. Family History: Noncontributory. Medications: Levaquin and vancomycin. See MARs for other medications. Allergies: NO KNOWN DRUG ALLERGIES. Review of Systems: A 10-point review was performed. Physical Examination: General: This is a 58-year-old male, sitting in a wheelchair, not in any acute cardiopulmonary distr ess. Vital Signs: Temperature 99.6, pulse 80, respirations 20, blood pressure 163/92. HEENT: Unremarkable. Neck: Supple. Lungs: Basal crackles. Heart: S1, S2. Regular. Abdomen: Soft, nontender. Bowel sounds are present. Extremities: 2+ edema and an Roman wrap with wounds noted. Laboratory Data: WBC 16,000, hemoglobin 12.2, platelets are 423. Chemistry shows BUN of 24, creatin ine 1.2, albumin level is 2.4. Micro data shows Pseudomonas aeruginosa, Proteus mirabilis sensitive to quinolones. Assessment And Plan: 58-year-old male with multiple ulceration with necrotic changes and longstandin g lower extremity edema, possibly lymphedema versus stasis ulceration and stasis dermatitis causing c ellulitis. Continue current treatment. Consider changing to Cipro orally if patient can tolerate. Consider applying Silvadene to the wound site and surgical debridement if necessary. Rule out osteom yelitis. Consider getting bone scan or CT scan of the lower extremity. Keep legs elevated, when pos sible. Tobacco counseling needed. Continue current treatment. We will follow the patient as needed . Thank you for consult. SHANNA/SOFI Voice ID: [id number] Report ID: [id number]
--- NOTE | 2024-08-05 15:54 | PN ---
Subjective: Patient lying in bed. at the bedside. Not in any acute distress. Denies any head ache, nausea, vomiting, chest pain, abdominal pain, constipation, or diarrhea. Objective: Vital Signs: Temperature 98, pulse 70, respirations 18, blood pressure 138/88. Lungs: Basal crackles. Heart: S1, S2. Regular. Abdomen: Soft, nontender. Bowel sounds present. Obese. Extremities: 4+ nonpitting edema. Wounds noted with eschar tissue. Patient has been switched to cefepime from vancomycin and Levaquin. Wound cultures are growing pseud omonas and Proteus mirabilis. Assessment And Plan: Cellulitis of lower extremities, rule out osteomyelitis. Consider getting a lizz ne scan. Continue supportive care. We will follow the patient as needed. Leukocytosis. Anemia of chronic disease. We will follow the patient as needed. NF/MODL Voice ID: [id number] Report ID: [id number]
--- NOTE | 2024-08-05 16:46 | P.PN ---
Date of Service: 08/05/24 Subjective Worsening WBCs today's, will escalate IV antibiotic to cefepime 2 g IV every 8. Continues to go down to small, educated on tobacco cessation Review of Systems 10 point review of system negative unless listed in HPI Physical Examination - Vital Signs reviewed - Physical Exam General: Alert, In no apparent distress, Oriented x3, HEENT: Atraumatic, Normocephalic, PERRLA Neck: Supple, 2+ carotid pulse no bruit, no JVD Respiratory: Normal air movement, equal unlabored Cardiovascular: Normal pulses, Regular rate/rhythm, Normal S1 S2 Capillary refill: <2 Seconds Gastrointestinal: Normal bowel sounds, Musculoskeletal: Bilateral lower extremity weakness, Integumentary: Bilateral lower extremity edema, cellulitis, wrap with dressing, Neurological: Normal speech, Normal strength at 5/5 x4 extr, Assessment And Plan - Plan Patient is a 58-year-old male with a past medical history of hypertension, diabetes mellitus, and nonhealing lower extremity wounds. He has required debridement in June 2024. He now returns due to concern for leg infection. Patient is having increased pain. acute on chronic nonhealing wound with cellulitis of both lower extremity Tobacco use surgical debridement by general surgeon, , will follow surgical culture, pain c ontrol with IV analgesics Educated on tobacco cessation Infectious disease consult Wound care, cleanse with Vashe, Silvadene, bilateral lower extremity daily, dry dressing Plan to discharge home with home health, with IV antibiotics, wound Rollator ordered for home DME Urine cultures positive for Pseudomonas Aeruginsa, Proteus Mirabilis, was pre on continue empiric antibiotics with IV vancomycin and levofloxacin (Escalated to Cefepime 2 gm IV Q8) Type 2 diabetes mellitus Random blood sugar 118, I will continue low-dose corrective insulin and diabetic diet hypertensive urgency Nifedipine, losartan resumed, IV hydralazine added, titrate dose as needed DVT prophylaxis; Brilinta Disposition plan to discharge home with home health with IV antibiotics
--- NOTE | 2024-08-05 18:52 | P.DS ---
Admission Date: 07/31/24 Discharge Date: 08/09/24 Disposition: DC HOME/HOME HEALTH CARE Discharge Condition: GOOD Reason for Admission: Bilateral wound cellulitis Brief History of Present Illness: Patient is a 58-year-old male with morbid obesity, hypertension and type 2 diabetes mellitus.. He has chronic leg wounds that has been surgically addressed by Dr. Robles in the past. He underwent bilateral debridement of calf nonhealing wounds in June 2024. He now returns to the ER due to concern for leg infection. Patient was actually sent here by Dr. Robles from general surgery. He is having bilateral leg pain and diaphoresis. He appeared septic in the office. During my evaluation, patient was alert and awake. Was complaining of bilateral leg pain. Hypertensive with SBP of 186 mmHg. - Physical Exam General: Alert, In no apparent distress, Oriented x3, HEENT: Atraumatic, Normocephalic, PERRLA Neck: Supple, 2+ carotid pulse no bruit, no JVD Respiratory: Normal air movement, equal unlabored Cardiovascular: Normal pulses, Regular rate/rhythm, Normal S1 S2 Capillary refill: <2 Seconds Gastrointestinal: Normal bowel sounds, Musculoskeletal: Bilateral lower extremity weakness, Integumentary: Bilateral lower extremity edema, cellulitis, wrap with dressing, Neurological: Normal speech, Normal strength at 5/5 x4 extr, Hospital Course: 58-year-old male with morbid obesity, hypertension and type 2 diabetes mellitus.. He has chronic leg wounds that has been surgically addressed by Dr. Robles in the past. He underwent bilateral debridement of calf nonhealing wounds in June 2024. He now returns to the ER due to concern for leg infection. Patient was actually sent here by Dr. Robles from general surgery. He is having bilateral leg pain and diaphoresis. Was noted to have acute on chronic bilateral lower extremity cellulitis, treated with IV antibiotics. Wound care, patient is improved, tolerating diet, stable to discharge home with home health Discharge antibiotics Cefepime 2 gm IV Q8) and Cipro p.o. for 14 days, midline placed prior to discharge Wound care, Silvadene cream to bilateral lower extremity daily, Santyl on areas that need debrided status post I&D 08/01, and 08/[address] Cates after discharge, all office for apt noncompliant Instructed to elevate legs bilateral lower extremity to decrease swelling. Patient is Instructed to keep blood glucose log after discharge, take to primary care appointment Discharge home metformin 500 p.o. twice daily with meals Glipizide 5XL mg daily Atenolol 100 mg p.o. daily Procardia 60 mg XL daily Spironolactone 25 mg 1 p.o. daily Ativan as needed for anxiety Flomax 0.4 mg daily Assessment acute on chronic nonhealing wound with cellulitis of both lower extremity-is status post I&D 08/01, and 08/08 Acute on chronic pain secondary to debridement, cellulitis bilateral lower extremity Urine cultures positive for Pseudomonas Aeruginsa, Proteus Mirabilis, was on empiric antibiotics with IV vancomycin and levofloxacin (WBC worsened) (Escalat ed to Cefepime 2 gm IV Q8) Diabetes with hyperglycemia uncontrolled Random blood sugar 118, metformin 500 p.o. twice daily with meals Glipizide 5 mg twice daily hypertensive urgency-improved Nifedipine, losartan resumed, IV hydralazine added, titrate dose as needed Tobacco use, Smoking cessation reviewed. Educated with surgeon on Compliance with medical treatment as well as management of his diabetes as described smoking cessation Instructed on compliance with dressing changes elevation of bilateral lower extremities. Continue home medicines GOAL: Clear understanding of disease process INSTRUCTIONS: Physician Discharge Instructions: -Follow-up with surgery after discharge, call office for appointment -Follow-up with PCP in 1 to 2 weeks -Please call Dr. Cantor at [phone] if any questions regarding hospital stay -Please call nursing station at [phone] if any nursing or medication questions -Return to the emergency room if symptoms worsen Diet: ADA, low sodium Activity: Fall precautions Vital Signs/Physical Exam: Temp Pulse Resp BP Pulse Ox 98.5 F 76 22 H 133/85 95 08/05/24 16:00 08/05/24 16:00 08/05/24 16:00 08/05/24 16:00 08/05/24 16:00 Other Physical/Emotional Findings: Exam limited as this is a Tele-Medicine visit Laboratory Data at Discharge: WBC 18.00 thou/uL (4.3-10.9) H 08/05/24 04:52 Hgb 12.4 g/dL (13.6-17.9) L 08/05/24 04:52 Hct 38.0 % (39.6-49.0) L 08/05/24 04:52 Plt Count 422 thou/uL (152-406) H 08/05/24 04:52 PT 13.6 SECONDS (9.4-12.5) H 07/31/24 19:15 INR 1.30 07/31/24 19:15 APTT 29.7 SECONDS (24.3-36.9) 07/31/24 19:15 Sodium 134 mEq/L (136-145) L 08/05/24 04:52 Potassium 4.0 mEq/L (3.5-5.1) 08/05/24 04:52 BUN 30 mg/dL (7-18) H 08/05/24 04:52 Creatinine 1.24 mg/dL (0.70-1.30) 08/05/24 04:52 Glucose 141 mg/dL (74-106) H 08/05/24 04:52 Magnesium 2.2 mg/dL (1.6-2.4) 08/03/24 05:25 Total Bilirubin 0.4 mg/dL (0.2-1.0) 08/05/24 04:52 AST 32 U/L (15-37) 08/05/24 04:52 ALT 41 U/L (16-61) 08/05/24 04:52 Alkaline Phosphatase 89 U/L (45-117) 08/05/24 04:52 Triglycerides 75 mg/dL (<150) 08/01/24 08:56 Cholesterol 107 mg/dL (<200) 08/01/24 08:56 HDL Cholesterol 48 mg/dL (40-60) 08/01/24 08:56 Cholesterol/HDL Ratio 2.23 08/01/24 08:56 Home Medications: Atenolol [Tenormin] 100 mg PO DAILY 06/04/24 Losartan Potassium [Cozaar] 100 mg PO DAILY 06/04/24 Metformin HCl [Glucophage*] 500 mg PO BIDWM 06/04/24 Tamsulosin HCl [Flomax] 0.4 mg PO DAILY 06/04/24 Blood-Glucose Meter [Blood Glucose Monitoring] 1 each ACHS 30 Days #1 kit 08/07/24 Ciprofloxacin HCl [Cipro 500 MG Tablet] 500 mg PO BID 14 Days #28 tab 08/07/24 Collagenase [Santyl Ointment*] 1 appl TOP DAILY 30 Days #1 tube 08/07/24 Gabapentin [Neurontin*] 100 mg PO BID 30 Days #60 cap 08/07/24 Hydralazine HCl 100 mg PO BID 30 Days #60 tab 08/07/24 Metformin HCl [Glucophage*] 500 mg PO BIDWM 30 Days #60 tab 08/07/24 Nifedipine Xl [Procardia XL*] 60 mg PO DAILY 30 Days #30 tab 08/07/24 Silver Sulfadiazine [Silvadene 1% Cream] 1 appl TOP DAILY 30 Days #3 tube 08/07/24 Spironolactone [Aldactone*] 25 mg PO DAILY 30 Days #30 tab 08/07/24 Tamsulosin [Flomax*] 0.4 mg PO DAILY 30 Days #30 cap 08/07/24 glipiZIDE [Glucotrol*] 5 mg PO BIDWM 30 Days #60 tab 08/07/24 Furosemide [Lasix] 40 mg PO DAILY 30 Days #30 tab 08/09/24 Glipizide [Glipizide Xl] 5 mg PO DAILY 30 Days #30 tab 08/09/24 Oxycodone HCl 5 mg PO DAILY PRN #10 tab 08/09/24 New Medications: Spironolactone [Aldactone*] 25 mg PO DAILY 30 Days #30 tab Blood-Glucose Meter [Blood Glucose Monitoring] 1 each ACHS 30 Days #1 kit Ciprofloxacin HCl [Cipro 500 MG Tablet] 500 mg PO BID 14 Days #28 tab Tamsulosin [Flomax*] 0.4 mg PO DAILY 30 Days #30 cap Glipizide [Glipizide Xl] 5 mg PO DAILY 30 Days #30 tab Metformin HCl [Glucophage*] 500 mg PO BIDWM 30 Days #60 tab glipiZIDE [Glucotrol*] 5 mg PO BIDWM 30 Days #60 tab Hydralazine HCl 100 mg PO BID 30 Days #60 tab Furosemide [Lasix] 40 mg PO DAILY 30 Days #30 tab Gabapentin [Neurontin*] 100 mg PO BID 30 Days #60 cap Oxycodone HCl 5 mg PO DAILY PRN #10 tab PRN Reason: Pain Scale 8-10 (Severe) Nifedipine Xl [Procardia XL*] 60 mg PO DAILY 30 Days #30 tab Collagenase [Santyl Ointment*] 1 appl TOP DAILY 30 Days #1 tube Silver Sulfadiazine [Silvadene 1% Cream] 1 appl TOP DAILY 30 Days #3 tube Physician Discharge Instructions: OK TO DC IV AND DC HOME FOLLOW-UP WITH PRIMARY CARE PROVIDER IN 1-2 WEEKS FOLLOW- UP WITH GENERAL SURGERY IN 1 WEEK RETURN TO THE ER IF SYMPTOMS WORSEN CALL DR. CANTOR AT [phone] IF ANY QUESTIONS REGARDING HOSPITAL STAY. PLEASE CALL THE FLOOR AT [phone] IF ANY MEDICATION OR NURSING QUESTIONS. 58-year-old male with morbid obesity, hypertension and type 2 diabetes mellitus.. He has chronic leg wounds that has been surgically addressed by Dr. Robles in the past. He underwent bilateral debridement of calf nonhealing wounds in June 2024. He now returns to the ER due to concern for leg infection. Patient was actually sent here by Dr. Robles from general surgery. He is having bilateral leg pain and diaphoresis. Was noted to have acute on chronic bilateral lower extremity cellulitis, treated with IV antibiotics. Wound care, patient is improved, tolerating diet, stable to discharge home with home health Discharge antibiotics Cefepime 2 gm IV Q8) and Cipro p.o. Wound care, Silvadene cream to bilateral lower extremity daily, Santyl on areas that need debrided status post I&D 08/01, and 08/[address] Cates after discharge, all office for apt Instructed to keep blood glucose log after discharge, take to primary care appointment Discharge home metformin 500 p.o. twice daily with meals Glipizide 5XL mg daily Atenolol 100 mg p.o. daily Procardia 60 mg XL daily Spironolactone 25 mg 1 p.o. daily Ativan as needed for anxiety Flomax 0.4 mg daily Assessment acute on chronic nonhealing wound with cellulitis of both lower extremity-is status post I&D 08/01, and 08/08 Urine cultures positive for Pseudomonas Aeruginsa, Proteus Mirabilis, was on empiric antibiotics with IV vancomycin and levofloxacin (WBC worsened) (Escalated to Cefepime 2 gm IV Q8) Diabetes with hyperglycemia uncontrolled Type 2 diabetes mellitus Random blood sugar 118, metformin 500 p.o. twice daily with meals Glipizide 5 mg twice daily hypertensive urgency-improved Nifedipine, losartan resumed, IV hydralazine added, titrate dose as needed Tobacco use, Smoking cessation reviewed. Educated with surgeon on Compliance with medical treatment as well as management of his diabetes as described smoking cessation Instructed on compliance with dressing changes elevation of bilateral lower extremities. Continue home medicines GOAL: Clear understanding of disease process INSTRUCTIONS: Physician Discharge Instructions: -Follow-up with surgery after discharge, call office for appointment -Follow-up with PCP in 1 to 2 weeks -Please call Dr. Cantor at [phone] if any questions regarding hospital stay -Please call nursing station at [phone] if any nursing or medication questions -Return to the emergency room if symptoms worsen Diet: ADA, low sodium Activity: Fall precautions Diet: ADA Activity: Ad preston Followup: Jai Tapia MD [ACTIVE - CAN ADMIT] - 1 Week Madan Cano MD [Primary Care Provider] - 1-2 Weeks Time spent managing pt's care (in minutes): 45
[2024-08-06 07:52] LABS: Absolute Basophils 0.1 K/uL (0-0.5); Absolute Eosinophils 0.8 K/uL (0-0.5); Absolute Lymphocytes (CBC) 1.8 K/uL (0.7-4.9); Absolute Monocytes 1.4 K/uL (0.1-1.3); Absolute Neutrophil 14.3 K/uL (1.8-8.0); Basophils % 0.3 % (0-1.3); Eosinophils % 4.4 % (0-4.4); Hematocrit 37.7 % (39.6-49.0); Hemoglobin 12.6 g/dL (13.6-17.9); Lymphocytes % 9.7 % (15.3-44.8); MCH 28.7 pg (27.0-35.0); MCHC 33.3 g/dL (32.0-36.0); MPV 8.5 fL (7.6-11.3); Monocytes % 7.6 % (3.3-12.3); Platelets 417 thou/uL (152-406); RBC Red Blood Cell Count 4.38 M/uL (4.33-5.43); Red Cell Distribution Width 15.7 % (12.1-15.2)
[2024-08-06 07:54] LABS: Anion Gap 8.6 mEq/L (5.0-15.0); Potassium 4.6 mEq/L (3.5-5.1)
[2024-08-06] MEDS: CIPROFLOXACIN 400mg IV 400 MG/200 ML BAG IV SCH (09:45)
[2024-08-06] MEDS: GABAPENTIN 100 MG CAP PO SCH (12:53)
[2024-08-06] MEDS: CEFEPIME 2 GM in NA CHLORIDE 0.9% 100 ML IV SCH (17:43)
[2024-08-06] MEDS: NA CHLORIDE 0.9% 1,000 ML IV SCH (17:43)
[2024-08-06] MEDS: CIPROFLOXACIN HCL 500 MG TAB PO SCH (17:44)
[2024-08-06] MEDS: COLLAGENASE 30 GM OINTMENT TOP SCH (17:44)
--- NOTE | 2024-08-06 18:34 | PN ---
Subjective: The patient is lying in bed. No new acute events. Chart reviewed. Vital signs reviewe d. Patient is sitting in wheelchair, not in any acute distress. Objective: Vital signs: Temperature 99, pulse 90, respirations 20, blood pressure 145/88. Lungs: Basal crackles. Heart: S1, S2. Regular. Abdomen: Soft, nontender. Bowel sounds present. Extremities: 2+ edema. Multiple wounds noted. Laboratory Data: Shows WBC 99889, hemoglobin 12.6, platelets are 417, BUN of 28, creatinine 1.27. Assessment/plan: 1. Lower extremity cellulitis with wounds. Noncompliance with tobacco usage and dependent edema as p atient likes to sit in wheelchair for long periods of time. 2. Leukocytosis. 3. Anemia of chronic disease. Wound cultures are growing Pseudomonas and Proteus mirabilis. We will recommend to add cefepime to for double coverage of Pseudomonas and continue for 2 weeks. Monitor signs of infection with WBC and fever trends. NF/MODL Voice ID: [id number] Report ID: [id number]
[2024-08-06] MEDS: HYDROMORPHONE HCL 1 MG/ML INJ IV PRN (22:03)
--- NOTE | 2024-08-06 22:15 | P.PN ---
Date of Service: 08/06/24 Subjective Infectious disease following, Plan to discharge home on cefepime 2 mg IV Q8, Cipro 500 twice daily, With home health with wound care, Family at bedside Review of Systems 10 point review of system negative unless listed in HPI Physical Examination - Vital Signs reviewed - Physical Exam General: Alert, In no apparent distress, Oriented x3, afebrile, HEENT: Atraumatic, Normocephalic, PERRLA Neck: Supple, 2+ carotid pulse no bruit, no JVD Respiratory: Normal air movement, equal unlabored Cardiovascular: Normal pulses, Regular rate/rhythm, Capillary refill: <2 Seconds Gastrointestinal: Normal bowel sounds, Musculoskeletal: Bilateral lower extremity weakness, Integumentary: Bilateral lower extremity edema, cellulitis, wrap with dressing, Neurological: Normal speech, Normal strength at 5/5 x4 extr, Assessment And Plan - Plan Patient is a 58-year-old male with a past medical history of hypertension, diabetes mellitus, and nonhealing lower extremity wounds. He has required debridement in June 2024. He now returns due to concern for leg infection. Patient is having increased pain. acute on chronic nonhealing wound with cellulitis of both lower extremity Chronic pain to bilateral lower extremity Tobacco use surgical debridement by general surgeon, , will follow surgical culture, pain control with IV analgesics Educated on tobacco cessation Infectious disease consult Wound care, cleanse with Vashe, Silvadene, bilateral lower extremity daily, dry dressing (Santyl to areas that need debriding DAILY) Plan to discharge home with home health, with IV antibiotics, wound Rollator ordered for home DME Urine cultures positive for Pseudomonas Aeruginsa, Proteus Mirabilis, was pre on continue empiric antibiotics with IV vancomycin and levofloxacin (Escalated to Cefepime 2 gm IV Q8) and Cipro p.o. Gabapentin, [place] added for pain Type 2 diabetes mellitus Random blood sugar 118, I will continue low-dose corrective insulin and diabetic diet Metformin 500 p.o. twice daily added Glipizide 5 mg p.o. twice daily hypertensive urgency Nifedipine, losartan resumed, IV hydralazine added, titrate dose as needed DVT prophylaxis; Brilinta Disposition plan to discharge home with home health with IV antibiotics
[2024-08-07 05:51] LABS: Absolute Basophils 0.1 K/uL (0-0.5); Absolute Eosinophils 0.8 K/uL (0-0.5); Absolute Lymphocytes (CBC) 1.8 K/uL (0.7-4.9); Absolute Monocytes 1.2 K/uL (0.1-1.3); Absolute Neutrophil 12.6 K/uL (1.8-8.0); Basophils % 0.8 % (0-1.3); Eosinophils % 4.7 % (0-4.4); Hematocrit 35.8 % (39.6-49.0); Hemoglobin 11.6 g/dL (13.6-17.9); Lymphocytes % 10.7 % (15.3-44.8); MCH 28.2 pg (27.0-35.0); MCHC 32.5 g/dL (32.0-36.0); MCV 86.8 fL (80-100); MPV 8.1 fL (7.6-11.3); Monocytes % 7.3 % (3.3-12.3); Neutrophils % 76.5 % (41.7-73.7); Platelets 410 thou/uL (152-406); RBC Red Blood Cell Count 4.12 M/uL (4.33-5.43); Red Cell Distribution Width 15.4 % (12.1-15.2)
[2024-08-07 06:00] LABS: Anion Gap 9.6 mEq/L (5.0-15.0); Potassium 4.6 mEq/L (3.5-5.1)
[2024-08-07] MEDS: glipiZIDE 5 MG TAB PO SCH (08:31)
[2024-08-07] MEDS: NICOTINE 21 MG/PAT TD SCH (14:21)
[2024-08-07] MEDS: HYDROCODONE/APAP 5/325 MG TAB PO PRN (16:02)
[2024-08-07] MEDS: ALPRAZOLAM 0.5 MG TABLET PO PRN (22:15)
--- NOTE | 2024-08-08 07:56 | P.PN ---
Date of Service: 08/07/24 Subjective NPO at [place] for surgery do another ID he reports moderate pain, gabapentin, added Educated on tobacco cessation, nicotine patch added instructed to elevated legs daily Review of Systems 10 point review of system negative unless listed in HPI Physical Examination - Vital Signs reviewed - Physical Exam General: Alert, In no apparent distress, Oriented x3, afebrile, HEENT: Supple Neck: Supple, 2+ carotid pulse no bruit, Respiratory: Normal air movement, equal unlabored Cardiovascular: Normal pulses, Regular rate/rhythm, Capillary refill: <2 Seconds, B)LE edema, Gastrointestinal: Normal bowel sounds, Musculoskeletal: Bilateral lower extremity weakness, Integumentary: Bilateral lower extremity edema, cellulitis, wrap with dressing, Neurological: Normal speech, Normal strength at 5/5 x4 extr, Assessment And Plan - Plan Patient is a 58-year-old male with a past medical history of hypertension, diabetes mellitus, and nonhealing lower extremity wounds. He has required debridement in June 2024. He now returns due to concern for leg infection. Patient is having increased pain. acute on chronic nonhealing wound with cellulitis of both lower extremity Chronic pain to bilateral lower extremity Tobacco use surgical debridement by general surgeon, , will follow surgical culture, pain control with IV analgesics Educated on tobacco cessation Infectious disease consult Wound care, cleanse with Vashe, Silvadene, bilateral lower extremity daily, dry dressing (Santyl to areas that need debriding DAILY) Plan to discharge home with home health, with IV antibiotics, wound Rollator ordered for home DME Urine cultures positive for Pseudomonas Aeruginsa, Proteus Mirabilis, was pre on continue empiric antibiotics with IV vancomycin and levofloxacin (Escalated to Cefepime 2 gm IV Q8) and Cipro p.o. Gabapentin, [place] added for pain Nicotine patch 2/7 ID for today with Surgery Type 2 diabetes mellitus Random blood sugar 118, I will continue low-dose corrective insulin and diabetic diet Metformin 500 p.o. twice daily added Glipizide 5 mg p.o. twice daily hypertensive urgency Nifedipine, losartan resumed, IV hydralazine added, titrate dose as needed DVT prophylaxis; Brilinta Disposition plan to discharge home with home health with IV antibiotics
[2024-08-08 08:11] LABS: Absolute Basophils 0.1 K/uL (0-0.5); Absolute Eosinophils 0.6 K/uL (0-0.5); Absolute Monocytes 1.1 K/uL (0.1-1.3); Absolute Neutrophil 13.8 K/uL (1.8-8.0); Basophils % 0.4 % (0-1.3); Eosinophils % 3.4 % (0-4.4); Hematocrit 37.6 % (39.6-49.0); Lymphocytes % 11.2 % (15.3-44.8); MCH 27.7 pg (27.0-35.0); MCHC 31.8 g/dL (32.0-36.0); MCV 87.1 fL (80-100); MPV 8.1 fL (7.6-11.3); Monocytes % 6.3 % (3.3-12.3); Neutrophils % 78.7 % (41.7-73.7); Nucleated Red Blood Cells % 0.1 % (0-0); Platelets 420 thou/uL (152-406); RBC Red Blood Cell Count 4.32 M/uL (4.33-5.43); Red Cell Distribution Width 15.5 % (12.1-15.2)
[2024-08-08 08:18] LABS: Albumin 2.5 g/dL (3.4-5.0); Albumin/Globulin Ratio 0.4 (1.1-1.8); Anion Gap 7.7 mEq/L (5.0-15.0); Bilirubin Total 0.4 mg/dL (0.2-1.0); Globulin 5.6 g/dL (2.3-3.5); Magnesium 2.4 mg/dL (1.6-2.4); Potassium 4.7 mEq/L (3.5-5.1); Protein, Total 8.1 g/dL (6.4-8.2)
[2024-08-08] MEDS ORDERED: propofoL 200 MG/20 ML VIAL IV ONE (11:57)
[2024-08-08] MEDS ORDERED: MIDAZOLAM HCL 2 MG/2 ML INJ ONE (11:57)
[2024-08-08] MEDS ORDERED: LIDOCAINE 1% MPF 5 ML VIAL ONE (11:57)
[2024-08-08] MEDS ORDERED: ROCURONIUM 50 MG/5 ML VIAL IV ONE (11:57)
[2024-08-08] MEDS ORDERED: ONDANSETRON 4 MG/2 ML VIAL ONE (11:57)
[2024-08-08] MEDS ORDERED: FENTANYL CITR 100 MCG/2 ML ONE (11:57)
[2024-08-08] MEDS: LIDOCAINE HCL/EPINEPHRINE 20 ML MDV ONE (12:16)
--- NOTE | 2024-08-08 13:51 | P.OP ---
Preoperative diagnosis: Chronic Wounds of Bilateral Lower Extremities Postoperative diagnosis: Chronic Wounds of Bilateral Lower Extremities Primary procedure: Debridement of Bilateral lower extremity and feet open chronic wounds Anesthesia: GETA Estimated blood loss: <10cc Specimen: Cultures, Debridement tissue Findings: Bilateral lower extremity and feet open chronic wounds ~ 30% of each LE Complications: None Transferred to: Recovery Room Condition: Good
[2024-08-08 14:42] VITALS: O2SAT 96
[2024-08-08] MEDS: NA CHLORIDE 0.9% 1,000 ML IV SCH (17:00)
[2024-08-08] MEDS: HYDROCODONE/APAP 7.5/325 MG TAB PO PRN (20:12)
[2024-08-08] MEDS: KETOROLAC 30 MG/ML INJ IV ONE (22:36)
--- NOTE | 2024-08-08 23:22 | OP ---
Date of Procedure: 08/08/2024 Surgeon: Jai Tapia MD, Brief History Of Present Illness: The patient is a 58-year-old male who is known to me from previous chronic wounds of bilateral lower extremities. He was admitted to the hospital, had a debridement p reviously few days ago; however, he continued to go outside to smoke and be noncompliant with some of his wound care instructions. As such, he had some additional necrosis circumferentially around a fe w edges of his wounds due to above comorbid conditions and noncompliance with medical treatment. He has urinated on the wound dressing several times as well and had not had them changed in a timely fas hion, and they have been soiled on several occasions. At this point, I opted to take the patient yusuf k to the operating room and debride the areas to achieve optimal wound integrity. Preoperative Diagnosis: Chronic wounds, bilateral lower extremities. Postoperative Diagnosis: Chronic wounds, bilateral lower extremities. Procedure Performed: Debridement of bilateral lower extremity feet and calf wounds predominantly. Anesthesia: General endotracheal. Estimated Blood Loss: 10 cc. Specimens: Culture sent for both aerobic and anaerobic speciation, debridement tissue. Findings: Bilateral lower extremity and feet open chronic wounds, approximately 30% of lower extremi ties each. Complications: None. Disposition: The patient was transferred to recovery room in good condition. Procedure In Detail: After informed consent was obtained, the patient was brought to the operating r oom, prepped in usual sterile fashion. After adequate anesthesia was achieved, I circumferentially d issected out the area of all necrotic and fibrinous tissue with a curette and sharp dissection. Afte r all nonviable tissue was removed, I curetted the entire surface areas of all wounds to get them lisy e and clean. The areas were all irrigated copiously until completely clear. Cultures were sent for both aerobic and anaerobic speciation from the edges of the wounds, where the obvious necrosis was/fi brinous buildup. All debridement tissue was cleansed off the area at that time. The wounds were the n dressed appropriately with sterile dressings, and Roman bandage was applied on top. The patient tole rated procedure without incident or complication, and transferred to PACU in good condition. All cou nts were correct at the end of the case. JADE/SOFI Voice ID: [id number] Report ID: [id number]
[2024-08-09 05:00] LABS: Absolute Basophils 0.1 K/uL (0-0.5); Absolute Eosinophils 0.6 K/uL (0-0.5); Absolute Lymphocytes (CBC) 1.5 K/uL (0.7-4.9); Absolute Monocytes 1.4 K/uL (0.1-1.3); Absolute Neutrophil 11.7 K/uL (1.8-8.0); Basophils % 0.7 % (0-1.3); Hematocrit 33.1 % (39.6-49.0); Hemoglobin 10.8 g/dL (13.6-17.9); MCHC 32.8 g/dL (32.0-36.0); MCV 85.5 fL (80-100); MPV 8.8 fL (7.6-11.3); Monocytes % 8.9 % (3.3-12.3); Neutrophils % 76.4 % (41.7-73.7); Platelets 347 thou/uL (152-406); RBC Red Blood Cell Count 3.87 M/uL (4.33-5.43); Red Cell Distribution Width 15.3 % (12.1-15.2)
[2024-08-09 05:29] LABS: Albumin/Globulin Ratio 0.4 (1.1-1.8); Anion Gap 6.5 mEq/L (5.0-15.0); Bilirubin Total 0.2 mg/dL (0.2-1.0); Globulin 4.7 g/dL (2.3-3.5); Magnesium 2.5 mg/dL (1.6-2.4); Potassium 4.5 mEq/L (3.5-5.1); Protein, Total 6.7 g/dL (6.4-8.2)
--- NOTE | 2024-08-09 08:36 | P.PN ---
Date of Service: 08/08/24 Subjective Educated on tobacco cessation, nicotine patch added Review of Systems 10 point review of system negative unless listed in HPI Physical Examination - Vital Signs reviewed - Physical Exam General: Alert, In no apparent distress, Oriented x3, afebrile, HEENT: Supple Neck: Supple, 2+ carotid pulse no bruit, Respiratory: Normal air movement, equal unlabored Cardiovascular: Normal pulses, Regular rate/rhythm, Capillary refill: <2 Seconds, Gastrointestinal: Normal bowel sounds, Musculoskeletal: Bilateral lower extremity weakness, Integumentary: Bilateral lower extremity edema, cellulitis, wrap with dressing, Neurological: Normal speech, Normal strength at 5/5 x4 extr, Assessment And Plan - Plan Patient is a 58-year-old male with a past medical history of hypertension, diabetes mellitus, and nonhealing lower extremity wounds. He has required debridement in June 2024. He now returns due to concern for leg infection. Patient is having increased pain. acute on chronic nonhealing wound with cellulitis of both lower extremity Chronic pain to bilateral lower extremity Tobacco use surgical debridement by general surgeon, , will follow surgical culture, pain control with IV analgesics Educated on tobacco cessation Infectious disease consult Wound care, cleanse with Vashe, Silvadene, bilateral lower extremity daily, dry dressing (Santyl to areas that need debriding DAILY) Plan to discharge home with home health, with IV antibiotics, wound Rollator ordered for home DME Urine cultures positive for Pseudomonas Aeruginsa, Proteus Mirabilis, was pre on continue empiric antibiotics with IV vancomycin and levofloxacin (Escalated to Cefepime 2 gm IV Q8) and Cipro p.o. Gabapentin, [place] added for pain Nicotine patch 07/22 and 08/[address] Tapia Type 2 diabetes mellitus with hyperglcemia Random blood sugar 118, I will continue low-dose corrective insulin and diabetic diet Metformin 500 p.o. twice daily added Glipizide 5 mg p.o. twice daily hypertensive urgency improved Nifedipine, losartan resumed, IV hydralazine added, titrate dose as needed DVT prophylaxis; Chai Disposition plan to discharge home with home health with IV antibiotics
[2024-08-09] MEDS ORDERED: KETOROLAC 10 MG TAB PO PRN (16:05)
[2024-08-09] MEDS: HYDROMORPHONE HCL 2 MG/ML inj IV ONE (16:34)
[2024-08-09 16:39] VITALS: BP 122/71; TEMP 97.5
[2024-08-09] MEDS ORDERED: HYDROCODONE/APAP 7.5/325 MG TAB PO PRN (17:00)
== END 2024-08-09 19:30 | disposition home health service (06) | DRG 854 ==
LOC: ER 16:59 → ERHOLD 20:47 → 2ND 21:41
PROVIDERS: ADMIT Internal Medicine; ATTEND Hospitalist
PROC: 0JBP0ZZ Excision of Left Lower Leg Subcutaneous Tissue and Fascia, Open Approach (ICD-10-PCS; 2024-08-01)
PROC: 0JDP0ZZ Extraction of Left Lower Leg Subcutaneous Tissue and Fascia, Open Approach (ICD-10-PCS; 2024-08-01)
PROC: 0JDN0ZZ Extraction of Right Lower Leg Subcutaneous Tissue and Fascia, Open Approach (ICD-10-PCS; 2024-08-01)
PROC: 5A09457 Assistance with Respiratory Ventilation, 24-96 Consecutive Hours, Continuous Positive Airway Pressure (ICD-10-PCS; 2024-08-01)
PROC: 02HV33Z Insertion of Infusion Device into Superior Vena Cava, Percutaneous Approach (ICD-10-PCS; 2024-08-01)
PROC: 0JBN0ZZ Excision of Right Lower Leg Subcutaneous Tissue and Fascia, Open Approach (ICD-10-PCS; principal; 2024-08-01 14:15)
PROC: 4A033R1 Measurement of Arterial Saturation, Peripheral, Percutaneous Approach (ICD-10-PCS; 2024-08-02)
PROC: 0JBP0ZZ Excision of Left Lower Leg Subcutaneous Tissue and Fascia, Open Approach (ICD-10-PCS; 2024-08-08)
PROC: 0JBN0ZZ Excision of Right Lower Leg Subcutaneous Tissue and Fascia, Open Approach (ICD-10-PCS; 2024-08-08)
DX: A41.9 Sepsis, unspecified organism (principal); E11.52 Type 2 diabetes mellitus with diabetic peripheral angiopathy with gangrene; M86.18 Other acute osteomyelitis, other site; L03.116 Cellulitis of left lower limb; L03.115 Cellulitis of right lower limb; E11.69 Type 2 diabetes mellitus with other specified complication; E11.65 Type 2 diabetes mellitus with hyperglycemia; I16.0 Hypertensive urgency; I10 Essential (primary) hypertension; I45.10 Unspecified right bundle-branch block; N40.0 Benign prostatic hyperplasia without lower urinary tract symptoms; D63.8 Anemia in other chronic diseases classified elsewhere; E66.01 Morbid (severe) obesity due to excess calories; F17.210 Nicotine dependence, cigarettes, uncomplicated; B96.4 Proteus (mirabilis) (morganii) as the cause of diseases classified elsewhere; B96.5 Pseudomonas (aeruginosa) (mallei) (pseudomallei) as the cause of diseases classified elsewhere; Z68.38 Body mass index [BMI] 38.0-38.9, adult; Z79.84 Long term (current) use of oral hypoglycemic drugs; Z79.899 Other long term (current) drug therapy; Z91.148 Patient's other noncompliance with medication regimen for other reason
CPT/HCPCS: 36415; 36600; 80048; 80053; 80061; 80202; 82805; 82947; 83036; 83605; 83735; 85025; 85610; 85730; 87040; 87070; 87075; 87077; 87186; 87205; 88304; 93005; 99285; J0360; J0692; J1171; J2003; J2250; J2270; J2405; J2704; J3010; J3590; J7030; J7040; J7050

== ENCOUNTER 2024-08-10 16:03 | Emergency (ER) | payer OTHER ==
--- OUTSIDE RECORDS SUMMARY | 2024-08-10 16:06 | XMS REPORT | Continuity of Care Document ---
Author Name Unknown Address [address] [facility] [address] [place] [address] [facility] thconnect Address [address] [facility] [address] [place] [address] Care Team Providers Care Inside Sales Professional Name Role Phone JORDAN SULLIVAN Attending Clinician Unavailable REIROCHELLE GONZÁLES Attending Clinician Unavailable PL, TECH 1 Attending Clinician Unavailable MD NIKOLAY Attending Clinician Unavailab CHACHO Darden Attending Clinician Unavailab CHIOL Powell Attending Clinician Unavailable DAVID SNEED Attending Clinician UnavailFRANCI Egan Attending Clinician Unavailable LAB90 Attending Clinician Unavailable ROE ROJO Attending Clinician Unavailable TEE BLAKE Attending Clinician Unavailab JAKOB Humphrey Attending Clinician Unavailable MACIEJ MORENO Attending Clinician Unavailable JONO ELDER Attending Clinician Unavailable Provider, [facility] Attending Clinician Un available Med Aguiar MD Attending Clinician MED AGUIAR Attending Clinician Unavailable Doctor Unassigned, Mio Attending Clinician U navailable Payers Payer Name Policy Type Policy Number Effective Date Expirati on Date Source AETELIA STALLINGS [employer]: H[employer] [address] ON [address]AND 9 [id number] 2022 00:00:00 [employer] [id number] 2022 00:00:00 Problems Condition Name Condition Details [...] Externa l 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 Allergies, Adverse Reactions, Alerts Allergy Name Allergy Type Status Severity Reaction(s) Onset Date Inactive Date Treating Clinician Comments Source Lisinopr il Propensi ty to adverse reaction s to drug Active Other 10-31 00:00: 00 Cough Lupe Rosado - Externa l NO KNOWN ALLERGIE S Drug Class Active [facility] Social History Social Habit Start Date Stop Date Quantity Comments Source Gender identity Juana Rosado - External Sexual orientation K wiliam Ashlee - External History of tobacco use Cigarette Smoker Lupe valdez - External Exposure to SARS-CoV-2 (event) Not sure [facility] Alcohol intake 2023-05-07 00:00:00 2023-05-07 00:00:00 [...] exposure 2020-12-04 00:00:00 2020-12-04 00:00:00 Never used [facility] Sex Assigned At 1965 00:00:00 1965 00:00:00 Lupe Rosado - External Smoking Status Start Date Stop Date Source Unknown if ever smoked [facility] Smokes tobacco daily 2023-04-18 00:00:00 Lupe Rosado - External Medications Ordered Medication Name Filled Medication Name Start Date Stop Date Current Medication? Ordering Clinician Indication Dosage Frequency Signature (SIG) Comments Components Source Losartan Potassium (COZAAR) 100 MG oral Tablet 2022-07 00:00: 00 Yes [id number] 100mg Take 1 tablet (100 mg total) by mouth daily. Lupe medrano [employer] does not apply Misc 2022-07 00:00: 00 Yes [id number] 1 inch 18G needle with 5 cc [...] 2022-07 00:00: 00 08-18 05:59 :00 No [id number] 200mg Inject 200 mg into the muscle every 14 days. Lupe medrano Alprazolam 1 MG oral Tablet 2022-07 00:00: 00 Yes [id number] 1mg QD Take 1 tablet (1 mg total) by mouth nightly as needed for anxiety. Lupe medrano Carvedilol (Coreg) 12.5 MG oral Tablet 2022-07 00:00: 00 Yes [id number] 12.5mg Take 1 tablet (12.5 mg total) by mouth in the morning and 1 tablet (12.5 mg total) in the evening. Take with meals. Lupe medrano Testosteron e Cypionate (DEPO-TESTO STERONE) 200 mg/mL - Every 14 Days 2022-07 0-11 16:15: 00 08-29 17:14 :00 No [id number] 200mg Lupe medrano Tadalafil (Cialis) 5 MG oral Tablet 2022-07 0-09 00:00: 00 10-06 04:59 :00 No [id number] 5mg QD Take 1 tablet (5 mg [...] 808 00:00: 00 04-18 00:00 :00 No [id number] 1mg QD Take 1 tablet (1 mg total) by mouth nightly as needed for anxiety Lupe medrano Alprazolam 1 MG oral Tablet 01-16 00:00: 00 Yes [id number] 1mg QD Take 1 tablet (1 mg total) by mouth nightly as needed for anxiety Lupe medrano Amlodipine Besylate (Norvasc) 5 MG oral Tablet 01-16 00:00: 00 Yes [id number] 5mg Take 1 tablet (5 mg total) by mouth daily Lupe medrano Losartan Potassium (COZAAR) 100 MG oral Tablet 01-16 00:00: 00 Yes [id number] 100mg Take 1 tablet (100 mg total) by mouth daily Lupe medrano Metformin HCl 500 MG oral Tablet 01-16 00:00: 00 Yes [id number] 500mg Take 1 tablet (500 mg total) by mouth in the morning and 1 tablet (500 mg total) in the evening. Take with meals. Lupe medrano Carvedilol (Coreg) 6.25 MG oral Tablet 01-16 00:00: 00 04-18 00:00 :00 No [id number] 6.25mg Take 1 tablet (6.25 mg total) by mouth in the morning and 1 tablet (6.25 mg total) in the evening. Take with meals. Lupe medrano Doxycycline Hyclate 100 MG oral Capsule 6 00:00: 00 01-16 00:00 :00 No [id number] 100mg Take 1 capsule (100 mg total) by mouth 2 times daily for 7 days Lupe medrano Amlodipine Besylate (Norvasc) 5 MG oral Tablet 11-28 00:00: 00 Yes [id number] 5mg Take 1 tablet (5 mg total) by mouth daily Lupe medrano Carvedilol (Coreg) 6.25 MG oral Tablet 11-28 00:00: 00 Yes [id number] 6.25mg Take 1 tablet (6.25 mg total) by mouth in the morning and 1 tablet (6.25 mg total) in the evening. Take with meals. Lupe medrano Metformin HCl 500 MG oral Tablet 11-28 00:00: 00 Yes [id number] 500mg Take 1 tablet (500 mg total) by mouth in the morning and 1 tablet (500 mg total) in the evening. Take with meals. Lupe medrano Alprazolam 1 MG oral Tablet 11-28 00:00: 00 Yes [id number] 1mg QD Take 1 tablet (1 mg total) by mouth nightly as needed for anxiety Lupe medrano Losartan Potassium (COZAAR) 100 MG oral Tablet 11-28 00:00: 00 01-16 00:00 :00 No [id number] 100mg Take 1 tablet (100 mg total) by mouth daily Lupe medrano Doxycycline Hyclate 100 MG oral Capsule 11-14 00:00: 00 11-28 00:00 :00 No [id number] 100mg Take 1 capsule (100 mg total) by mouth 2 times daily for 7 days Lupe medrano Mupirocin (BACTROBAN) 2 % apply externally Ointment 10-19 00:00: 00 Yes [id number] Apply 1 applicatio n. topically 3 times daily Lupe medrano Metformin HCl 500 MG oral Tablet 10-19 00:00: 00 11-28 00:00 :00 No [id number] 1000mg Take 2 tablets (1,000 mg total) [...] 10-13 00:00: 00 11-28 00:00 :00 No [id number] 6.25mg Take 1 tablet (6.25 mg total) by mouth in the morning and 1 tablet (6.25 mg total) in the evening. Take with meals. Lupe medrano Alprazolam 1 MG oral Tablet 10-13 00:00: 00 11-28 00:00 :00 No [id number] 1mg QD Take 1 tablet (1 mg total) by mouth nightly as needed for anxiety Lupe medrano Lisinopril 40 MG oral Tablet 09-14 00:00: 00 Yes [id number] 40mg Take 1 tablet (40 mg total) by mouth daily Lupe medrano Amlodipine Besylate (Norvasc) 5 MG oral Tablet 09-14 00:00: 00 11-28 00:00 :00 No [id number] 5mg Take 1 tablet (5 mg total) by mouth daily Lupe medrano Mupirocin (BACTROBAN) 2 % apply externally Ointment 09-12 00:00: 00 Yes [id number] Apply 1 applicatio n. topically 3 times daily Lupe medrano Alprazolam 2 MG oral Tablet 09-05 08:14: 52 Yes 2mg QD Take 2 mg by mouth nightly as needed Lupe medrano Lisinopril 20 MG oral Tablet 09-05 00:00: 00 Yes [id number] 20mg Take 1 tablet (20 mg total) by mouth daily Lupe medrano Metformin HCl 500 MG oral Tablet 09-05 00:00: 00 Yes [id number] 500mg Take 1 tablet (500 mg total) by mouth in the morning and 1 tablet (500 mg total) in the evening. Take with meals. Lupe medrano Propranolol HCl 10 MG oral Tablet 09-05 00:00: 00 Yes [id number] 20mg Take 2 tablets (20 mg total) by mouth 3 times daily Lupe medrano Doxycycline Hyclate 100 MG oral Tablet 09-05 00:00: 00 Yes [id number] 100mg Take 1 tablet (100 mg total) by mouth 2 times daily Lupe medrano Mupirocin (BACTROBAN) 2 % apply externally Ointment 09-05 00:00: 00 Yes [id number] Apply 1 applicatio n. topically 3 times daily Lupe medrano Escitalopra m Oxalate (Lexapro) 10 MG oral Tablet 09-05 00:00: 00 09-05 00:00 :00 No [id number] 10mg Take 1 tablet (10 mg total) by mouth daily Lupe medrano sulfamethox azole-trime thoprim (BACTRIM DS) 800-160 mg per tablet 12-04 00:00: 00 12-12 04:59 :00 No [id number] 1{tbl} Take 1 tablet by mouth 2 (two) times daily for [address] [facility] Vital Signs Vital Name Observation Time [...] Systolic blood pressure 2020-12-04 22:21:00 168 mm[Hg] [facility] Diastolic blood pressure 2020-12-04 22:21:00 107 mm[Hg] [facility] Heart rate 2020-12-04 22:14:00 87 /min [facility] Body temperature 2020-12-04 22:14:00 36.72 Daly [facility] Respiratory rate 2020-12-04 22:14:00 22 /min [facility] Body height 2020-12-04 22:14:00 182.9 cm [facility] Body weight 2020-12-04 22:14:00 145.746 kg [facility] BMI 2020-12-04 22:14:00 43.58 kg/m2 [facility] Oxygen saturation in Arterial blood by Pulse oximetry 2020-12-04 22:14:00 99 /min [facility] Procedures Procedure Date / Time Performed Performing Clinicia n Source LUMBAR SPINE 2 VIEWS [facility] - [facility]O 2023-03-23 16:02:05 Franci Dan - External CERVICAL SPINE - 2 VIEW 2023-03-23 16:01:26 Franci Dan - External ASSIGNMENT OF BENEFITS 2020-12-04 22:07:06 Docto r Unassigned, Mio [facility] Encounters Start Date/Time End Date/Time Encounter Type Admission Type Attending Clinicians Care Facility Care Department Encounter ID Source 2024-02-28 00:00:00 2024-02-28 00:00:00 Outpatient JORDAN SULLIVAN [id number] [facility]pe tran 2023-09-21 00:00:00 2023-09-21 00:00:00 Outpatient JORDAN SULLIVAN [id number] [facility] 2023-07-19 09:00:00 2023-07-19 09:00:00 Outpatient OJRDAN SULLIVAN [id number] Lupe Rosado 2023-07-09 08:45:00 2023-07-09 08:45:00 Outpatient ROCHELLE MINAYA [id number] Lupe Rosado 2023-06-15 00:00:00 2023-06-15 00:00:00 Outpatient ROCHELLE MINAYA [id number] Lupe Setran 2023-06-15 00:00:00 2023-06-15 00:00:00 Outpatient ROCHELLE MINAYA [id number] Lupe Rosado 2023-06-15 00:00:00 2023-06-15 00:00:00 Outpatient ROCHELLE MINAYA [id number] Lupe Rosado 2023-06-15 00:00:00 2023-06-15 00:00:00 Outpatient ROCHELLE MINAYA [id number] Lupe [facility] 2023-05-31 10:00:00 2023-05-31 10:00:[address], TECH LUPE HOUSER [id number] Lupe [facility] 2023-05-31 00:00:00 2023-05-31 00:00:00 Outpatient MD LUPE VELEZ [id number] Lu[facility] 2023-05-29 00:00:00 2023-05-29 00:00:00 Outpatient JORDAN SULLIVAN [id number] Lupe [facility] 2023-05-28 19:42:46 2023-05-28 19:42:46 Outpatient CRIS CHACHO [facility] [id number] [facility] 2023-05-28 00:00:00 2023-05-28 00:00:00 Outpatient ANNABELLA, CHILO HOUSER [id number] Lupe [facility] 2023-05-15 00:00:00 2023-05-15 00:00:00 Outpatient MD LUPE VELEZ [id number] Lupe [facility] 2023-05-08 00:00:00 2023-05-08 00:00:00 Outpatient LUPE HOUSER [id number] Lupe [facility] 2023-05-07 16:40:00 2023-05-07 16:40:00 Outpatient ANNABELLA, CHILOYOVANI HOUSER [id number] Lupe [facility] 2023-05-05 00:00:00 2023-05-05 00:00:00 Outpatient JORDAN SULLIVAN [id number] Lupe [facility] 2023-05-03 00:00:00 2023-05-03 00:00:00 Outpatient MD LUPE VELEZ [id number] [facility] 2023-04-27 00:00:00 2023-04-27 00:00:00 Outpatient JORDAN SULLIVAN [id number] Lupe tran 2023-04-25 11:30:00 2023-04-25 11:30:00 Outpatient DAVID SNEED [id number] Lupe [facility] 2023-04-19 00:00:00 2023-04-19 00:00:00 Outpatient REI, ROCHELLE LUPE HOUSER [id number] [facility] 2023-04-18 10:30:00 2023-04-18 10:30:00 Outpatient PREZAS, JORDAN LUPE HOUSER [id number] [facility] 2023-04-18 00:00:00 2023-04-18 00:00:00 Outpatient REI, ROCHELLE LUPE HOUSER [id number] [facility] 2023-04-12 00:00:00 2023-04-12 00:00:00 Outpatient PREZAS, JORDAN LUPE HOUSER [id number] [facility] 2023-04-12 00:00:00 2023-04-12 00:00:00 Outpatient PREZAS, JORDAN LUPE HOUSER [id number] [facility] 2023-04-11 13:15:00 2023-04-11 13:15:00 Outpatient NARENDAVID LUPE HOUSER [id number] [facility] 2023-04-11 00:00:00 2023-04-11 00:00:00 Outpatient REI, ROCHELLERita HOUSER [id number] [facility] 2023-04-10 13:15:00 2023-04-10 13:15:00 Outpatient ATKINS, FRANCI HOUSER [id number] [facility] 2023-04-10 08:35:00 2023-04-10 08:35:00 Outpatient LAB90 LUPE HOUSER [id number] [facility] 2023-04-09 13:30:00 2023-04-09 13:30:00 Outpatient REI, ROCHELLERita HOUSER [id number] Lupe [facility] 2023-03-30 15:15:00 2023-03-30 15:15:00 Outpatient ATPRASHANT, FRANCI HOUSER [id number] [facility] 2023-03-23 10:45:00 2023-03-23 10:45:00 Outpatient LUPE HOUSER [id number] [facility] 2023-03-23 10:40:00 2023-03-23 10:40:00 Outpatient LUPE LUPE [id number] [facility] 2023-03-23 10:00:00 2023-03-23 10:00:00 Outpatient FRANCI DAN LUPE HOUSER [id number] [facility] 2023-03-20 00:00:00 2023-03-20 00:00:00 Outpatient PREZAS, JORDAN LUPE HOUSER [id number] [facility] 2023-03-20 00:00:00 2023-03-20 00:00:00 Outpatient PREZAS, JORDAN LUPE LUPE [id number] [facility] 2023-03-20 00:00:00 2023-03-20 00:00:00 Outpatient PREZAS, JORDAN LUPE [facility] [id number] [facility] 2023-03-13 00:00:00 2023-03-13 00:00:00 Outpatient PREZAS, JORDAN LUPE HOUSER [id number] [facility] 2023-03-12 08:40:00 2023-03-12 08:40:00 Outpatient LAB90 LUPE HOUSER [id number] [facility] 2023-03-12 00:00:00 2023-03-12 00:00:00 Outpatient PREZAS, JORDAN LUPE HOUSER [id number] [facility] 2023-03-09 09:55:00 2023-03-09 09:55:00 Outpatient LAB90 LUPE HOUSER [id number] [facility] 2023-03-07 10:30:00 2023-03-07 10:30:00 Outpatient LAB90 LUPE HOUSER [id number] [facility] 2023-02-12 00:00:00 2023-02-12 00:00:00 Outpatient PREZAS, JORDAN LUPE HOUSER [id number] Lupe Seybold 2023-02-08 08:45:00 2023-02-08 08:45:00 Outpatient LUPE HOUSER [id number] Lupe Seybold 2023-02-06 00:00:00 2023-02-06 00:00:00 Outpatient PREZAS, JORDAN LUPE HOUSER [id number] Lupe Seybold 2023-02-06 00:00:00 2023-02-06 00:00:00 Outpatient PREZAS, JORDAN HOUSER LUPE [id number] [facility] 2023-02-06 00:00:00 2023-02-06 00:00:00 Outpatient PREZAS, JORDAN HOUSER LUPE [id number] [facility] 2023-01-31 09:50:00 2023-01-31 09:50:00 Outpatient LAB90 LUPE LUPE [id number] [facility] 2023-01-31 00:00:00 2023-01-31 00:00:00 Outpatient PREZAS, JORDAN LUPE LUPE [id number] [facility] 2023-01-31 00:00:00 2023-01-31 00:00:00 Outpatient PREZAS, JORDAN LUPE HOUSER [id number] [facility] 2023-01-25 00:00:00 2023-01-25 00:00:00 Outpatient PREZAS, JORDAN HOUSER LUPE [id number] Lupe [facility] 2023-01-18 00:00:00 2023-01-18 00:00:00 Outpatient PREZAS, JORDAN LUPE [facility]PE [id number] [facility] 2023-01-16 14:25:00 2023-01-16 14:25:00 Outpatient LAB90 LUPE LUPE [id number] [facility] 2023-01-16 10:00:00 2023-01-16 10:00:00 Outpatient PREZAS, JORDAN LUPE HOUSER [id number] [facility] 2023-01-16 00:00:00 2023-01-16 00:00:00 Outpatient PREZAS, JORDAN LUPE HOUSER [id number] [facility] 2023-01-08 00:00:00 2023-01-08 00:00:00 Outpatient PREZAS, JORDAN LUPE HOUSER [id number] [facility] 2022-12-28 11:30:00 2022-12-28 11:30:00 Outpatient DARRELROE Davis [id number] Lupe [facility] 2022-12-28 00:00:00 2022-12-28 00:00:00 Outpatient PREZAS, JORDAN HOUSER LUPE [id number] Lupe [facility] 2022-12-28 00:00:00 2022-12-28 00:00:00 Outpatient PREZAS, JORDAN HOUSER LUPE [id number] [facility] 2022-12-28 00:00:00 2022-12-28 00:00:00 Outpatient PREZAS, JORDAN HOUSER LUPE [id number] Lupe [facility] 2022-12-28 00:00:00 2022-12-28 00:00:00 Outpatient PREZAS, JORDAN HOUSER LPUE [id number] Lupe [facility] 2022-12-28 00:00:00 2022-12-28 00:00:00 Outpatient PREZAS, JORDAN LUPE HOUSER [id number] Lupe [facility] 2022-12-26 15:30:00 2022-12-26 15:30:00 Outpatient PREZAS, JORDAN GARDNERBELGICA HOUSER [id number] [facility] 2022-11-29 14:15:00 2022-11-29 14:15:00 Outpatient ALIOTA, TEE LUPE HOUSER [id number] [facility] 2022-11-28 15:30:00 2022-11-28 15:30:00 Outpatient PREZAS, JORDAN [facility]OUS[facility] [id number] [facility]22-[facility]-28 00:00:00 2022-11-28 00:00:00 Outpatient LUPE HOUSER [id number] [facility] 2022-11-28 00:00:00 2022-11-28 00:00:00 Outpatient PREZAS, JORDAN LUPE HOUSER [id number] [facility] 2022-11-15 14:30:00 2022-11-15 14:30:00 Outpatient PREZAS, JORDAN LUPE HOUSER [id number] [facility] 2022-11-14 00:00:00 2022-11-14 00:00:00 Outpatient PREZAS, JORDAN LUPE HOUSER [id number] [facility] 2022-11-14 00:00:00 2022-11-14 00:00:00 Outpatient PREZAS, JORDAN LUPE HOUSER [id number] [facility] 2022-10-31 00:00:00 2022-10-31 00:00:00 Outpatient PREZAS, JORDAN LUPE HOUSER [id number] Lupe [facility] 2022-10-31 00:00:00 2022-10-31 00:00:00 Outpatient PREZAS, JORDAN LUPE HOUSER [id number] [facility] 2022-10-30 00:00:00 2022-10-30 00:00:00 Outpatient TING, JAKOB LUPE HOUSER [id number] [facility] 2022-10-25 08:00:00 2022-10-25 08:00:00 Outpatient HUNDL, MACIEJ HUOSER [id number] [facility] 2022-10-19 00:00:00 2022-10-19 00:00:00 Outpatient PREZAS, JORDAN LUPE HOUSER [id number] [facility] 2022-10-19 00:00:00 2022-10-19 00:00:00 Outpatient HUNDL, MACIEJ HOUSER [id number] [facility] 2022-10-18 00:00:00 2022-10-18 00:00:00 Outpatient HUNDL, MACIEJ HOUSER [id number] [facility] 2022-10-18 00:00:00 2022-10-18 00:00:00 Outpatient HUNDL, MACIEJ HOUSER [id number] Lupe [facility] 2022-10-13 12:20:00 2022-10-13 12:20:00 Outpatient LABDilip HOUSER [id number] Lupe Seybold 2022-10-13 11:45:00 2022-10-13 11:45:00 Outpatient PREZAS, JORDAN LUPE HOUSER [id number] Lupe Seybold 2022-10-12 08:00:00 2022-10-12 08:00:00 Outpatient PREZAS, JORDAN HOUSER [id number] Lupe Seybold 2022-10-05 00:00:00 2022-10-05 00:00:00 Outpatient MACIEJ MORENO LUPE [id number] Lupe Rosado 2022-09-21 09:00:00 2022-09-21 09:00:00 Outpatient MACIEJ MORENO LUPE [id number] Lupe Rosado 2022-09-14 09:00:00 2022-09-14 09:00:00 Outpatient DAVID SNEED LUPE HOUSER [id number] Lupe Rosado 2022-09-14 00:00:00 2022-09-14 00:00:00 Outpatient JORDAN SULLIVAN LUPE HOUSER [id number] Lupe Rosado 2022-09-12 09:00:00 2022-09-12 09:00:00 Outpatient DAVID SNEED LUPE HOUSER [id number] Lupe Rosado 2022-09-12 00:00:00 2022-09-12 00:00:00 Outpatient MACIEJ MORENO LUPE HOUSER [id number] Lupe Rosado 2022-09-05 09:00:00 2022-09-05 09:00:00 Outpatient LAB90 LUPEBELGICA HOUSER [id number] Lupe Rosado 2022-09-05 08:00:00 2022-09-05 08:00:00 Outpatient MACIEJ MORENO LUPE HOUSER [id number] Lupe Rosado 2022-08-28 00:00:00 2022-08-28 00:00:00 Outpatient JORDAN SULLIVAN LUPE HOUSER [id number] Lupe Rosado 2022 11:15:00 2022 11:15:00 Outpatient JONO ELDER LUPE HOUSER [id number] [facility] 2020-12-04 17:09:14 2020-12-04 18:03:41 Urgent Care Provider, [facility] Med Aguiar [facility] [id number] [facility] 2020-12-04 16:40:00 2020-12-04 16:40:00 Outpatient MED VILLALPANDO [facility] [id number] [facility] 2020-12-04 00:00:00 2020-12-04 00:00:00 Orders Only Doctor Unassigned, Mio [facility] [id number] [facility]
--- NOTE | 2024-08-10 16:23 | ER ---
Nurse's Notes [facility] Name: Jorge Estrada Age: 59 yrs Sex: Male : 1965 Arrival Date: 08/10/2024 Time: 16:03 Bed Waiting Private MD: Diagnosis: Assessment: 08/10 16:22 Reassessment: ER registration, Jazmyne states pt left after stating that there was no ss issue with their PICC line after all. ED Course: 16:05 Patient arrived in ED. ra3 Administered Medications: No medications were administered Outcome: 16:23 Patient left the ED. ss Signatures: Lakeshia Garay RN RN Antonina Suarez ra3
== END 2024-08-10 16:23 | disposition left against medical advice (07) ==
LOC: ER 16:03
DX: Z02.9 Encounter for administrative examinations, unspecified (principal)

== ENCOUNTER 2024-09-26 08:33 | Day surgery (SDC) | payer OTHER ==
[2024-09-26 08:44] LABS: Absolute Basophils 0.1 K/uL (0-0.5); Absolute Eosinophils 0.3 K/uL (0-0.5); Absolute Lymphocytes (CBC) 1.5 K/uL (0.7-4.9); Absolute Monocytes 0.7 K/uL (0.1-1.3); Basophils % 0.5 % (0-1.3); Eosinophils % 2.9 % (0-4.4); Hematocrit 39.5 % (39.6-49.0); Hemoglobin 13.1 g/dL (13.6-17.9); Lymphocytes % 14.6 % (15.3-44.8); MCH 28.3 pg (27.0-35.0); MCHC 33.3 g/dL (32.0-36.0); MCV 84.9 fL (80-100); MPV 8.6 fL (7.6-11.3); Monocytes % 6.2 % (3.3-12.3); Neutrophils % 75.8 % (41.7-73.7); Nucleated Red Blood Cells % 0.1 % (0-0); Platelets 269 thou/uL (152-406); RBC Red Blood Cell Count 4.65 M/uL (4.33-5.43); Red Cell Distribution Width 15.5 % (12.1-15.2)
[2024-09-26] MEDS: NA CHLORIDE 0.9% 1,000 ML ONE (09:00)
[2024-09-26] MEDS ORDERED: VANCOMYCIN 1 GM/VIAL ONE (09:02)
[2024-09-26] MEDS ORDERED: NA CHLORIDE 0.9% 250 ML ONE (09:04)
[2024-09-26 09:20] LABS: Anion Gap 10.9 mEq/L (5.0-15.0); Potassium 3.9 mEq/L (3.5-5.1)
[2024-09-26] MEDS: FENTANYL CITR 100 MCG/2 ML ONE (09:48)
[2024-09-26] MEDS ORDERED: LIDOCAINE HCL/EPINEPHRINE 20 ML MDV ONE (10:35)
[2024-09-26] MEDS ORDERED: MIDAZOLAM HCL 2 MG/2 ML INJ ONE ×2 (10:37→10:47)
[2024-09-26] MEDS ORDERED: dexAMETHasone 10 MG/ML VIAL ONE (10:47)
[2024-09-26] MEDS ORDERED: propofoL 200 MG/20 ML VIAL IV ONE (10:47)
[2024-09-26] MEDS ORDERED: KETOROLAC 30 MG/ML INJ ONE (10:47)
[2024-09-26] MEDS ORDERED: LIDOCAINE 2% MPF 5 ML VIAL ONE (10:47)
[2024-09-26] MEDS ORDERED: ONDANSETRON 4 MG/2 ML VIAL ONE (10:47)
[2024-09-26] MEDS ORDERED: FENTANYL CITR 100 MCG/2 ML ONE (10:47)
[2024-09-26] MEDS ORDERED: ROCURONIUM 50 MG/5 ML VIAL IV ONE (10:48)
[2024-09-26] MEDS ORDERED: LIDOCAINE JELLY 2% 5 ML SYRINGE TOP ONE (11:24)
[2024-09-26] MEDS: LIDOCAINE JELLY 2% 5 ML SYRINGE TOP ONE (11:30)
[2024-09-26] MEDS ORDERED: GLYCOPYRROLATE 0.2 MG/ML SYR ONE (11:36)
[2024-09-26] MEDS ORDERED: NEOSTIGMINE 1 MG/ML -10 ML VIAL ONE (11:36)
--- NOTE | 2024-09-26 11:36 | P.OP ---
Preoperative diagnosis: Multiple Bilateral Lower Extremity Chronic Wounds Postoperative diagnosis: Multiple Bilateral Lower Extremity Chronic Wounds Primary procedure: Debridement of Multiple Bilateral Lower Extremity Chronic Wounds Secondary procedure: Pulse Lavage of Wounds Anesthesia: GETA + Local Estimated blood loss: <5cc Specimen: debridement tissue Findings: Multiple Bilateral Lower Extremity Chronic Wounds Complications: None Transferred to: Recovery Room Condition: Good
[2024-09-26] MEDS: HYDROMORPHONE HCL 1 MG/ML INJ ONE ×2 (12:00→12:27)
[2024-09-26] MEDS ORDERED: NA CHLORIDE 0.9% 1,000 ML ONE (12:26)
[2024-09-26] MEDS ORDERED: HYDROCODONE/APAP 10/325 TAB ONE (13:27)
[2024-09-26] MEDS: HYDROCODONE/APAP 10/325 TAB PO ONE (13:31)
[2024-09-26 14:07] VITALS: BP 121/94; TEMP 97; O2SAT 96
--- NOTE | 2024-09-26 22:16 | OP ---
Date of Procedure: 09/26/2024 Surgeon: Jai Tapia MD, Preoperative Diagnosis: Multiple bilateral lower extremity chronic wounds. Postoperative Diagnosis: Multiple bilateral lower extremity chronic wounds. Procedures Performed: Debridement of multiple bilateral lower extremity chronic wounds plus pulse la vaged of bilateral lower extremity wounds. Anesthesia: General endotracheal plus local with topical lidocaine. Estimated Blood Loss: 5 cc. Specimens: Debrided tissue. Findings: Multiple bilateral lower extremity chronic wounds extending to posterior capsule with some spotty others satellite lesions circumferentially around both legs in addition to the left great toe and 4th web space. Complications: None. Disposition: The patient was transferred to recovery room in good condition. Procedure In Detail: After informed consent was obtained, patient was brought to the operating room, prepped and draped in the usual sterile fashion. After adequate anesthesia was achieved, the patien t remained in supine position. I began by debriding, curetting all fibrinous buildup and superficial slough to the bilateral lower extremities. There was good granulation tissue around the majority of this. Only superficial slough and fibrinous buildup to bilateral calf areas was appreciated with mi nimal amounts of hypertrophic granulation tissues. No evidence of infection, necrosis, or any other findings to the posterior wounds. However, there were some new wounds to the toe area as well as the fourth web space, which were debrided using curette down to good healthy tissue. All of these were stage I-stage II in depth wounds with no significant undermining. After they were cleaned appropriat juventino, debrided tissue was sent for pathologic examination. The area was copiously irrigated and pulse lavaged until completely clear. All hemostasis was achieved with simple pressure at this point and sterile dressing was placed over top. The patient tolerated the procedure well without incident or c omplication and transferred to PACU in good condition. All counts were correct at the end of the aaron e. TK/MODL Voice ID: [id number] Report ID: [id number]
== END 2024-09-26 13:55 | disposition home or self-care (01) ==
LOC: OR 08:33
PROVIDERS: ATTEND Surgery
PROC: 0JDN3ZZ Extraction of Right Lower Leg Subcutaneous Tissue and Fascia, Percutaneous Approach (ICD-10-PCS; 2024-09-26)
PROC: 0JDP3ZZ Extraction of Left Lower Leg Subcutaneous Tissue and Fascia, Percutaneous Approach (ICD-10-PCS; principal; 2024-09-26 10:30)
DX: S81.802A Unspecified open wound, left lower leg, initial encounter (principal); S81.801A Unspecified open wound, right lower leg, initial encounter; S91.102A Unspecified open wound of left great toe without damage to nail, initial encounter; L98.492 Non-pressure chronic ulcer of skin of other sites with fat layer exposed
CPT/HCPCS: 36415; 80048; 82947; 85025; 88304; J1100; J1171; J2003; J2250; J2405; J2704; J2710; J3010; J3370; J7030; J7050